=== PATIENT | female | born 1945 | race Caucasian/White ===

== ENCOUNTER 2020-01-29 23:51 | Emergency (ER) | payer MEDICARE, SELFPAY ==
[2020-01-30] VITALS: BP 122/60; PULSE 80; RESP 18; O2SAT 99
[2020-01-30 00:54] VITALS: BP 130/63; PULSE 77; RESP 18; TEMP 36.9; BMI 53.6
[2020-01-30 01:07] VITALS: BP 130/63; PULSE 77; RESP 18; TEMP 36.9; O2SAT 98; BMI 53.6
--- NOTE | 2020-01-30 01:54 | ED.GENADULT ---
HPI - General Adult General Chief complaint: Extremity Injury, Lower Stated complaint: LEG PAIN Time Seen by Provider: 01/30/20 00:48 Source: patient Mode of arrival: ambulatory Limitations: no limitations History of Present Illness HPI narrative: 74-year-old female with a history of hyperlipidemia, hypothyroidism presents today with left leg pain. She reports that in the past she has occasionally gotten shooting, cramping pain that went up the anterior aspect of her left leg. She usually gets these and they stopped her knee. Tonight she was lying down, she had one of these episodes that shot up into her left groin. The pain was severe, but similar to prior episodes. She is concerned because the pain went up into her left groin. She denies any back pain. She denies any swelling in her legs. She denies any history of DVT or pulmonary embolism. She got up and walked around and over the course of several minutes the pain went away. She denies any numbness, weakness, paresthesias to her extremities at this time. She denies any chest pain or shortness of breath. Onset (ago): hour(s) Related Data Allergies Allergy/AdvReac Type Severity Reaction Status Date / Time No Known Allergies Allergy Unverified 01/15/20 17:05 penicillin Allergy Unknown Uncoded 12/15/19 00:00 succinylcholine Allergy Unknown Uncoded 12/15/19 00:00 Review of Systems Review of Systems: Yes all other systems are reviewed and are negative Constitutional: Constitutional: Denies chills, Denies fever(s) and Denies weakness Eyes: Eyes: Reports blurry vision, Reports decreased night vision and Denies itchy eyes ENT: Denies dry mouth Cardiovascular: Cardiovascular: Denies chest pain, Denies epigastric discomfort, Denies rapid heart rate and Denies dyspnea Respiratory: Respiratory: Denies cough and Denies dyspnea Gastrointestinal: Gastrointestinal: Denies constipation, Denies diarrhea, Denies nausea and Denies vomiting Genitourinary: Genitourinary: Denies urinary incontinence and Denies urinary hesitancy Musculoskeletal: Musculoskeletal: Reports myalgias ( Left leg pain), Denies numbness, Denies stiffness, Denies tingling and Reports other ( Anterior left leg pain extending into her left groin) Integumentary/Breasts: Skin/Breast: Denies lesions and Denies rash Neurologic: Denies confusion, Denies numbness, Denies tingling and Denies weakness Psychiatric: Psychiatric: Denies confusion Hematologic/Lymphatic: Hematologic/Lymphatic: Denies easy bleeding and Denies easy bruising Allergic/Immunologic: Allergic/Immunologic: Denies urticaria and Denies itchy eyes PMFSH Past Medical History Medical History Hypercholesteremia Social History Social History Advance Directives: No Advance Directives Information Provided: No Physical Exam Vital Signs and I&O and Narrative: Vital Signs and I&O: Vital Signs Temp 98.4 F 01/30/20 01:07 Pulse 77 01/30/20 01:07 Resp 18 01/30/20 01:07 BP 130/63 01/30/20 01:07 Pulse Ox 98 01/30/20 01:07 Intake & Output 01/29/20 01/29/20 01/30/20 06:59 18:59 06:59 Weight 133 kg Body Mass Index 53.6 Const: General: cooperative, no acute distress, alert and awake; No confusion Orientation/consciousness: patient oriented x3 and No confusion HENMT: Head: Yes normal to inspection, Yes normocephalic and Yes atraumatic Ears: hearing grossly normal bilaterally and external ears normal Mouth: Normal oral and palatal mucosa present Eyes: Eyelids: Yes eyelids normal Conjunctivae: conjunctivae normal Sclerae: sclerae normal Corneas: corneas normal EOM: EOMs intact bilaterally Neck: Neck: Yes normal visual inspection, Yes full ROM and Yes trachea midline Resp: Effort & Inspection: normal respiratory effort and no tracheal deviation Auscultation: clear to auscultation bilaterally Cardio: Jugular venous distension: no JVD Rate: regular rate Rhythm: regular rhythm Heart sounds: S1 normal heart sound present and S2 normal heart sound present GI: Inspection: Yes normal to inspection Palpation (GI): Soft to palpation and nontender Skin: General skin exam: no rashes or lesions noted Neuro: General: patient oriented x3, moves all extremities and No confusion Motor exam (neuro): Normal motor muscle tone present throughout Extrem: General: Yes normal to inspection and Yes full ROM Left lower extremity: normal to inspection, full ROM, normal capillary refill and no joint enlargement; no cyanosis and no edema Psych: Appearance: grossly normal and well kempt Mental Status: mental status grossly normal Medical Decision Making MDM Narrative Medical decision making narrative: 74-year-old female presenting today with sudden onset cramping pain on the anterior aspect of her left leg that extended up into her groin. She is neurovascularly intact. The sensation was only intermittent in nature. She denies any history of DVT and there is no leg swelling and I have low suspicion of DVT in this patient. Differential includes muscle spasm versus electrolyte abnormality. Laboratory not reveal any evidence of hypokalemia or hypomagnesemia, the rest of her lab work is reassuring. The patient was provided with discharge instructions and return precautions which she acknowledged. Lab Data Result diagrams: 01/30/20 02:37 01/30/20 02:37 Labs: Lab Results 01/30/20 01/30/20 Range/Units 02:37 02:37 WBC 6.8 (4.8-10.8) X10*3/uL RBC 4.41 (4.20-5.50) X10*6/uL Hgb 13.3 (12.0-16.0) g/dl Hct 39.0 (37-47) % MCV 88.4 (80-98) fL MCH 30.2 (27.0-33.0) pg MCHC 34.1 (31.0-35.0) g/dl RDW 13.5 (11.0-16.0) % Plt Count 220 (160-400) X10*3/uL MPV 9.4 (9.4-12.3) fL Immature Gran % (Auto) 0.1 (0.0-0.4) % Neut % (Auto) 73.1 H (45-73) % Lymph % (Auto) 16.1 L (20-40) % [place] % (Auto) 8.4 (2-11) % Eos % (Auto) 1.9 (0-4) % Baso % (Auto) 0.4 (0-2) % Neut # (Auto) 5.0 (2.0-8.3) X10*3/uL Lymph # (Auto) 1.1 L (1.2-4.9) X10*3/uL [place] # (Auto) 0.6 (0.1-1.2) X10*3/uL Eos # (Auto) 0.1 (0.0-0.4) X10*3/uL Baso # (Auto) 0.0 (0.0-0.2) X10*3/uL Abs Immat Gran (auto) 0.01 (0.00-0.03) X10*3/uL Absolute Nucleated RBC 0.000 (0.0-0.012) X10*3/uL Nucleated RBC % (auto) 0.0 (0.0-0.2) /100WBC Sodium 140 (135-145) mmol/L Potassium 3.7 (3.3-5.1) mmol/l Chloride 105 (96-108) mmol/L Carbon Dioxide 26 (22-29) mmol/L Anion Gap 13 (12-20) BUN 16 (9-16) mg/dL Creatinine 0.72 (0.5-1.4) mg/dL Estim Creat Clear Calc 92.8 Estimated GFR > 60 Random Glucose 93 (60-115) mg/dL Calcium 9.0 (8.4-10.2) mg/dL Magnesium 2.3 (1.6-2.6) mg/dL Discharge Plan Discharge Clinical Impression: Acute pain of left lower extremity Patient Disposition: Home, Self-Care Instructions: Leg Cramps (ED) Additional Instructions: Your lab work was reassuring. Please followup with your primary care doctor in 1-2 days for reevaluation. If you develop any new or concerning symptoms please return to the emergency department. Interventions: ED Discharge Assessment Last Done: 01/30/20 04:13 Discharge Date/Time: 01/30/20 04:15
[2020-01-30 02:44] LABS: MANUAL DIFF FLAG NO
[2020-01-30 02:45] LABS: Basophils Percent Auto 0.4 % (0-2); Eosinophils Absolute Auto 0.1 X10*3/uL (0.0-0.4); Eosinophils Percent Auto 1.9 % (0-4); Hemoglobin 13.3 g/dl (12.0-16.0); Imm Gran Abs Auto 0.01 X10*3/uL (0.00-0.03); Imm Gran Pct Auto 0.1 % (0.0-0.4); Lymphocytes Absolute Auto 1.1 X10*3/uL (1.2-4.9); Lymphocytes Percent Auto 16.1 % (20-40); Mean Corpuscular HGB Conc 34.1 g/dl (31.0-35.0); Mean Corpuscular Hemoglobin 30.2 pg (27.0-33.0); Mean Corpuscular Volume 88.4 fL (80-98); Mean Platelet Volume 9.4 fL (9.4-12.3); Monocytes Absolute Auto 0.6 X10*3/uL (0.1-1.2); Monocytes Percent Auto 8.4 % (2-11); Neutrophils Percent Auto 73.1 % (45-73); Platelet Count 220 X10*3/uL (160-400); Red Blood Count 4.41 X10*6/uL (4.20-5.50); Red Cell Distribution Width 13.5 % (11.0-16.0); White Blood Count 6.8 X10*3/uL (4.8-10.8)
[2020-01-30 03:14] LABS: Anion Gap 13 (12-20); Blood Urea Nitrogen 16 mg/dL (9-16); Carbon Dioxide 26 mmol/L (22-29); Chloride 105 mmol/L (96-108); Creatinine Clr Calc Pharmacy 92.8; Estimated Glomerular Filt Rate > 60; Glucose Random 93 mg/dL (60-115); Magnesium 2.3 mg/dL (1.6-2.6); Potassium 3.7 mmol/l (3.3-5.1); Sodium 140 mmol/L (135-145)
== END 2020-01-30 04:15 | disposition home or self-care (01) ==
PROVIDERS: Emergency Provider Emergency Medicine; PCP Internal Medicine
DX: M79.662 Pain in left lower leg (principal); E03.9 Hypothyroidism, unspecified; Z79.899 Other long term (current) drug therapy
CPT/HCPCS: 36415; 80048; 83735; 85025; 99283; 99284

== ENCOUNTER 2020-02-25 08:24 | Outpatient (REF) | payer MEDICARE, SELFPAY ==
--- NOTE | 2020-02-25 | US_ITS ---
EXAMINATION: US ABDOMEN COMPLETE CLINICAL INFORMATION: Epigastric pain. COMPARISON: CT abdomen and pelvis 12/26/2017. Ultrasound abdomen 06/21/2010. TECHNIQUE: Real-time imaging of the abdominal viscera. FINDINGS: PANCREAS: Normal. ABDOMINAL AORTA: The proximal, mid, and distal segments are normal in caliber. INFERIOR VENA CAVA: Visualized portions are normal. LIVER: Normal. The liver is normal in size. The liver contour is normal. Parenchymal echogenicity is normal. No focal hepatic lesion. There is no intrahepatic biliary duct dilatation seen. There is normal hepatopedal flow seen in the middle portal vein on Doppler exam GALLBLADDER: Normal. The gallbladder is physiologically distended without evidence of stones, sludge, polyps, wall thickening or pericholecystic fluid. COMMON BILE DUCT: Normal in caliber measuring 0.2 cm in diameter. RIGHT KIDNEY: There is anechoic cyst in the upper pole measuring 0.9 x 1.2 x 1.4 cm in lower pole measuring 0.8 x 1.1 x 0.8 cm . No hydronephrosis or renal calculi. The kidney measures 10.1 cm in maximum dimension. LEFT KIDNEY: Normal. No hydronephrosis. No renal calculi or focal parenchymal lesions. The kidney measures 9.0 cm in maximum dimension. SPLEEN: Normal. The spleen measures 7.7 cm in maximum dimension. FREE FLUID: None. US/US abdomen complete IMPRESSION: 2 anechoic cyst upper lobe pole right kidney. Rest of the abdominal ultrasound is unremarkable
== END 2020-02-25 08:25 | disposition home or self-care (01) ==
LOC: HO.HMGCX 08:24
PROVIDERS: PCP Internal Medicine; Visit Provider Internal Medicine
DX: R10.13 Epigastric pain (principal)
CPT/HCPCS: 76700

== ENCOUNTER → 2020-03-10 10:38 | Outpatient (BNVA) | payer MEDICARE, SELFPAY | PROVIDERS: PCP Internal Medicine; Visit Provider Internal Medicine Cardiovascular Disease | DX: R07.9 Chest pain, unspecified (principal); I95.9 Hypotension, unspecified | CPT/HCPCS: 99212 ==

== ENCOUNTER 2020-03-31 09:29 | Day surgery (SDC) | payer MEDICARE, SELFPAY ==
[2020-03-24 12:49] VITALS: BMI 19.7
--- NOTE | 2020-03-30 10:16 | HO.ANESPROP2 ---
Documented by User: Alejandrina Murguia 03/30/20 10:18 HPI - Anesthesia Eval Consult details Narrative: 74yo F for Upper Endoscopy Pseudocholinesterase Deficiency [facility] Past Medical History Medical History (Updated 03/24/20 @ 12:57 by Alejandrina Murguia) Crohn's colitis Hypercholesteremia Hypertension Hypothyroidism Pseudocholinesterase deficiency Ulcerative colitis Family History Family History (Updated 03/08/20 @ 09:04 by Ahmet Roth) Father Lung disease Mother Bone disease Diverticular disease Family/Other Thyroid condition Stomach cancer Surgical History Surgical History (Updated 03/24/20 @ 12:22 by Melanie Rahman) History of tonsillectomy Hx of oral surgery Hx of partial thyroidectomy History of Problems with Anesthesia: Yes (Pseudocholinesterase Deficiency) Social History Social History (Updated 03/24/20 @ 12:51 by Melanie Rahman) Alcohol intake: never Smoking Status: Never smoker Advance Directives: No Advance Directives Information Provided: No Advance Directives on File: No Meds Allergies Allergy/AdvReac Type Severity Reaction Status Date / Time penicillin Allergy Severe Hives Uncoded 03/24/20 12:46 succinylcholine Allergy Severe pseudocholinesterase Uncoded 03/24/20 12:46 deficiency Home Medications Medication Instructions Recorded Confirmed Type atorvastatin 10 mg tablet 10 mg PO DAILY 03/10/20 03/24/20 History calcium carbonate 600 mg (1,500 2 tab PO DAILY 03/10/20 03/24/20 History mg)-vitamin D3 400 unit tablet ferrous sulfate 325 mg (65 mg 325 mg PO DAILY 03/10/20 03/24/20 History iron) tablet cholecalciferol (vitamin D3) 25 mcg PO DAILY 03/24/20 03/24/20 History [Vitamin D3] mesalamine [Lialda] 1.2 g PO DAILY 03/24/20 03/24/20 History multivitamin 1 tab PO DAILY 03/24/20 03/24/20 History Exam Exam Date and Time: March 30, 2020 1016 Height,Weight and Vital Signs: Height 5 ft 2 in Weight 48.988 kg Pertinent Lab Results Pertinent Lab Results: Laboratory Tests 01/30/20 01/30/20 02:37 02:37 WBC 6.8 Hgb 13.3 Hct 39.0 Plt Count 220 Sodium 140 Potassium 3.7 Chloride 105 Carbon Dioxide 26 BUN 16 Creatinine 0.72 Assessment and Plan Assessment Anesthesia Assessment: Chart Reviewed Documented by User: Herrera Keating 03/31/20 11:00 PMFSH Past Medical History Medical History (Updated 03/24/20 @ 12:57 by Alejandrina Murguia) Crohn's colitis Hypercholesteremia Hypertension Hypothyroidism Pseudocholinesterase deficiency Ulcerative colitis Family History Family History (Updated 03/08/20 @ 09:04 by Ahmet Roth) Father Lung disease Mother Bone disease Diverticular disease Family/Other Thyroid condition Stomach cancer Surgical History Surgical History (Updated 03/24/20 @ 12:22 by Melanie Rahman) History of tonsillectomy Hx of oral surgery Hx of partial thyroidectomy Social History Social History (Updated 03/24/20 @ 12:51 by Melanie Rahman) Alcohol intake: never Smoking Status: Never smoker Advance Directives: No Advance Directives Information Provided: No Advance Directives on File: No Meds Allergies Allergy/AdvReac Type Severity Reaction Status Date / Time penicillin Allergy Severe Hives Uncoded 03/24/20 12:46 succinylcholine Allergy Severe pseudocholinesterase Uncoded 03/24/20 12:46 deficiency Home Medications Medication Instructions Recorded Confirmed Type atorvastatin 10 mg tablet 10 mg PO DAILY 03/10/20 03/24/20 History calcium carbonate 600 mg (1,500 2 tab PO DAILY 03/10/20 03/24/20 History mg)-vitamin D3 400 unit tablet ferrous sulfate 325 mg (65 mg 325 mg PO DAILY 03/10/20 03/24/20 History iron) tablet cholecalciferol (vitamin D3) 25 mcg PO DAILY 03/24/20 03/24/20 History [Vitamin D3] mesalamine [Lialda] 1.2 g PO DAILY 03/24/20 03/24/20 History multivitamin 1 tab PO DAILY 03/24/20 03/24/20 History Exam Airway Mallampati Class: II TM Dist: >3cm Neck ROM: Full Loose/Missing/Broken Teeth: No Heart: [id number] Lungs: cta b/l Assessment and Plan Assessment Anesthesia Assessment: Anesthesia Plan Discussed, PAT Visit and Chart Reviewed Final Anesthetic Review NPO: Yes ASA Class: II Final Preanesthetic Review: No Changes in Pt Med Stat, Meds/Allgs Chart Reviewed, Consent Obtained/Reviewed and Anes Risks/Benef Reviewed Patient Risk: Low Procedure Risk: Low Assessment/Block/Sedation in SS: Assess/Block/Sedation-SS Anesthetic Plan Anesthetic Plan: MAC: Disposition: Standard PACU
[2020-03-31] VITALS (9 sets, daily range): BP systolic 71–120; BP diastolic 39–67; PULSE 66–83; RESP 14–19; TEMP 36.3–36.9; O2SAT 94–99
[2020-03-31] MEDS: Lactated Ringers 1,000 ML 100 ML IVCONT (10:00)
--- NOTE | 2020-03-31 11:14 | PM.OP ---
Brief Operative Note Date of Service: 03/31/20 Pre-op diagnosis: Abdominal pain Post-op diagnosis: other (Proximal gastric ulcer, Hiatal hernia, R/O Bentley's, Antral gastritis) Procedure: EGD with biopsy Surgeon: Hans Tyler Anesthesia: MAC Estimated blood loss (mL): 4.0 Pathology: other (A. Gastric antrum B. Proximal gastric ulcer C. EG Junction at 35cm) Condition: stable Disposition: PACU
--- NOTE | 2020-03-31 11:40 | OP_ITS ---
SURGEON: Hans Tyler MD INDICATIONS: The patient presents for evaluation of abdominal discomfort. Full consent has been obtained from her for this, including risks of bleeding and perforation. PREOPERATIVE DIAGNOSIS: Abdominal discomfort. POSTOPERATIVE DIAGNOSIS: PROCEDURE PERFORMED: Esophagogastroduodenoscopy with biopsies. ESTIMATED BLOOD LOSS: COMPLICATIONS: ANESTHESIA: Monitored anesthesia care. ASSISTANTS: SPECIMENS: POSTOPERATIVE DIAGNOSES: Abdominal discomfort, small proximal gastric ulcer, hiatal hernia, rule out Bentley's esophagus, mild antral gastritis. DESCRIPTION OF PROCEDURE: The patient was placed in the left lateral decubitus position. The Olympus video gastroscope was passed in the posterior oropharynx and upper esophagus under direct vision. The scope was passed slowly into the distal esophagus. The gastroesophageal junction appeared at 35 cm. Extending from this to just 34 cm, was a small patch of possible Bentley's mucosa. There was no esophagitis nor any lesions. The scope was entered into the stomach. There was a small hiatal hernia. The scope was advanced to pylorus and duodenum was cannulated to the descending portion. The duodenum including the bulb appeared normal without mass or ulceration. The scope was withdrawn back in the stomach. The gastric antrum had some areas of erythema and edema, but no erosions or ulceration. There was good peristalsis. The scope was retroflexed visualizing the proximal stomach carefully, which appeared normal, without any mass or ulceration. The scope was straightened. Biopsies were obtained from the gastric antrum. The scope was withdrawn back into the proximal stomach. In the forward viewing position, approximately 5 cm below the EG junction, on the posterior wall, was an approximately 5 mm gastric ulcer with some surrounding edema. There was no sign of bleeding nor any mass. Biopsies were obtained from it. The remainder of the proximal stomach appeared normal. The scope was withdrawn back into the esophagus. Biopsies were obtained between 34 and 35 cm in the area of possible Bentley's mucosa. The remainder of the esophagus appeared completely normal. The scope was withdrawn from the patient. She tolerated the procedure well and was returned to recovery area in stable condition. IMPRESSION: 1. Small proximal gastric ulcer. 2. Mild gastritis. 3. Hiatal hernia. 4. Rule out Bentley's esophagus. PLAN: The results of the biopsies will be checked. If Helicobacter pylori is present in the gastric biopsies, we could consider treating that. I shall send her home with a prescription to use omeprazole 20 mg daily. She was advised to avoid all aspirin and NSAIDs. She was advised to see me in 2 to 3 months for a followup visit. Recent abdominal ultrasound was negative other than some renal cysts. There was no evidence of any gallstones. This has all been discussed with her . MD MIS Hurst/OTTO / [id number]
== END 2020-03-31 12:11 | disposition home or self-care (01) ==
PROVIDERS: PCP Internal Medicine; Visit Provider Internal Medicine
PROC: 0DJ08ZZ Inspection of Upper Intestinal Tract, Via Natural or Artificial Opening Endoscopic (ICD-10-PCS; CPT 43235; principal; 2020-03-31 10:30)
DX: K25.7 Chronic gastric ulcer without hemorrhage or perforation (principal); K29.70 Gastritis, unspecified, without bleeding; K44.9 Diaphragmatic hernia without obstruction or gangrene; E88.09 Other disorders of plasma-protein metabolism, not elsewhere classified; K50.10 Crohn's disease of large intestine without complications; Z79.899 Other long term (current) drug therapy
CPT/HCPCS: 43239; 88305; 88342

== ENCOUNTER 2020-06-09 08:35 | Outpatient (REF) | payer MEDICARE, SELFPAY ==
[2020-06-09 11:11] LABS: MANUAL DIFF FLAG NO
[2020-06-09 11:34] LABS: Basophils Percent Auto 0.7 % (0-2); Eosinophils Absolute Auto 0.1 X10*3/uL (0.0-0.4); Eosinophils Percent Auto 2.6 % (0-4); Hematocrit 43.7 % (37-47); Hemoglobin 14.4 g/dl (12.0-16.0); Imm Gran Abs Auto 0.01 X10*3/uL (0.00-0.03); Imm Gran Pct Auto 0.2 % (0.0-0.4); Lymphocytes Absolute Auto 0.9 X10*3/uL (1.2-4.9); Lymphocytes Percent Auto 16.7 % (20-40); Mean Corpuscular Hemoglobin 29.5 pg (27.0-33.0); Mean Corpuscular Volume 89.5 fL (80-98); Mean Platelet Volume 10.3 fL (9.4-12.3); Monocytes Absolute Auto 0.4 X10*3/uL (0.1-1.2); Monocytes Percent Auto 7.9 % (2-11); Neutrophils Absolute Auto 3.8 X10*3/uL (2.0-8.3); Neutrophils Percent Auto 71.9 % (45-73); Platelet Count 240 X10*3/uL (160-400); Red Blood Count 4.88 X10*6/uL (4.20-5.50); Red Cell Distribution Width 13.5 % (11.0-16.0); White Blood Count 5.3 X10*3/uL (4.8-10.8)
[2020-06-09 12:01] LABS: Alanine Aminotransferase 26 U/L (0-31); Aspartate Amino Transferase 26 U/L (5-31); Ferritin 28 ng/mL (10-250); HDL Cholesterol 60 mg/dL; Iron 88 mcg/dL (30-160); Percent Iron Saturation 27 % (15-50); Thyroid Stimulating Hormone 2.68 uIU/mL (0.32-4.0); Total Iron Binding Capacity 327 mcg/dL (228-428); Unsaturated Iron Binding 239 ug/dL; Vitamin D 25-OH Total 73.9 ng/mL (>30)
[2020-06-09 12:03] LABS: Albumin Level 4.2 g/dL (3.5-5.0); Alkaline Phosphatase 88 U/L (39-117); Anion Gap 11 (12-20); Bilirubin Total 0.5 mg/dL (0.0-1.0); Blood Urea Nitrogen 14 mg/dL (9-16); Carbon Dioxide 32 mmol/L (22-29); Chloride 103 mmol/L (96-108); Cholesterol 162 mg/dL; Estimated Glomerular Filt Rate > 60; Glucose Fasting 92 mg/dL (60-99); LDL Cholesterol Calculated 91 mg/dl; Potassium 4.7 mmol/L (3.3-5.1); Sodium 141 mmol/L (135-145); Total Protein 6.9 g/dL (6.5-8.0); Triglycerides 58 mg/dL
== END 2020-06-09 08:36 | disposition home or self-care (01) ==
LOC: HO.HMGCLDS 08:35
PROVIDERS: PCP Internal Medicine; Visit Provider Internal Medicine
DX: E78.00 Pure hypercholesterolemia, unspecified (principal); K51.90 Ulcerative colitis, unspecified, without complications; D50.0 Iron deficiency anemia secondary to blood loss (chronic); E04.2 Nontoxic multinodular goiter
CPT/HCPCS: 36415; 80053; 80061; 82306; 82728; 83540; 84443; 85025

== ENCOUNTER 2020-12-10 08:25 | Outpatient (REF) | payer MEDICARE, SELFPAY ==
[2020-12-10 11:29] LABS: MANUAL DIFF FLAG NO
[2020-12-10 11:38] LABS: Basophils Percent Auto 0.8 % (0-2); Eosinophils Absolute Auto 0.1 X10*3/uL (0.0-0.4); Eosinophils Percent Auto 2.5 % (0-4); Hematocrit 43.1 % (37-47); Hemoglobin 14.3 g/dl (12.0-16.0); Imm Gran Abs Auto 0.01 X10*3/uL (0.00-0.03); Imm Gran Pct Auto 0.2 % (0.0-0.4); Lymphocytes Absolute Auto 0.9 X10*3/uL (1.2-4.9); Lymphocytes Percent Auto 19.4 % (20-40); Mean Corpuscular HGB Conc 33.2 g/dl (31.0-35.0); Mean Corpuscular Hemoglobin 29.2 pg (27.0-33.0); Monocytes Absolute Auto 0.4 X10*3/uL (0.1-1.2); Monocytes Percent Auto 8.3 % (2-11); Neutrophils Absolute Auto 3.3 X10*3/uL (2.0-8.3); Neutrophils Percent Auto 68.8 % (45-73); Platelet Count 256 X10*3/uL (160-400); Red Cell Distribution Width 13.1 % (11.0-16.0); White Blood Count 4.8 X10*3/uL (4.8-10.8)
[2020-12-10 11:55] LABS: Alanine Aminotransferase 21 U/L (0-31); Albumin Level 4.2 g/dL (3.5-5.0); Alkaline Phosphatase 83 U/L (39-117); Anion Gap 12 (12-20); Aspartate Amino Transferase 22 U/L (5-31); Bilirubin Total 0.5 mg/dL (0.0-1.0); Blood Urea Nitrogen 15 mg/dL (9-16); Calcium 9.5 mg/dL (8.4-10.2); Carbon Dioxide 29 mmol/L (22-29); Chloride 104 mmol/L (96-108); Cholesterol 215 mg/dL; Estimated Glomerular Filt Rate > 60; Glucose Fasting 95 mg/dL (60-99); HDL Cholesterol 56 mg/dL; Iron 131 mcg/dL (30-160); LDL Cholesterol Calculated 143 mg/dl; Percent Iron Saturation 40 % (15-50); Potassium 4.6 mmol/L (3.3-5.1); Sodium 140 mmol/L (135-145); Total Iron Binding Capacity 328 mcg/dL (228-428); Total Protein 7.1 g/dL (6.5-8.0); Triglycerides 84 mg/dL; Unsaturated Iron Binding 197 ug/dL
[2020-12-10 12:18] LABS: Thyroid Stimulating Hormone 2.91 uIU/mL (0.32-4.0); Vitamin D 25-OH Total 60.5 ng/mL (>30)
[2020-12-10 12:22] LABS: Ferritin 31 ng/mL (10-250)
== END 2020-12-10 08:26 | disposition home or self-care (01) ==
LOC: HO.HMGCLDS 08:25
PROVIDERS: PCP Internal Medicine; Visit Provider Internal Medicine
DX: F41.9 Anxiety disorder, unspecified (principal); K51.90 Ulcerative colitis, unspecified, without complications; D50.0 Iron deficiency anemia secondary to blood loss (chronic); E78.00 Pure hypercholesterolemia, unspecified; E04.2 Nontoxic multinodular goiter
CPT/HCPCS: 36415; 80053; 80061; 82306; 82728; 83540; 84443; 85025

== ENCOUNTER → 2021-03-09 09:47 | Outpatient (BNVA) | payer MEDICARE, SELFPAY | PROVIDERS: PCP Internal Medicine; Visit Provider Internal Medicine Cardiovascular Disease | DX: R07.9 Chest pain, unspecified (principal); R03.1 Nonspecific low blood-pressure reading; E78.00 Pure hypercholesterolemia, unspecified; E78.5 Hyperlipidemia, unspecified; E89.0 Postprocedural hypothyroidism; K51.90 Ulcerative colitis, unspecified, without complications; F41.9 Anxiety disorder, unspecified; Z88.0 Allergy status to penicillin; Z88.8 Allergy status to other drugs, medicaments and biological substances; Z79.899 Other long term (current) drug therapy | CPT/HCPCS: 93005; 99212 ==

== ENCOUNTER 2021-07-22 11:15 | Outpatient (REF) | payer MEDICARE, SELFPAY ==
[2021-07-22 13:37] LABS: MANUAL DIFF FLAG NO
[2021-07-22 13:40] LABS: Basophils Percent Auto 0.5 % (0-2); Eosinophils Absolute Auto 0.1 X10*3/uL (0.0-0.4); Eosinophils Percent Auto 1.8 % (0-4); Hematocrit 41.8 % (37.0-47.0); Hemoglobin 13.2 g/dl (12.0-16.0); Imm Gran Abs Auto 0.02 X10*3/uL (0.00-0.03); Imm Gran Pct Auto 0.3 % (0.0-0.4); Lymphocytes Absolute Auto 1.2 X10*3/uL (1.2-4.9); Mean Corpuscular HGB Conc 31.6 g/dl (31.0-35.0); Mean Corpuscular Hemoglobin 28.4 pg (27.0-33.0); Mean Corpuscular Volume 90.1 fL (80.0-98.0); Mean Platelet Volume 9.5 fL (9.4-12.3); Monocytes Absolute Auto 0.5 X10*3/uL (0.1-1.2); Monocytes Percent Auto 7.1 % (2-11); Neutrophils Absolute Auto 5.4 x10*3/uL (2.0-8.3); Neutrophils Percent Auto 74.3 % (45-73); Platelet Count 343 X10*3/uL (160-400); Red Blood Count 4.64 X10*6/uL (4.20-5.50); Red Cell Distribution Width 13.1 % (11.0-16.0); White Blood Count 7.3 X10*3/uL (4.8-10.8)
[2021-07-22 13:51] LABS: Appearance Urine HAZY; Color Urine STRAW; Glucose Urine UA NEG (NEG); Leukocyte Esterase Urine NEG (NEG); Nitrite Urine NEG (NEG); PH 5.5 (5.0-8.0); Specific Gravity - Urine <= 1.005 (1.005-1.025); Urine Blood TRACE (NEG); Urine Ketones NEG (NEG); Urine Protein NEG (NEG-TRACE)
[2021-07-22 14:04] LABS: RBC Urine 0-2 /HPF (0); Squamous Epithelial Cell Urine TRACE /LPF; WBC Urine 0-2 /HPF (0-4)
[2021-07-22 14:09] LABS: Alanine Aminotransferase 22 U/L (0-31); Albumin Level 4.1 g/dL (3.5-5.0); Alkaline Phosphatase 86 U/L (39-117); Anion Gap 12 (12-20); Aspartate Amino Transferase 21 U/L (5-31); Bilirubin Total 0.4 mg/dL (0.0-1.0); Blood Urea Nitrogen 15 mg/dL (9-16); C Reactive Protein 0.52 mg/dL (< or = 0.50); Calcium 9.8 mg/dL (8.4-10.2); Carbon Dioxide 31 mmol/L (22-29); Chloride 101 mmol/L (96-108); Estimated Glomerular Filt Rate > 60; Glucose Random 85 mg/dL (60-115); Potassium 5.6 mmol/L (3.3-5.1); Sodium 138 mmol/L (135-145); Total Protein 7.1 g/dL (6.5-8.0)
[2021-07-22 14:20] LABS: Erythrocyte Sedimentation Rate 15 MM/HR (0-20)
== END 2021-07-22 11:16 | disposition home or self-care (01) ==
LOC: HO.HMGCLDS 11:15
PROVIDERS: Visit Provider Internal Medicine
DX: R42 Dizziness and giddiness (principal); R53.83 Other fatigue
CPT/HCPCS: 36415; 80053; 81001; 85025; 85652; 86140

== ENCOUNTER 2021-10-13 07:44 | Outpatient (REF) | payer MEDICARE, SELFPAY ==
[2021-10-13 08:15] LABS: MANUAL DIFF FLAG NO
[2021-10-13 08:39] LABS: Basophils Percent Auto 0.7 % (0-2); Eosinophils Absolute Auto 0.1 X10*3/uL (0.0-0.4); Eosinophils Percent Auto 2.4 % (0-4); Hematocrit 42.4 % (37.0-47.0); Hemoglobin 14.1 g/dl (12.0-16.0); Imm Gran Abs Auto 0.01 X10*3/uL (0.00-0.03); Imm Gran Pct Auto 0.2 % (0.0-0.4); Mean Corpuscular HGB Conc 33.3 g/dl (31.0-35.0); Mean Corpuscular Volume 87.1 fL (80.0-98.0); Mean Platelet Volume 9.1 fL (9.4-12.3); Monocytes Absolute Auto 0.4 X10*3/uL (0.1-1.2); Monocytes Percent Auto 7.4 % (2-11); Neutrophils Absolute Auto 4.2 x10*3/uL (2.0-8.3); Neutrophils Percent Auto 72.3 % (45-73); Platelet Count 254 X10*3/uL (160-400); Red Blood Count 4.87 X10*6/uL (4.20-5.50); Red Cell Distribution Width 14.3 % (11.0-16.0); White Blood Count 5.8 X10*3/uL (4.8-10.8)
[2021-10-13 09:03] LABS: Alanine Aminotransferase 24 U/L (0-31); Albumin Level 4.2 g/dL (3.5-5.0); Alkaline Phosphatase 87 U/L (39-117); Anion Gap 11 (12-20); Aspartate Amino Transferase 24 U/L (5-31); Bilirubin Total 0.4 mg/dL (0.0-1.0); Blood Urea Nitrogen 16 mg/dL (9-16); C Reactive Protein 0.18 mg/dL (< or = 0.50); Calcium 9.5 mg/dL (8.4-10.2); Carbon Dioxide 29 mmol/L (22-29); Chloride 105 mmol/L (96-108); Cholesterol 218 mg/dL; Estimated Glomerular Filt Rate > 60; Glucose Fasting 97 mg/dL (60-99); HDL Cholesterol 50 mg/dL; LDL Cholesterol Calculated 153 mg/dl; Sodium 140 mmol/L (135-145); Triglycerides 78 mg/dL
[2021-10-13 09:26] LABS: Thyroid Stimulating Hormone 2.98 uIU/mL (0.32-4.0)
== END 2021-10-13 07:45 | disposition home or self-care (01) ==
LOC: HO.LAB 07:44
PROVIDERS: PCP Internal Medicine; Visit Provider Internal Medicine
DX: K51.90 Ulcerative colitis, unspecified, without complications (principal); D50.0 Iron deficiency anemia secondary to blood loss (chronic); I87.2 Venous insufficiency (chronic) (peripheral)
CPT/HCPCS: 36415; 80053; 80061; 84443; 85025; 86140

== ENCOUNTER 2021-10-17 08:34 | Day surgery (SDC) | payer MEDICARE, SELFPAY ==
[2021-10-11 12:02] VITALS: BMI 20.5
--- NOTE | 2021-10-13 13:28 | P.CONAN_ITS ---
Documented by User: Alejandrina Murguia NP 10/13/21 13:31 HPI - Anesthesia Eval Consult details Narrative: 76yo F for Colonoscopy Pseudocholinesterase deficiency PMFSH Active Problems Active Problems: All Active Problems (Updated 03/24/20 @ 12:57 by Alejandrina Murguia NP) Chest pain (Acute) Hypertension (Acute) Past Medical History Medical History Crohn's colitis Hypercholesteremia Hypothyroidism Pseudocholinesterase deficiency Ulcerative colitis Family History Family History Father Lung disease Mother Bone disease Diverticular disease Family/Other Thyroid condition Stomach cancer Surgical History Surgical History History of esophagogastroduodenoscopy (EGD) History of tonsillectomy Hx of colonoscopy Hx of oral surgery Hx of partial thyroidectomy History of Problems with Anesthesia: Yes (Pseudocholinesterase Deficiency) Social History Social History Alcohol intake: never Patient Tobacco Use Status: Never used Tobacco Use of substances other than those prescribed or required for medical reasons: No Are you DNR?: No Advance Directives: No Advance Directives Information Provided: Yes Meds Allergies Allergy/AdvReac Type Severity Reaction Status Date / Time penicillin Allergy Severe Hives Uncoded 10/17/21 09:50 succinylcholine Allergy Severe pseudocholinesterase Uncoded 10/17/21 09:50 deficiency Home Medications Medication Instructions Recorded Confirmed Last Taken Type cholecalciferol (vitamin D3) 25 25 mcg PO DAILY 03/24/20 10/17/21 Unknown Histo ry mcg (1,000 unit) capsule (Vitamin D3) mesalamine 1.2 gram tablet,delayed 1.2 g PO DAILY 03/24/20 10/17/21 Unknown History release (Lialda) multivitamin 1 tab PO DAILY 03/24/20 10/17/21 Unknown History Exam Exam Date and Time: October 13, 2021 1328 Height,Weight and Vital Signs: Height 5 ft 2 in Weight 50.802 kg Pertinent Lab Results Pertinent Lab Results: Laboratory Tests 10/13/21 10/13/21 08:14 08:14 WBC 5.8 Hgb 14.1 Hct 42.4 Plt Count 254 D Sodium 140 Potassium 5.0 Chloride 105 Carbon Dioxide 29 BUN 16 Creatinine 0.79 Narrative Narrative: EKG 02/2021 NSR 67/min, normal EKG, QTc 378 msec Echocardiography November 2019 showing normal left ventricular ejection fraction of 55-60%, mild mitral valve regurgitation, [id number] tricuspid valve regurgitation and mild pulmonary hypertension. Stress test performed 12/25/2019, she was able to exercise for 7 minutes 6 seconds achieving a workload of 8.6 Mets.? No ischemic changes were noticed.? She had isolated atrial premature beats.? Stress echocardiography did not show any wall motion abnormality at rest or with stress. Assessment and Plan Assessment Anesthesia Assessment: Chart Reviewed Final Anesthetic Review History of Problems with Anesthesia: Yes (Pseudocholinesterase Deficiency) Documented by User: Karina Key MD 10/17/21 10:11 [facility] Past Medical History Medical History Crohn's colitis Hypercholesteremia Hypothyroidism Pseudocholinesterase deficiency Ulcerative colitis Family History Family History Father Lung disease Mother Bone disease Diverticular disease Family/Other Thyroid condition Stomach cancer Surgical History Surgical History History of esophagogastroduodenoscopy (EGD) History of tonsillectomy Hx of colonoscopy Hx of oral surgery Hx of partial thyroidectomy Social History Social History Alcohol intake: never Patient Tobacco Use Status: Never used Tobacco Use of substances other than those prescribed or required for medical reasons: No Are you DNR?: No Advance Directives: No Advance Directives Information Provided: Yes Meds Allergies Allergy/AdvReac Type Severity Reaction Status Date / Time penicillin Allergy Severe Hives Uncoded 10/17/21 09:50 succinylcholine Allergy Severe pseudocholinesterase Uncoded 10/17/21 09:50 deficiency Home Medications Medication Instructions Recorded Confirmed Last Taken Type cholecalciferol (vitamin D3) 25 25 mcg PO DAILY 03/24/20 10/17/21 Unknown History mcg (1,000 unit) capsule (Vitamin D3) mesalamine 1.2 gram tablet,delayed 1.2 g PO DAILY 03/24/20 10/17/21 Unknown History release (Lialda) multivitamin 1 tab PO DAILY 03/24/20 10/17/21 Unknown History Exam Airway Mallampati Class: II (Dental implants) TM Dist: >3cm Neck ROM: Full Heart: RRR Lungs: CTA Assessment and Plan Assessment Anesthesia Assessment: Anesthesia Plan Discussed Final Anesthetic Review NPO: Yes ASA Class: II Final Preanesthetic Review: Meds/Allgs Chart Reviewed, Consent Obtained/Reviewed and Anes Risks/Benef Reviewed Patient Risk: Low Procedure Risk: Low Anesthetic Plan Anesthetic Plan: MAC: Disposition: Standard PACU
[2021-10-17 09:10] VITALS: BP 127/75; PULSE 77; RESP 16; TEMP 36; O2SAT 98
[2021-10-17] MEDS: Lactated Ringers 1,000 ML 100 ML IVCONT (09:33)
[2021-10-17 10:46] VITALS: BP 98/55; PULSE 70; RESP 20; TEMP 36.9; O2SAT 99
--- NOTE | 2021-10-17 10:53 | P.BOP_ITS ---
Brief Operative Note Date of Service: 10/17/21 Pre-op diagnosis: Crohn's colitis Post-op diagnosis: other (Same, R/O Dysplasia, Diverticulosis) Procedure: Colonoscopy to the cecum and TI with biopsies Surgeon: Hans Tyler Anesthesia: MAC Was an [employer] used for this Procedure?: No Estimated blood loss (mL): 5.0 Pathology: other (A. Asc. colon B. Transverse colon C. Desc. colon D. Sigmoid colon E. Rectum) Condition: stable Disposition: PACU
[2021-10-17 11:01] VITALS: BP 130/65; PULSE 76; RESP 16; O2SAT 98
--- NOTE | 2021-10-17 13:20 | OP_ITS ---
SURGEON: Hans Tyler MD INDICATIONS: The patient presents for evaluation of long-standing Crohn's colitis and colorectal cancer screening. Full consent was obtained from her for this, including risks of bleeding and perforation. PREOPERATIVE DIAGNOSIS: POSTOPERATIVE DIAGNOSIS: PROCEDURE PERFORMED: Colonoscopy to cecum and terminal ileum with multiple biopsies. ESTIMATED BLOOD LOSS: COMPLICATIONS: ANESTHESIA: Monitored anesthesia care. ASSISTANTS: SPECIMENS: PREOPERATIVE DIAGNOSES: Colorectal cancer screening and long-standing Crohn's colitis. POSTOPERATIVE DIAGNOSES: Colorectal cancer screening and long-standing Crohn's colitis, rule out dysplasia, mild sigmoid diverticulosis, small internal hemorrhoids. DESCRIPTION OF PROCEDURE: The patient was placed in the left lateral decubitus position. The digital rectal exam was negative for any sign of perianal disease, nor any other abnormalities. The Olympus video pediatric colonoscope was entered into the rectum and advanced easily to the cecum. Once in the cecum, I did identify normal-appearing cecal pouch with appendiceal orifice and a normal-appearing ileocecal valve. The terminal ileum was cannulated and appeared normal without any sign of Crohn's disease. The scope was withdrawn back in the colon. The entire cecum and ileocecal valve appeared normal. The scope was slowly withdrawn assessing all mucosal surfaces carefully. Preparation was excellent. I did not visualize any sign of active colitis. In various parts of the colon was some evidence of pallor and perhaps some minimal scarring from previous colitis, but there was no sign of any active colitis, polyps, nor angiodysplasia. There was a mild amount of sigmoid diverticulosis. In the rectum, the scope was retroflexed visualizing some small internal hemorrhoids, but no other pathology. There did appear to be more scarring in the rectum, but again no sign of any active Crohn's disease. The scope was straightened. I did obtain multiple random biopsies in the ascending colon, transverse colon, descending colon, sigmoid colon, and rectum. The scope was withdrawn from the patient. She tolerated the procedure well and was returned to recovery area in stable condition. IMPRESSION: 1. Crohn's colitis, rule out dysplasia. 2. Mild diverticulosis. 3. Internal hemorrhoids. PLAN: The results of the biopsies will be checked. Assuming there is no dysplasia, I would recommend a repeat colonoscopy in 3 years. She will continue her current regimen of the Lialda and I have recommended she use 4.8 g daily to hopefully maintain remission of the Crohn's disease. I advised her to see me in 1 year for a followup visit, but call sooner as needed. She was advised to avoid aspirin and NSAIDs long-term as well. MD MIS Hurst/OTTO / [id number] MTDD
== END 2021-10-17 11:40 | disposition home or self-care (01) ==
PROVIDERS: PCP Internal Medicine; Visit Provider Internal Medicine
PROC: 0DJD8ZZ Inspection of Lower Intestinal Tract, Via Natural or Artificial Opening Endoscopic (ICD-10-PCS; CPT 45378; principal; 2021-10-17 09:40)
DX: Z12.11 Encounter for screening for malignant neoplasm of colon (principal); Z86.010 Personal history of colon polyps; K50.10 Crohn's disease of large intestine without complications; K57.30 Diverticulosis of large intestine without perforation or abscess without bleeding; K64.8 Other hemorrhoids; E03.9 Hypothyroidism, unspecified; E78.5 Hyperlipidemia, unspecified; Z79.899 Other long term (current) drug therapy; Z88.0 Allergy status to penicillin; Z88.8 Allergy status to other drugs, medicaments and biological substances; Z86.16 Personal history of COVID-19
CPT/HCPCS: 45380; 88305

== ENCOUNTER 2022-01-25 14:00 | Outpatient (RCR) | payer MEDICARE, SELFPAY ==
--- NOTE | 2021-12-21 15:37 | MHC.PT.EP ---
[facility] [place] [facility] [place] [facility] [place] [facility] [address] [phone] F: [phone] F: [phone] F: [phone] F: [phone] Physical Therapy Plan of Care Date of Evaluation: Date of Surgery: Diagnosis: R knee pain. Assessment: Pt is a 76 y/o female referred to PT for eval and treat of R knee pain resulting in decreased tolerance for negotiating stairs, and walking and standing for duration as well as performing squatting and recreational activities secondary to R knee genu valgum deformity, decreased R knee strength, decreased R knee flexion and extension compared to her opposite knee, decreased hip strength and pain. Pt is deemed an appropriate candidate to receive skilled PT in order to address her physical limitations to improve her functional ability. Frequency and Duration: The patient will be seen 2 x / wk s x 5 wks . Short Term Goals: initiate HEP. Improve baseline pain to < 4/10; initial: 6/10. Urologic Surgeon Goals: I with HEP. Pt will report no difficulty walking 2 blocks. Pt will be able to negotiate 1 fl of stairs with manages Sx w/o compensation. Improve R knee extension MMT by at least 1/2 MMT grade. Treatment Plan: Modalities to reduce pain, spasms and effusion. Manual therapy to restore motion and function. Therapeutic exercise to improve strength and flexibility. Neuromuscular re-education for posture and balance. Therapeutic activities to return to functional activities of daily living. Electronically signed by: Barrington Ellison PT. Please sign and return to therapist. Thank you for your referral.
== END 2022-01-25 16:30 | disposition home or self-care (01) ==
LOC: HO.PTCHIC 14:00
PROVIDERS: PCP Internal Medicine; Visit Provider Internal Medicine
DX: M25.561 Pain in right knee (principal)
CPT/HCPCS: 97110; 97112; 97161; 97530

== ENCOUNTER 2022-02-09 15:19 | Outpatient (REF) | payer MEDICARE, SELFPAY ==
[2022-02-09 16:52] LABS: MANUAL DIFF FLAG NO
[2022-02-09 16:59] LABS: Basophils Percent Auto 0.7 % (0-2); Eosinophils Absolute Auto 0.2 X10*3/uL (0.0-0.4); Eosinophils Percent Auto 3.4 % (0-4); Hematocrit 40.2 % (37.0-47.0); Hemoglobin 13.7 g/dl (12.0-16.0); Imm Gran Abs Auto 0.02 X10*3/uL (0.00-0.03); Imm Gran Pct Auto 0.4 % (0.0-0.4); Lymphocytes Absolute Auto 1.4 X10*3/uL (1.2-4.9); Lymphocytes Percent Auto 24.5 % (20-40); Mean Corpuscular HGB Conc 34.1 g/dl (31.0-35.0); Mean Corpuscular Hemoglobin 29.9 pg (27.0-33.0); Mean Corpuscular Volume 87.8 fL (80.0-98.0); Mean Platelet Volume 9.7 fL (9.4-12.3); Monocytes Absolute Auto 0.5 X10*3/uL (0.1-1.2); Monocytes Percent Auto 8.2 % (2-11); Neutrophils Absolute Auto 3.5 x10*3/uL (2.0-8.3); Neutrophils Percent Auto 62.8 % (45-73); Platelet Count 269 X10*3/uL (160-400); Red Blood Count 4.58 X10*6/uL (4.20-5.50); Red Cell Distribution Width 13.6 % (11.0-16.0); White Blood Count 5.6 X10*3/uL (4.8-10.8)
[2022-02-09 17:33] LABS: Alanine Aminotransferase 29 U/L (0-31); Albumin Level 4.2 g/dL (3.5-5.0); Alkaline Phosphatase 75 U/L (39-117); Anion Gap 15 (12-20); Aspartate Amino Transferase 28 U/L (5-31); Bilirubin Total 0.3 mg/dL (0.0-1.0); Blood Urea Nitrogen 11 mg/dL (9-16); Carbon Dioxide 28 mmol/L (22-29); Chloride 103 mmol/L (96-108); Estimated Glomerular Filt Rate > 60; Glucose Random 115 mg/dL (60-115); Iron 55 mcg/dL (30-160); Percent Iron Saturation 16 % (15-50); Sodium 141 mmol/L (135-145); Total Iron Binding Capacity 335 mcg/dL (228-428); Unsaturated Iron Binding 280 ug/dL
[2022-02-09 17:53] LABS: Ferritin 30 ng/mL (10-250); Thyroid Stimulating Hormone 1.48 uIU/mL (0.32-4.0)
== END 2022-02-09 15:20 | disposition home or self-care (01) ==
LOC: HO.HMGCLDS 15:19
PROVIDERS: PCP Internal Medicine; Visit Provider Internal Medicine
DX: K51.90 Ulcerative colitis, unspecified, without complications (principal); D50.0 Iron deficiency anemia secondary to blood loss (chronic); F41.9 Anxiety disorder, unspecified; I87.2 Venous insufficiency (chronic) (peripheral)
CPT/HCPCS: 36415; 80053; 82728; 83540; 84443; 85025

== ENCOUNTER → 2022-04-03 14:23 | Outpatient (BNVA) | payer MEDICARE, SELFPAY | PROVIDERS: PCP Internal Medicine; Referring Provider Internal Medicine; Visit Provider Internal Medicine Cardiovascular Disease | DX: I10 Essential (primary) hypertension (principal); R07.9 Chest pain, unspecified; E78.5 Hyperlipidemia, unspecified | CPT/HCPCS: 93005; 99212 ==

== ENCOUNTER 2022-04-06 08:28 | Outpatient (REF) | payer MEDICARE, SELFPAY ==
[2022-04-06 09:56] LABS: Cholesterol 240 mg/dL; HDL Cholesterol 60 mg/dL; LDL Cholesterol Calculated 168 mg/dl; Triglycerides 63 mg/dL
== END 2022-04-06 08:29 | disposition home or self-care (01) ==
LOC: HO.LAB 08:28
PROVIDERS: PCP Internal Medicine; Visit Provider Internal Medicine Cardiovascular Disease
DX: E78.5 Hyperlipidemia, unspecified (principal)
CPT/HCPCS: 36415; 80061

== ENCOUNTER 2022-10-17 15:51 | Outpatient (REF) | payer MEDICARE, SELFPAY ==
[2022-10-17 16:09] LABS: MANUAL DIFF FLAG NO
[2022-10-17 16:15] LABS: Basophils Percent Auto 0.3 % (0-2); Eosinophils Percent Auto 0.8 % (0-4); Hemoglobin 13.3 g/dl (12.0-16.0); Imm Gran Abs Auto 0.01 X10*3/uL (0.00-0.03); Imm Gran Pct Auto 0.3 % (0.0-0.4); Lymphocytes Absolute Auto 1.1 X10*3/uL (1.2-4.9); Lymphocytes Percent Auto 30.4 % (20-40); Mean Corpuscular HGB Conc 32.4 g/dl (31.0-35.0); Mean Corpuscular Hemoglobin 28.2 pg (27.0-33.0); Mean Platelet Volume 9.1 fL (9.4-12.3); Monocytes Absolute Auto 0.3 X10*3/uL (0.1-1.2); Monocytes Percent Auto 9.5 % (2-11); Neutrophils Absolute Auto 2.1 x10*3/uL (2.0-8.3); Neutrophils Percent Auto 58.7 % (45-73); Platelet Count 211 X10*3/uL (160-400); Red Blood Count 4.71 X10*6/uL (4.20-5.50); Red Cell Distribution Width 13.7 % (11.0-16.0); White Blood Count 3.6 X10*3/uL (4.8-10.8)
[2022-10-17 16:55] LABS: Alanine Aminotransferase 25 U/L (0-31); Albumin Level 4.1 g/dL (3.5-5.0); Alkaline Phosphatase 89 U/L (39-117); Aspartate Amino Transferase 27 U/L (5-31); Bilirubin Direct 0.1 mg/dL (0.0-0.5); Bilirubin Total 0.3 mg/dL (0.0-1.0); C Reactive Protein 0.34 mg/dL (< or = 0.50); Iron 24 mcg/dL (30-160); Percent Iron Saturation 8 % (15-50); Total Iron Binding Capacity 295 mcg/dL (228-428); Total Protein 7.2 g/dL (6.5-8.0); Unsaturated Iron Binding 271 ug/dL
[2022-10-17 16:57] LABS: Erythrocyte Sedimentation Rate 13 MM/HR (0-20)
[2022-10-17 17:00] LABS: Ferritin 31 ng/mL (10-250); Thyroid Stimulating Hormone 2.05 uIU/mL (0.32-4.0)
[2022-10-17 17:15] LABS: Vitamin B12 1770 pg/mL (200-900)
== END 2022-10-17 15:52 | disposition home or self-care (01) ==
LOC: HO.LAB 15:51
PROVIDERS: PCP Internal Medicine; Visit Provider Internal Medicine
DX: R10.13 Epigastric pain (principal); R53.83 Other fatigue; R63.4 Abnormal weight loss
CPT/HCPCS: 36415; 80076; 82607; 82728; 83540; 84436; 84443; 85025; 85652; 86140

== ENCOUNTER 2022-10-27 14:42 | Outpatient (REF) | payer MEDICARE, SELFPAY ==
[2022-10-27 17:54] LABS: Appearance Urine Clear; Color Urine Yellow; Glucose Urine UA Negative (Negative); Leukocyte Esterase Urine Trace (Negative); Nitrite Urine Negative (Negative); PH 6.5 (5.0-9.0); Specific Gravity - Urine 1.015 (1.005-1.025); UMIC TRIGGER UA YES; Urine Blood Trace (Negative); Urine Ketones Negative (Negative); Urine Protein Negative (Neg-Trace)
[2022-10-27 18:00] LABS: Bacteria Urine Trace (None Seen); Hyaline Casts Urine 0-2 /LPF (0-2); Squamous Epithelial Cell Urine 0-2 /HPF (0-2)
== END 2022-10-27 14:43 | disposition home or self-care (01) ==
LOC: HO.HMGCLDS 14:42
PROVIDERS: PCP Internal Medicine; Visit Provider Internal Medicine
DX: R82.90 Unspecified abnormal findings in urine (principal)
CPT/HCPCS: 81001; 87086; 87088; 87186

== ENCOUNTER 2023-01-05 08:09 | Day surgery (SDC) | payer MEDICARE, SELFPAY ==
--- NOTE | 2023-01-04 11:52 | HO.ANESPROP2 ---
Documented by User: Alejandrina Murguia NP 01/04/23 11:53 HPI - Anesthesia Eval Consult details Narrative: 77yo F for Upper Endoscopy Pseudocholinesterase deficiency PMFSH Active Problems Active Problems: All Active Problems (Updated 01/04/23 @ 08:08 by Taina Arroyo RN) Hyperlipidemia (Acute) Colitis (Acute) Chest pain (Acute) Hypertension (Acute) Past Medical History Medical History (Updated 01/05/23 @ 08:33 by Taina Arroyo RN) Osteoarthritis IBD (inflammatory bowel disease) Crohn's colitis Pseudocholinesterase deficiency Ulcerative colitis Hypothyroidism Hypercholesteremia Family History Family History Father Lung disease Mother Bone disease Diverticular disease Family/Other Thyroid condition Stomach cancer Surgical History Surgical History Hx of colonoscopy History of esophagogastroduodenoscopy (EGD) Hx of oral surgery Hx of partial thyroidectomy History of tonsillectomy History of Problems with Anesthesia: Yes (Pseudocholinesterase Deficiency) Social History Social History Alcohol intake: never Patient Tobacco Use Status: Never used Tobacco Advance Directives: No Advance Directives Information Provided: Yes Meds Allergies Allergy/AdvReac Type Severity Reaction Status Date / Time penicillin Allergy Severe Hives Uncoded 04/03/22 14:27 succinylcholine Allergy Severe pseudocholinesterase Uncoded 04/03/22 14:27 deficiency Home Medications Medication Instructions Recorded Confirmed Last Taken Type cholecalciferol (vitamin D3) 25 25 mcg PO DAILY 03/24/20 04/03/22 Unknown History mcg (1,000 unit) capsule (Vitamin D3) multivitamin 1 tab PO DAILY 03/24/20 04/03/22 Unknown History ferrous sulfate 325 mg (65 mg 325 mg PO BID 01/04/23 01/04/23 Unknown History iron) tablet Exam Exam Date and Time: January 04, 2023 1152 Pertinent Lab Results Pertinent Lab Results: Laboratory Tests 10/17/22 16:06 WBC 3.6 L Hgb 13.3 Hct 41.0 Plt Count 211 Assessment and Plan Assessment Anesthesia Assessment: Chart Reviewed Final Anesthetic Review History of Problems with Anesthesia: Yes (Pseudocholinesterase Deficiency) Documented by User: Mary Prescott MD 01/05/23 08:34 [facility] Past Medical History Medical History (Updated 01/05/23 @ 08:33 by Taina Arroyo RN) Osteoarthritis IBD (inflammatory bowel disease) Crohn's colitis Pseudocholinesterase deficiency Ulcerative colitis Hypothyroidism Hypercholesteremia Family History Family History Father Lung disease Mother Bone disease Diverticular disease Family/Other Thyroid condition Stomach cancer Family history of problems with anesthesia: No Surgical History Surgical History Hx of colonoscopy History of esophagogastroduodenoscopy (EGD) Hx of oral surgery Hx of partial thyroidectomy History of tonsillectomy Social History Social History Alcohol intake: never Patient Tobacco Use Status: Never used Tobacco Advance Directives: No Advance Directives Information Provided: Yes Meds Allergies Allergy/AdvReac Type Severity Reaction Status Date / Time penicillin Allergy Severe Hives Uncoded 04/03/22 14:27 succinylcholine Allergy Severe pseudocholinesterase Uncoded 04/03/22 14:27 deficiency Home Medications Medication Instructions Recorded Confirmed Last Taken Type cholecalciferol (vitamin D3) 25 25 mcg PO DAILY 03/24/20 04/03/22 Unknown History mcg (1,000 unit) capsule (Vitamin D3) multivitamin 1 tab PO DAILY 03/24/20 04/03/22 Unknown History ferrous sulfate 325 mg (65 mg 325 mg PO BID 01/04/23 01/04/23 Unknown History iron) tablet Exam Airway Mallampati Class: II TM Dist: >3cm Neck ROM: Full Assessment and Plan Assessment Anesthesia Assessment: Anesthesia Plan Discussed Final Anesthetic Review Family History of Problems with Anesthesia: No NPO: Yes ASA Class: III Final Preanesthetic Review: No Changes in Pt Med Stat, Meds/Allgs Chart Reviewed, Consent Obtained/Reviewed and Anes Risks/Benef Reviewed Patient Risk: Intermediate Procedure Risk: Low Anesthetic Plan Anesthetic Plan: MAC: Disposition: Standard PACU
[2023-01-05 08:38] VITALS: BMI 20.3
[2023-01-05 08:48] VITALS: BP 129/66; PULSE 76; RESP 15; TEMP 37.1; O2SAT 97
[2023-01-05] MEDS: Lactated Ringers 1,000 ML 100 ML IVCONT (08:49)
[2023-01-05 09:14] VITALS: BP 104/57; PULSE 66; RESP 18; TEMP 36.6; O2SAT 100
--- NOTE | 2023-01-05 09:19 | P.BOP_ITS ---
Brief Operative Note Date of Service: 01/05/23 Pre-op diagnosis: Abdominal pain Post-op diagnosis: other (Hiatal hernia, Minimal gastritis) Procedure: EGD with biopsies Surgeon: Hans Tyler Anesthesia: MAC Was an Slip Cover Maker used for this Procedure?: No Estimated blood loss (mL): 2.0 Pathology: other (A. Gastric antrum B. EG Junction at 36cm) Condition: stable Disposition: PACU
[2023-01-05 09:28] VITALS: BP 106/60; PULSE 72; RESP 18; TEMP 36.6; O2SAT 95
--- NOTE | 2023-01-05 09:31 | OP_ITS ---
DATE OF SERVICE: 01/05/2023 SURGEON: Hans Tyler MD INDICATIONS: The patient presents for evaluation of abdominal pain and previous history of gastric ulcer. Full consent was obtained from her for this, including risks of bleeding and perforation. PREOPERATIVE DIAGNOSIS: POSTOPERATIVE DIAGNOSIS: PROCEDURE PERFORMED: Esophagogastroduodenoscopy with biopsy. ESTIMATED BLOOD LOSS: COMPLICATIONS: ANESTHESIA: Monitored anesthesia care. ASSISTANTS: SPECIMENS: PREOPERATIVE DIAGNOSES: Abdominal pain and previous history of gastric ulcer. POSTOPERATIVE DIAGNOSES: Abdominal pain and previous history of gastric ulcer, hiatal hernia, rule out gastritis and Bentley's esophagus. DESCRIPTION OF PROCEDURE: The patient was placed in the left lateral decubitus position. The Olympus video gastroscope was passed in the posterior oropharynx and upper esophagus under direct vision. The scope was passed slowly to the distal esophagus. The gastroesophageal junction appeared at 36 cm. There was some slight irregularity, consistent with reflux and possibly small, less than 1 cm areas of Bentley's mucosa. There was no esophagitis nor any lesions. The scope entered the stomach. There was a small hiatal hernia. The scope was advanced to the pylorus and the duodenum was cannulated to the descending portion. The duodenum including the bulb appeared normal without mass or ulceration. The scope was withdrawn back to the stomach. The gastric antrum and body had some mild areas of erythema, but no ulceration, mass, nor any other lesions. There was good peristalsis. Biopsies were obtained from the gastric antrum. The scope was retroflexed visualizing the proximal stomach carefully, which appeared normal, without any sign of mass or ulceration. The scope was straightened and withdrawn back in the esophagus. Biopsies were obtained at the EG junction. Proximal to this the esophageal mucosa appeared normal. The scope was withdrawn from the patient. She tolerated the procedure well and was returned to the recovery area in stable condition. IMPRESSION: 1. Small hiatal hernia, rule out Bentley's esophagus. 2. Minimal gastritis, rule out Helicobacter pylori. PLAN: The results of the biopsies will be checked. At this point, she reports that her abdominal pain has resolved and she is not using any particular medication for that. As such, she will be observed. She was advised to avoid aspirin and NSAIDs for least 1 week, but to try to avoid them long-term, given the underlying history of inflammatory bowel disease. She will see me in the Spring for a followup visit. She was advised to call sooner as needed. MD MIS Hurst/OTTO / [phone] MTDD
== END 2023-01-05 09:45 | disposition home or self-care (01) ==
PROVIDERS: PCP Internal Medicine; Visit Provider Internal Medicine
PROC: 0DJ08ZZ Inspection of Upper Intestinal Tract, Via Natural or Artificial Opening Endoscopic (ICD-10-PCS; CPT 43235; principal; 2023-01-05 08:30)
DX: R10.13 Epigastric pain (principal); R63.4 Abnormal weight loss; Z87.11 Personal history of peptic ulcer disease; K44.9 Diaphragmatic hernia without obstruction or gangrene; K29.60 Other gastritis without bleeding; R53.83 Other fatigue; K58.9 Irritable bowel syndrome, unspecified; Z79.899 Other long term (current) drug therapy
CPT/HCPCS: 43239; 88305; 88342

== ENCOUNTER 2023-04-04 13:28 | Outpatient (AMB) | payer MEDICARE, SELFPAY ==
[2023-04-04 13:31] VITALS: BP 110/50; BMI 19.5
--- NOTE | 2023-04-04 13:31 | MHC.OFFVIS ---
Intake Vital Signs 04/04/23 13:31 Height 5 ft 2 in Weight 106 lb 11.26 oz BMI 19.5 BP 110/50 L Blood Pressure Location Lt brachial Position Sitting Intake Visit Reasons: 1 yr f/up Intake Note: 1 yr f/up patient its fine. 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 She said she has had low blood pressure all her life. No syncope in the past. Off and on she has felt dizzy specially in the traylor. Recently she started noticing exertional chest discomfort specially when she goes up stairs. This has been happening for few weeks now. She thinks this is due to low blood pressure. She has background of colitis, hyperlipidemia and hypothyroidism. She has been using atorvastatin 10 mg once a day. She has no bleeding issues. She denies dyspnea with exertion. ECG showing sinus rhythm, normal ECG, QTC 406 milliseconds. She was referred for echocardiography and stress test. She did not have any ischemic EKG changes or wall motion abnormality on stress echocardiography. Echocardiography showed normal biventricular function with mild MR. 04/04/2023: She returns for follow-up. She has been doing well. She is getting some discomfort in the chest at nighttime. During the day she does not get any symptoms. She is denying any acid reflux symptoms. She was previously started on atorvastatin for an LDL cholesterol of 168. Her HDL was 16 triglycerides were 63 total cholesterol was 240. She is saying that she had some GI issues with atorvastatin a stop date but will be starting it again. She has known history of ulcerative colitis. She is concerned about her varicose veins on the left leg. She is getting pain and fullness in the left leg along with itching. [facility] Medical History (Updated 04/04/23 @ 13:53 by Abilio Duggan MD) Osteoarthritis IBD (inflammatory bowel disease) Crohn's colitis Pseudocholinesterase deficiency Ulcerative colitis Hypothyroidism Hypercholesteremia Surgical History Hx of colonoscopy History of esophagogastroduodenoscopy (EGD) Hx of oral surgery Hx of partial thyroidectomy History of tonsillectomy Family History Father Lung disease Mother Bone disease Diverticular disease Family/Other Thyroid condition Stomach cancer Social History Alcohol intake: never Patient Tobacco Use Status: Never used Tobacco Review of Systems Const Reports chills, Reports fatigue, Reports fever(s), Reports frequent falls, Reports weakness, Reports weight gain and Reports weight loss ENT Reports dizziness Card Reports chest pain, Reports leg edema, Reports lightheadedness, Reports palpitations, Reports dyspnea and Reports dyspnea on exertion Resp Reports cough, Reports dyspnea and Reports dyspnea on exertion GI Reports hematochezia Musc Reports abnormal gait, Reports muscle weakness, Reports numbness, Reports radiating pain into limb and Reports tingling Neuro Reports abnormal gait, Reports dizziness, Reports frequent falls, Reports numbness, Reports tingling and Reports weakness Endo Reports fatigue and Reports palpitations Physical Exam Vital Signs: Last Vital Signs BP 110/50 L 04/04/23 13:31 BMI result Body Mass Index 19.5 GENERAL APPEARANCE: in no acute distress, thin. NECK/THYROID: no carotid bruit, no jugular venous distention. SKIN: no suspicious lesions, warm and dry. HEART: no murmurs, regular rate and rhythm, S1, S2 normal. LUNGS: clear to auscultation bilaterally. ABDOMEN: normal, bowel sounds present, soft, nontender, nondistended. EXTREMITIES: Varicose veins left leg. PERIPHERAL PULSES: equal. NEUROLOGIC: nonfocal, alert and oriented. Office Procedures EKG Details: Sinus rhythm 76 beats per minute, normal axis, normal ECG, QTC 414 milliseconds. [id number], Complete Assessment & Plan Assessment & Plan (1) Hypertension: Code(s): I10 - Essential (primary) hypertension (2) Chest pain: Code(s): R07.9 - Chest pain, unspecified (3) Hyperlipidemia: Code(s): E78.5 - Hyperlipidemia, unspecified (4) Varicose vein of leg: Code(s): I83.90 - Asymptomatic varicose veins of unspecified lower extremity Plan Pleasant 77 year female who is here for follow-up. Blood pressure is normal. Complaining of non anginal chest pains. I have advised her that if she gets discomfort during activity then we will consider stress testing. Starting her on atorvastatin 20 mg again. She will need repeat fasting lipid panel in 2-3 months. Referring her to vascular for varicose veins. Thank you for allowing me to participate in the care of your patient. Please feel free to contact me if you have any questions. Orders: Referrals Vascular Surgery Referral I83.90 - Asymptomatic varicose veins of unspecified lower extremity Medications: New atorvastatin 20 mg PO BEDTIME 60 tabs 3RF E78.5 - Hyperlipidemia, unspecified Coding Level of Care Code Est Pt Level 4 (57384) Diagnoses Hypertension I10 Chest pain R07.9 Hyperlipidemia E78.5 Varicose vein of leg I83.90 CPT Codes EKG - CPT: 85027-[id number], Complete ([id number])
== END 2023-04-04 14:06 | disposition home or self-care (01) ==
PROVIDERS: Visit Provider Internal Medicine Cardiovascular Disease
DX: I10 Essential (primary) hypertension (principal); R07.9 Chest pain, unspecified; E78.5 Hyperlipidemia, unspecified; I83.90 Asymptomatic varicose veins of unspecified lower extremity
CPT/HCPCS: 93010; 99214

== ENCOUNTER → 2023-04-04 13:28 | Outpatient (BNVA) | payer MEDICARE, SELFPAY | PROVIDERS: Visit Provider Internal Medicine Cardiovascular Disease | DX: I10 Essential (primary) hypertension (principal); R07.9 Chest pain, unspecified; E78.5 Hyperlipidemia, unspecified; I83.90 Asymptomatic varicose veins of unspecified lower extremity | CPT/HCPCS: 93005; 99212 ==

== ENCOUNTER 2023-05-17 14:40 | Outpatient (AMB) | payer MEDICARE, SELFPAY ==
[2023-05-17 14:49] VITALS: BMI 19.4
--- NOTE | 2023-05-17 14:49 | A.OFFVIS_ITS ---
Intake Vital Signs 05/17/23 14:49 Height 5 ft 2 in Weight 106 lb BMI 19.4 Intake Visit Reasons: DEVELOPMENT COORDINATOR VV Intake Note: DEVELOPMENT COORDINATOR/ referral for VV. Pt states mostly on her left LE, started about 1 yr ago w/ pain and itching. Pt states she has pain w/ nor without standing/ ambulation. Pt has been wearing compression socks and state that they do help a little bit. Accompanied by: Self / Same As Patient Allergies penicillin Allergy (Severe, Uncoded 05/17/23 14:53) Hives succinylcholine Allergy (Severe, Uncoded 05/17/23 14:53) pseudocholinesterase deficiency HPI DEVELOPMENT COORDINATOR VV HPI Details Pleasant 77-year-old female patient presents for painful varicose veins. Complaints include pain over varicosities, swelling of lower extremities, cramping, fatigue, and in particular itching of the left lower extremity. It has been affecting there daily activities including walking. It is noted more so in left leg. Patient denies any previous venous surgery or injections. Patient denies any history of DVT/ PE. Patient denies any history of phlebitis. Trial of compression includes - [id number] They now present for vascular evaluation regarding their varicose veins. [facility] Medical History Osteoarthritis IBD (inflammatory bowel disease) Crohn's colitis Pseudocholinesterase deficiency Ulcerative colitis Hypothyroidism Hypercholesteremia Surgical History Hx of colonoscopy History of esophagogastroduodenoscopy (EGD) Hx of oral surgery Hx of partial thyroidectomy History of tonsillectomy Family History Father Lung disease Mother Bone disease Diverticular disease Family/Other Thyroid condition Stomach cancer Social History Alcohol intake: never Patient Tobacco Use Status: Never used Tobacco Review of Systems Const Reports as per HPI ENT Reports no additional complaints Card Denies chest pain, Denies chest pain at rest and Denies chest pain with activity Resp Denies chest congestion and Denies cough GI Reports no additional complaints Musc Details: pain over varicosities, aching of lower extremities, swelling, cramping, heaviness and tiredness, itching Denies abnormal gait Skin/Breast Reports pruritus and Denies wounds Neuro Reports no additional complaints and Denies abnormal gait Psych Denies no additional complaints Physical Exam Vital Signs: BMI result Body Mass Index 19.4 Const General: cooperative, healthy appearing and comfortable Orientation/consciousness: oriented to person, oriented to place and oriented to time Neck Carotids: no bruits Chest Chest palpation & inspection: normal inspection of the chest and normal palpation of entire chest wall Resp Effort & Inspection: normal respiratory effort and able to speak in complete sentences Cardio Rate: regular rate Heart sounds: S1 normal heart sound present and S2 normal heart sound present Peripheral pulses: Peripheral pulses 2+ throughout GI Inspection: Yes normal to inspection Skin Other: +2 edema, large rope-like varicosities greater than 4 mm left calf CEAP Classification C4 - skin color changes Ep - Etiology Primary As - superficial veins P - reflux General skin exam: dry skin Neuro General: oriented to person, oriented to place and oriented to time Extrem Right lower extremity: full ROM, normal capillary refill and edema Left lower extremity: full ROM, normal capillary refill and edema Psych Mental Status: mental status grossly normal Assessment & Plan Assessment & Plan (1) Varicose veins of left lower extremity with inflammation: Code(s): I83.12 - Varicose veins of left lower extremity with inflammation Plan: In short, the patient has evidence of venous insufficiency. I have discussed the pathophysiology with the patient. In addition I have provided informational material regarding venous disease to the patient. We have discussed conservative measures including compression, elevation, and exercise. I have also provided a handout regarding appropriate use of compression stockings and where to purchase good compression stockings as well. I have taken the liberty of ordering venous insufficiency testing with the patient. They will follow up with me after testing. The patient had an opportunity to ask questions regarding the treatment plan. All questions were answered. Imaging studies, laboratory studies and physical exam results were discussed and reviewed in detail. No major barriers to understanding were identified. The patient expressed understanding and agreement with the above treatment plan. The patient is aware they should contact our office by phone for worsening of the current condition or the appearance of new symptoms. Thank you for allowing me to participate in the vascular care of this patient. If you have any questions or concerns regarding the treatment for the above condition please do not hesitate to contact me. The office telephone contact is [phone]. This note is constructed using voice recognition software. While every effort has been made to ensure accuracy, cigar patcher errors may have been included. Thank you for allowing me to participate in the care of your patient. Yours sincerely, Pete Ernandez MD, FACS, R.P.V.I. Orders: Orders US venous insuf bilat 1 Week I83.12 - Varicose veins of left lower extremity with inflammation Coding Level of Care Code New Pt Level 4 (62170) Diagnoses Varicose veins of left lower extremity with inflammation I83.12
== END 2023-05-17 16:01 | disposition home or self-care (01) ==
PROVIDERS: PCP Internal Medicine; Visit Provider Surgery Vascular Surgery
DX: I83.12 Varicose veins of left lower extremity with inflammation (principal)
CPT/HCPCS: 99203

== ENCOUNTER → 2023-05-17 14:40 | Outpatient (BNVA) | payer MEDICARE, SELFPAY | PROVIDERS: PCP Internal Medicine; Visit Provider Surgery Vascular Surgery | DX: I83.12 Varicose veins of left lower extremity with inflammation (principal) | CPT/HCPCS: 99202 ==

== ENCOUNTER 2023-06-01 08:39 | Outpatient (REF) | payer MEDICARE, SELFPAY ==
[2023-06-01 08:56] LABS: MANUAL DIFF FLAG NO
[2023-06-01 09:59] LABS: Basophils Percent Auto 0.5 % (0-2); Eosinophils Absolute Auto 0.1 X10*3/uL (0.0-0.4); Eosinophils Percent Auto 2.5 % (0-4); Hematocrit 42.4 % (37.0-47.0); Hemoglobin 14.2 g/dl (12.0-16.0); Imm Gran Abs Auto 0.03 X10*3/uL (0.00-0.03); Imm Gran Pct Auto 0.5 % (0.0-0.4); Lymphocytes Percent Auto 17.7 % (20-40); Mean Corpuscular HGB Conc 33.5 g/dl (31.0-35.0); Mean Corpuscular Hemoglobin 29.4 pg (27.0-33.0); Mean Corpuscular Volume 87.8 fL (80.0-98.0); Mean Platelet Volume 9.5 fL (9.4-12.3); Monocytes Absolute Auto 0.5 X10*3/uL (0.1-1.2); Monocytes Percent Auto 8.9 % (2-11); Neutrophils Percent Auto 69.9 % (45-73); Platelet Count 266 X10*3/uL (160-400); Red Blood Count 4.83 X10*6/uL (4.20-5.50); White Blood Count 5.7 X10*3/uL (4.8-10.8)
[2023-06-01 10:51] LABS: Alanine Aminotransferase 24 U/L (0-31); Alkaline Phosphatase 94 U/L (39-117); Anion Gap 13 (12-20); Aspartate Amino Transferase 26 U/L (5-31); Bilirubin Total 0.6 mg/dL (0.0-1.0); Blood Urea Nitrogen 20 mg/dL (9-16); Calcium 9.3 mg/dL (8.4-10.2); Carbon Dioxide 28 mmol/L (22-29); Chloride 103 mmol/L (96-108); Cholesterol 225 mg/dL (<200); Estimated Glomerular Filt Rate > 60; Glucose Fasting 92 mg/dL (60-99); HDL Cholesterol 69 mg/dL (>40); Iron 144 mcg/dL (30-160); LDL Cholesterol Calculated 145 mg/dL (<100); Percent Iron Saturation 44 % (15-50); Potassium 4.5 mmol/L (3.3-5.1); Sodium 139 mmol/L (135-145); Total Iron Binding Capacity 329 mcg/dL (228-428); Total Protein 7.4 g/dL (6.5-8.0); Triglycerides 59 mg/dL (<150); Unsaturated Iron Binding 185 ug/dL
[2023-06-01 11:11] LABS: Ferritin 21 ng/mL (10-250); Thyroid Stimulating Hormone 3.49 uIU/mL (0.32-4.0); Vitamin D 25-OH Total 52.9 ng/mL (>30)
[2023-06-01 11:14] LABS: Vitamin B12 778 pg/mL (200-900)
[2023-06-01 12:07] LABS: Folate 13.2 ng/mL (> or = 4.0)
== END 2023-06-01 08:40 | disposition home or self-care (01) ==
LOC: HO.LAB 08:39
PROVIDERS: PCP Internal Medicine; Visit Provider Internal Medicine
DX: K51.90 Ulcerative colitis, unspecified, without complications (principal); D50.0 Iron deficiency anemia secondary to blood loss (chronic); E78.00 Pure hypercholesterolemia, unspecified; F41.9 Anxiety disorder, unspecified; M81.0 Age-related osteoporosis without current pathological fracture
CPT/HCPCS: 36415; 80053; 80061; 82306; 82607; 82728; 82746; 83540; 84443; 85025

== ENCOUNTER 2023-07-03 10:23 | Outpatient (REF) | payer MEDICARE, SELFPAY ==
--- NOTE | ~2023-07-03 | US_ITS ---
EXAMINATION: US LOWER EXTREMITY VENOUS (REFLUX EXAM), BILATERAL CLINICAL INFORMATION: Chronic venous insufficiency with lower extremity varicose veins and inflammation COMPARISON: None. TECHNIQUE: Color flow triplex imaging and compression Doppler was performed to evaluate both the deep and the superficial systems bilaterally. To evaluate the superficial system, the examination was performed in the upright position. Color-flow Doppler ultrasound and compression ultrasound were utilized. In addition, maneuvers were utilized to demonstrate reflux. FINDINGS: 1. DEEP VENOUS ULTRASOUND OF THE RIGHT LOWER EXTREMITY: Common Femoral Vein: Compressible, normal respiratory variation and augmented flow. Femoral Vein: Compressible, normal color flow and augmentation. Popliteal Vein: Compressible, normal augmentation. Deep Reflux: There is no evidence of reflux in the deep system in either the common femoral vein, superficial femoral or the popliteal vein. Complex Singh's cyst measuring 3.8 x 1.7 x 2.3 cm 2. SUPERFICIAL ULTRASOUND WITH DOPPLER OF RIGHT LOWER EXTREMITY: GREAT SAPHENOUS VEIN: Saphenofemoral Junction: 0.6 cm; Reflux: 0 ms Proximal Thigh: 0.3 cm; Reflux: 1664 ms Mid Thigh: 0.3 cm; Reflux: 2864 ms Distal Thigh: 0.3 cm; Reflux: 2348 ms At Knee: 0.4 cm; Reflux: 2336 ms Proximal Calf: 0.4 cm; Reflux: 2284 ms Mid Calf: 0.2 cm; Reflux: 2596 ms Distal Calf: 0.2 cm; Reflux: 2500 ms DUPLICATED MEDIAL GREAT SAPHENOUS VEIN: Diameter: 0.1 cm Reflux: None DUPLICATED LATERAL GREAT SAPHENOUS VEIN: Diameter: None imaged Reflux: NA SMALL SAPHENOUS VEIN: Saphenopopliteal Junction: 0.2 cm; Reflux: 0 ms Proximal: 0.1 cm; Reflux: 0 ms Distal: 0.2 cm; Reflux: 0 ms VEIN OF GIACOMINI: Size: NA Reflux: NA PERFORATORS: Location: None significant Size: NA Reflux: NA VARICOSITIES: Location: None significant. Size: NA Reflux: NA 3. DEEP VENOUS ULTRASOUND OF THE LEFT LOWER EXTREMITY: Common Femoral Vein: Compressible, normal respiratory variation and augmented flow. Femoral Vein: Compressible, normal color flow and augmentation. Popliteal Vein: Compressible, normal augmentation. Deep Reflux: There is no evidence of reflux in the deep system in either the common femoral vein, superficial femoral or the popliteal vein. Simple Singh's cyst measuring 2.2 x 2.9 x 1.1 cm 4. SUPERFICIAL ULTRASOUND WITH DOPPLER OF LEFT LOWER EXTREMITY: GREAT SAPHENOUS VEIN: Saphenofemoral Junction: 0.8 cm; Reflux: 0 ms Proximal Thigh: 0.7 cm; Reflux: 2000 ms Mid Thigh: 0.5 cm; Reflux: 2196 ms Distal Thigh: 1.0 cm; Reflux: 2620 ms At Knee: 0.5 cm; Reflux: 2136 ms Proximal Calf: 0.6 cm; Reflux: 2748 ms Mid Calf: 0.5 cm; Reflux: 2776 ms Distal Calf: 0.2 cm; Reflux: 0 ms DUPLICATED MEDIAL GREAT SAPHENOUS VEIN: Diameter: 0.2 cm Reflux: None DUPLICATED LATERAL GREAT SAPHENOUS VEIN: Diameter: None imaged. Reflux: NA SMALL SAPHENOUS VEIN: Saphenopopliteal Junction: 0.1 cm; Reflux: 0 ms Proximal: 0.1 cm; Reflux: 0 ms Distal: 0.2 cm; Reflux: 0 ms VEIN OF GIACOMINI: Size: NA Reflux: NA PERFORATORS: Location: Proximal calf Size: 0.3 cm Reflux: None VARICOSITIES: Location: Mid calf off the great saphenous vein Size: 0.4 cm Reflux: 2224 ms US/US venous insuf bilat IMPRESSION: Right: Severe reflux throughout the right great saphenous vein Left: Severe reflux throughout the left great saphenous vein. Dilated varicose vein at the mid calf great saphenous vein with severe reflux
== END 2023-07-03 10:24 | disposition home or self-care (01) ==
LOC: HO.US 10:23
PROVIDERS: PCP Internal Medicine; Visit Provider Surgery Vascular Surgery
DX: I83.12 Varicose veins of left lower extremity with inflammation (principal)
CPT/HCPCS: 93970

== ENCOUNTER 2023-07-31 10:37 | Outpatient (AMB) | payer MEDICARE, SELFPAY ==
--- NOTE | 2023-07-31 10:39 | MHC.OFFVIS ---
Intake Vital Signs 07/31/23 10:40 Height 5 ft 2 in Weight 106 lb BMI 19.4 Intake Visit Reasons: follow up 07/03/2023 Intake Note: Follow up 07/03/23 for bilateral LE VV. Pt states Left LE is worse than the Right LE. Pt states pain started over 1 yr ago w/ pain, compression socks do help a little. Accompanied by: Self / Same As Patient Allergies penicillin Allergy (Severe, Uncoded 07/31/23 10:47) Hives succinylcholine Allergy (Severe, Uncoded 07/31/23 10:47) pseudocholinesterase deficiency HPI follow up 07/03/2023 HPI Details Very pleasant 78-year-old female presents for follow-up regarding venous insufficiency she continues to have swelling and discomfort left more so than right. She notes that it has been affecting her daily walking and occasionally even causes cramping. She now presents for follow-up with venous insufficiency testing. Of note she has been using compression stockings with minimal relief. [facility] Medical History Osteoarthritis IBD (inflammatory bowel disease) Crohn's colitis Pseudocholinesterase deficiency Ulcerative colitis Hypothyroidism Hypercholesteremia Surgical History Hx of colonoscopy History of esophagogastroduodenoscopy (EGD) Hx of oral surgery Hx of partial thyroidectomy History of tonsillectomy Family History Father Lung disease Mother Bone disease Diverticular disease Family/Other Thyroid condition Stomach cancer Social History Alcohol intake: never Patient Tobacco Use Status: Never used Tobacco Review of Systems Const Reports as per HPI ENT Reports no additional complaints Card Denies chest pain, Denies chest pain at rest and Denies chest pain with activity Resp Denies chest congestion and Denies cough GI Reports no additional complaints Musc Details: pain over varicosities, aching of lower extremities, swelling, cramping, heaviness and tiredness, itching Denies abnormal gait Skin/Breast Reports pruritus and Denies wounds Neuro Reports no additional complaints and Denies abnormal gait Psych Denies no additional complaints Physical Exam Vital Signs: BMI result Body Mass Index 19.4 Const General: cooperative, healthy appearing and comfortable Orientation/consciousness: oriented to person, oriented to place and oriented to time Neck Carotids: no bruits Chest Chest palpation & inspection: normal inspection of the chest and normal palpation of entire chest wall Resp Effort & Inspection: normal respiratory effort and able to speak in complete sentences Cardio Rate: regular rate Heart sounds: S1 normal heart sound present and S2 normal heart sound present Peripheral pulses: Peripheral pulses 2+ throughout GI Inspection: Yes normal to inspection Skin Other: +2 edema, left greater than right CEAP Classification C4 - skin color changes Ep - Etiology Primary As - superficial veins P - reflux General skin exam: dry skin Neuro General: oriented to person, oriented to place and oriented to time Extrem Right lower extremity: full ROM, normal capillary refill and edema Left lower extremity: full ROM, normal capillary refill and edema Psych Mental Status: mental status grossly normal Results Reviewed Results Reviewed: Brief summary of venous insufficiency testing is as follows: right great saphenous vein: Positive right small saphenous vein: negative right accessory vein: none present left great saphenous vein: Positive left small saphenous vein: negative left accessory vein: none present Please note there is no evidence of any venous aneurysms or significant tortuosity Assessment & Plan Assessment & Plan (1) Varicose veins of left lower extremity with inflammation: Code(s): I83.12 - Varicose veins of left lower extremity with inflammation Plan: This patient has varicose veins with inflammation. They continue to be a source of discomfort for the patient. The patient has tried conservative treatment with compression, leg elevation and exercise program for over 3 months time. They have been compliant with all treatment. This has provided minimal relief for the patient. I do not anticipate this course of treatment will alter the underlying etiology. The patient has been scheduled for lower extremity venous treatment inclusive of --- left great saphenous vein radiofrequency ablation. Risks, benefits, and complications of this procedure has been discussed in detail with the patient including but not limited to bleeding, infection, and the development of a DVT. The patient has demonstrated a clear understanding and has consented. We will schedule the patient as soon as possible. Thank you for allowing us to participate in this patient's care. If there are any questions or concerns please do not hesitate to contact us. Coding Level of Care Code Est Pt Level 4 (21882) Diagnoses Varicose veins of left lower extremity with inflammation I83.12
[2023-07-31 10:40] VITALS: BMI 19.4
== END 2023-07-31 11:10 | disposition home or self-care (01) ==
PROVIDERS: PCP Internal Medicine; Visit Provider Surgery Vascular Surgery
DX: I83.12 Varicose veins of left lower extremity with inflammation (principal)
CPT/HCPCS: 99214

== ENCOUNTER → 2023-07-31 10:37 | Outpatient (BNVA) | payer MEDICARE, SELFPAY | PROVIDERS: PCP Internal Medicine; Visit Provider Surgery Vascular Surgery | DX: I83.12 Varicose veins of left lower extremity with inflammation (principal) | CPT/HCPCS: 99212 ==

== ENCOUNTER 2023-09-14 08:27 | Outpatient (AMB) | payer MEDICARE, SELFPAY ==
[2023-09-14 08:44] VITALS: BMI 19.4
--- NOTE | 2023-09-14 08:44 | MHC.OFFVIS ---
Vital Signs 09/14/23 08:44 Height 5 ft 2 in Weight 106 lb BMI 19.4 Intake Visit Reasons: Left GSV RFA Allergies penicillin Allergy (Severe, Uncoded 09/14/23 08:44) Hives succinylcholine Allergy (Severe, Uncoded 09/14/23 08:44) pseudocholinesterase deficiency PFSH Medical History Osteoarthritis IBD (inflammatory bowel disease) Crohn's colitis Pseudocholinesterase deficiency Ulcerative colitis Hypothyroidism Hypercholesteremia Surgical History Hx of colonoscopy History of esophagogastroduodenoscopy (EGD) Hx of oral surgery Hx of partial thyroidectomy History of tonsillectomy Family History Father Lung disease Mother Bone disease Diverticular disease Family/Other Thyroid condition Stomach cancer Social History Alcohol intake: never Patient Tobacco Use Status: Never used Tobacco Physical Exam Vital Signs: BMI result Body Mass Index 19.4 Office Procedures Vascular Office Procedure Details Details: Diagnosis: Varicose veins with inflammation of left leg Procedure: Endovenous radiofrequency ablation of the left great saphenous vein(s) of the lower extremity with Venclose RF ablation Anesthesia: Local infiltration 5 cc, Tumescent 400 cc. Estimated Blood Loss: Minimal The patient was transferred to the procedure suite and the insufficient saphenous vein was mapped by ultrasound and diagrammed on the overlying skin. The depth and diameter of the vein(s) to be treated was documented. The varicose tributary veins and suitable access sites were identified and mapped as well. The patient was then positioned supine on the procedure table. The affected limb was prepped and draped in the usual sterile fashion. The RF catheter was placed on the sterile field, flushed and wiped down, prepared, and connected by a sterile cable. The patient was placed in a supine position and local anesthesia was instilled in the skin overlying the access site. A skin incision was made overlying the identified and mapped great saphenous vein entry site. The vein was accessed using ultrasound guidance and the Seldinger technique, a guide wire was introduced through the needle, which was then exchanged over the guide wire for a 6F sheath, which was secured in place. The guide wire was removed and the sheath was flushed. The RF catheter was placed into the vein through the sheath and preferentially, imaging was used to place the catheter tip just inferior to the superficial epigastric vein to preserve normal physiological flow in that vein. Additionally, it was confirmed by ultrasound guidance that the catheter tip was also placed a minimum of 1.5cm distal to the saphenofemoral junction. After the RF catheter position was verified by ultrasound, tumescent anesthesia was infiltrated, under ultrasound guidance, precisely into the perivenous compartment along the entire length of vein from the entry site to the saphenofemoral junction until a halo of fluid was noted around the vein. The patient was appropriately position. After RF catheter position was again confirmed with ultrasound imaging, and under direct external compression along the length of the heating element, RF energy was applied. The vein was segmentally ablated by heating a 10 cm segment and then indexing the catheter forward by 9.5 cm until the treatment length is completed. Device temperature was maintained at 120 plus or minus 5 degrees C with an initial power level of 4W/cm dropping to below 2W/cm for each treatment. Total vein length treated 40 cm Total cycles of RF 8. Repeat ultrasound of the saphenous vein was performed, confirming successful treatment. The catheter and sheath were withdrawn and hemostasis established with direct pressure. After assuring hemostasis, the skin incision over the saphenous vein was closed with a steristip and a compression wrap was applied from the level of the foot to the most proximal level of the thigh. Discharge instructions were given to the patient inclusive of follow-up ultrasound and recommended follow-up with us. 54449 - Endovenous RF, 1st Vein All charges added?: Procedure code (CPT) selection complete Assessment & Plan Assessment & Plan (1) Varicose veins of left lower extremity with inflammation: Comment: 09/14/2023 - left great saphenous vein radiofrequency ablation Code(s): I83.12 - Varicose veins of left lower extremity with inflammation Category: Medical Plan: See op note Coding Level of Care Code Procedure Only Diagnoses Varicose veins of left lower extremity with inflammation I83.12 CPT Codes Details - Vascular 1: 20753 - Endovenous RF, 1st Vein ([id number])
== END 2023-09-14 11:45 | disposition home or self-care (01) ==
PROVIDERS: PCP Internal Medicine; Visit Provider Surgery Vascular Surgery
DX: I83.12 Varicose veins of left lower extremity with inflammation (principal)
CPT/HCPCS: 36475

== ENCOUNTER → 2023-09-14 08:27 | Outpatient (BNVA) | payer MEDICARE, SELFPAY | PROVIDERS: PCP Internal Medicine; Visit Provider Surgery Vascular Surgery | DX: I83.12 Varicose veins of left lower extremity with inflammation (principal) | CPT/HCPCS: 36475 ==

== ENCOUNTER 2023-09-17 12:52 | Outpatient (REF) | payer MEDICARE, SELFPAY ==
--- NOTE | ~2023-09-17 | US_ITS ---
EXAMINATION: TRIPLEX SCANNING OF LEFT LOWER EXTREMITY; SUPERFICIAL ULTRASOUND WITH DOPPLER OF LEFT LOWER EXTREMITY CLINICAL INFORMATION: Status post RF ablation the left great saphenous vein. COMPARISON: Preprocedure studies. TECHNIQUE: Color flow triplex imaging and compression Doppler were performed as well as superficial ultrasound with Doppler. FINDINGS: TRIPLEX SCANNING OF LEFT LOWER EXTREMITY: Respiratory variation, normal compression and augmented flow are noted throughout the lower extremity. The visualized common femoral vein, femoral vein, profunda femoral vein, popliteal vein and the calf veins show no evidence of deep venous thrombosis. There is no evidence of Singh's cyst. SUPERFICIAL ULTRASOUND WITH DOPPLER OF LEFT LOWER EXTREMITY: The left great saphenous vein is occluded from the access site to the saphenofemoral junction. There is no extension of thrombus into the common femoral deep system. US/US venous duplex LE IMPRESSION: 1. Normal triplex scan of the left without evidence of deep venous thrombosis. 2. Excellent appearance status post ablation of the left great saphenous vein.
== END 2023-09-17 12:53 | disposition home or self-care (01) ==
LOC: HO.US 12:52
PROVIDERS: PCP Internal Medicine; Visit Provider Surgery Vascular Surgery
DX: M79.605 Pain in left leg (principal)
CPT/HCPCS: 93971

== ENCOUNTER 2023-09-27 10:27 | Outpatient (AMB) | payer MEDICARE, SELFPAY ==
--- NOTE | 2023-09-27 10:33 | A.OFFVIS_ITS ---
Intake Visit Reasons: 2 week follow up Left GSV RFA 09/14/2023 Intake Note: Patient presents for 2 week follow up s/p Left GSV RFA performed on 09/14/23. Patient states she has minimal pain. No other complaints. Accompanied by: Self / Same As Patient Allergies penicillin Allergy (Severe, Uncoded 09/14/23 08:44) Hives succinylcholine Allergy (Severe, Uncoded 09/14/23 08:44) pseudocholinesterase deficiency HPI HPI 2 week follow up Left GSV RFA 09/14/2023: Details: Very pleasant 78-year-old female presents for follow-up status post left lower extremity venous ablation. She reports that the left leg seems to be doing better. In addition some superficial varicosities have actually shrunk down. She reports that she is doing fairly well. She is now concerned about her right lower extremity. She does have some swelling and discomfort on that leg. Now presents for follow-up. [facility] Medical History Osteoarthritis IBD (inflammatory bowel disease) Crohn's colitis Pseudocholinesterase deficiency Ulcerative colitis Hypothyroidism Hypercholesteremia Surgical History Hx of colonoscopy History of esophagogastroduodenoscopy (EGD) Hx of oral surgery Hx of partial thyroidectomy History of tonsillectomy Family History Father Lung disease Mother Bone disease Diverticular disease Family/Other Thyroid condition Stomach cancer Social History Alcohol intake: never Patient Tobacco Use Status: Never used Tobacco Review of Systems Const Reports as per HPI ENT Reports no additional complaints Card Denies chest pain, Denies chest pain at rest and Denies chest pain with activity Resp Denies chest congestion and Denies cough GI Reports no additional complaints Musc Details: pain over varicosities, aching of lower extremities, swelling, cramping, heaviness and tiredness, itching Denies abnormal gait Skin/Breast Reports pruritus and Denies wounds Neuro Reports no additional complaints and Denies abnormal gait Psych Denies no additional complaints Physical Exam Const General: cooperative, healthy appearing and comfortable Orientation/consciousness: oriented to person, oriented to place and oriented to time Neck Carotids: no bruits Chest Chest palpation & inspection: normal inspection of the chest and normal palpation of entire chest wall Resp Effort & Inspection: normal respiratory effort and able to speak in complete sentences Cardio Rate: regular rate Heart sounds: S1 normal heart sound present and S2 normal heart sound present Peripheral pulses: Peripheral pulses 2+ throughout GI Inspection: Yes normal to inspection Skin Other: +2 edema, large rope-like varicosities greater than 4 mm CEAP Classification C4 - skin color changes Ep - Etiology Primary As - superficial veins P - reflux General skin exam: dry skin Neuro General: oriented to person, oriented to place and oriented to time Extrem Right lower extremity: full ROM, normal capillary refill and edema Left lower extremity: full ROM, normal capillary refill and edema Psych Mental Status: mental status grossly normal Results Reviewed Results Reviewed: Brief summary of venous insufficiency testing is as follows: right great saphenous vein: Positive right small saphenous vein: negative right accessory vein: none present left great saphenous vein: Ablated left small saphenous vein: negative left accessory vein: none present Please note there is no evidence of any venous aneurysms or significant tortuosity Assessment & Plan Assessment & Plan (1) Varicose veins of left lower extremity with inflammation: Comment: 09/14/2023 - left great saphenous vein radiofrequency ablation Code(s): I83.12 - Varicose veins of left lower extremity with inflammation Category: Medical Plan: See below (2) Varicose veins of right lower extremity with inflammation: Code(s): I83.11 - Varicose veins of right lower extremity with inflammation Category: Medical Plan: This patient has varicose veins with inflammation. They continue to be a source of discomfort for the patient. The patient has tried conservative treatment with compression, leg elevation and exercise program for over 3 months time. They have been compliant with all treatment. This has provided minimal relief for the patient. I do not anticipate this course of treatment will alter the underlying etiology. The patient has been scheduled for lower extremity venous treatment inclusive of --- right great saphenous vein Cyanoacralate ablation. Risks, benefits, and complications of this procedure has been discussed in detail with the patient including but not limited to bleeding, inf ection, and the development of a DVT. The patient has demonstrated a clear understanding and has consented. We will schedule the patient as soon as possible. Thank you for allowing us to participate in this patient's care. If there are any questions or concerns please do not hesitate to contact us. Coding Level of Care Code Est Pt Level 4 (52759) Diagnoses Varicose veins of left lower extremity with inflammation I83.12 Varicose veins of right lower extremity with inflammation I83.11
== END 2023-09-27 10:57 | disposition home or self-care (01) ==
PROVIDERS: PCP Internal Medicine; Visit Provider Surgery Vascular Surgery
DX: I83.12 Varicose veins of left lower extremity with inflammation (principal); I83.11 Varicose veins of right lower extremity with inflammation
CPT/HCPCS: 99214

== ENCOUNTER → 2023-09-27 10:27 | Outpatient (BNVA) | payer MEDICARE, SELFPAY | PROVIDERS: PCP Internal Medicine; Visit Provider Surgery Vascular Surgery | DX: I83.12 Varicose veins of left lower extremity with inflammation (principal); I83.11 Varicose veins of right lower extremity with inflammation | CPT/HCPCS: 99212 ==

== ENCOUNTER 2023-10-22 11:31 | Emergency (ER) | payer MEDICARE, SELFPAY ==
--- NOTE | 2023-10-22 12:02 | ED.EYEPROB ---
HPI - Eye Problem General Chief complaint: Eye Problems Stated complaint: R eye broken blood vessel Related Data Home Medications ?Medication ?Instructions ?Recorded ?Confirmed cholecalciferol (vitamin D3) 25 25 mcg PO DAILY 03/24/20 04/04/23 mcg (1,000 unit) capsule (Vitamin D3) multivitamin 1 tab PO DAILY 03/24/20 04/04/23 ferrous sulfate 325 mg (65 mg 325 mg PO BID 01/04/23 04/04/23 iron) tablet calcium carbonate 500 mg PO DAILY 07/31/23 Previous Rx's ?Medication ?Instructions ?Recorded atorvastatin 20 mg tablet 20 mg PO BEDTIME #60 tabs 10/03/23 Allergies Allergy/AdvReac Type Severity Reaction Status Date / Time penicillin Allergy Severe Hives Uncoded 10/22/23 12:05 succinylcholine Allergy Severe pseudocholinesterase Uncoded 10/22/23 12:05 deficiency PMFSH Past Medical History Medical History Osteoarthritis IBD (inflammatory bowel disease) Crohn's colitis Pseudocholinesterase deficiency Ulcerative colitis Hypothyroidism Hypercholesteremia Surgical History Hx of colonoscopy History of esophagogastroduodenoscopy (EGD) Hx of oral surgery Hx of partial thyroidectomy History of tonsillectomy Family History Family History Father Lung disease Mother Bone disease Diverticular disease Family/Other Thyroid condition Stomach cancer Social History Social History Alcohol intake: never Patient Tobacco Use Status: Never used Tobacco Advance Directives: No Do you have a plan to hurt others: No Plan Physical Exam Vital Signs: Vital Signs: Last Vital Signs Temp 98.2 F 10/22/23 12:04 Pulse 74 10/22/23 12:04 Resp 18 10/22/23 12:04 BP 134/65 10/22/23 12:04 Pulse Ox 97 10/22/23 12:04 O2 Del Method Room Air 10/22/23 12:04 BMI result Body Mass Index 20.2 Course Course Course Narrative: This is a Rapid Medical Exam performed in triage by Mildred Ruth PA-C. Full HPI, ROS and PE to be performed by primary ED provider. 78 year-old F w/ PMHx HTN, cataracts presenting to the ED c/o R eye erythema & irritation x Sunday. +wears glasses no contacts. denies injury, pain or visual loss PE: +subconjunctival hemorrhage noted to R eye, diffuse w/?visible abrasion Plan: VA, fluorescein staining Discharge Plan Discharge Clinical Impression: Subconjunctival hemorrhage Patient Disposition: Left W/O Completing Treatment Prescriptions: No Action atorvastatin 20 mg tablet 20 mg PO BEDTIME Qty: 60 2RF multivitamin Tablet 1 tab PO DAILY cholecalciferol (vitamin D3) [Vitamin D3] 25 mcg (1,000 unit) Capsule 25 mcg PO DAILY ferrous sulfate 325 mg (65 mg iron) tablet 325 mg PO BID calcium carbonate 500 mg calcium (1,250 mg) tablet 500 mg PO DAILY Discharge Date/Time: 10/22/23 16:15
[2023-10-22 12:04] VITALS: BP 134/65; PULSE 74; RESP 18; TEMP 36.8; O2SAT 97; BMI 20.2
== END 2023-10-22 16:15 | disposition left against medical advice (07) ==
PROVIDERS: Emergency Provider Emergency Medicine; PCP Internal Medicine
DX: H11.31 Conjunctival hemorrhage, right eye (principal)
CPT/HCPCS: 99281

== ENCOUNTER 2023-11-30 10:21 | Outpatient (AMB) | payer MEDICARE, SELFPAY ==
[2023-11-30 10:50] VITALS: BMI 20.1
--- NOTE | 2023-11-30 10:50 | A.OFFVIS_ITS ---
Vital Signs 11/30/23 10:50 Height 5 ft 2 in Weight 110 lb BMI 20.1 Intake Visit Reasons: Right GSV Venaseal Accompanied by: Self / Same As Patient Allergies penicillin Allergy (Severe, Uncoded 11/30/23 10:51) Hives succinylcholine Allergy (Severe, Uncoded 11/30/23 10:51) pseudocholinesterase deficiency PFSH Medical History Osteoarthritis IBD (inflammatory bowel disease) Crohn's colitis Pseudocholinesterase deficiency Ulcerative colitis Hypothyroidism Hypercholesteremia Surgical History Hx of colonoscopy History of esophagogastroduodenoscopy (EGD) Hx of oral surgery Hx of partial thyroidectomy History of tonsillectomy Family History Father Lung disease Mother Bone disease Diverticular disease Family/Other Thyroid condition Stomach cancer Social History Alcohol intake: never Patient Tobacco Use Status: Never used Tobacco Physical Exam Vital Signs: BMI result Body Mass Index 20.1 Office Procedures Vascular Office Procedure Details Details: Diagnosis: Right Leg varicose veins with inflammation Procedure: Endovenous Ablation of the right Great Saphenous Vein with VenaSeal Closure System Anesthesia: Local infiltration 5 cc, Estimated Blood Loss: min Specimen: none Duplex ultrasound was used to map out the insufficient saphenous vein, and access was determined and marked on the overlying skin. The depth and diameter of the vein(s) to be treated was documented. The patient was placed supine on the procedure table and the leg was prepped and draped using sterile technique. Ultasound guidance was again used to localize the access site. 1% lidocaine was injected as a local anesthetic in the subcutaneous tissues at the target loc ation in the GSV in the lower leg. Using ultrasound guidance, access was gained at this location with the 19 gauge thin walled access needle and followed by introduction of a short guidewire, location confirmed with ultrasound. A small, 3 mm incision was made at the access site to allow for introduction and placement of the 7 Fr x7cm introducer/dilator. The dilator and guidewire were removed. The 0.035 guidewire from the VenaSeal kit was then introduced and positioned at the saphenofemoral junction using ultrasound guidance. The 80 cm 7 Fr introducer sheath/dilator was positioned 5cm from the saphenofemoral junction. The guidewire and dilator were removed, and the remaining sheath was flushed with sterile saline, with the syringe remaining in place prior to the next steps. The cyanoacrylate adhesive was precisely primed into the 5 F delivery catheter and this catheter/syringe combination was attached within the dispenser gun. This assembly was introduced through the 7F sheath and positioned 5 cm caudal of the saphenofemoral junction under ultrasound guidance. The steps from the IFU were followed for dispensing amounts, locations and compression times, 2 aliquots proximally with 3 minutes of compression, and 1 aliquot every 3 cm distally with 30 sec of compression along the course of the vessel. Following the last injection and compression sequence, the catheter and introducer sheath were pulled out from the access site. Hemostasis was achieved with manual compression and an adhesive bandage was applied to the incision. Ultrasound confirmed complete coaptation and closure of the treated segments of the GSV, and the absence of any DVT at the saphenofemoral junction. Treatment time was approximately 5 minutes and the vein length treated was 24 cm. The drapes were removed and the patient cleaned and prepared for discharge. Post op ultrasound check is scheduled for 48-72 hours and the patient was given written post-op instructions. 63609 - Endoven Ther Chem Adhes 1st All charges added?: Procedure code (CPT) selection complete Assessment & Plan Assessment & Plan (1) Varicose veins of right lower extremity with inflammation: Comment: 11/30/2023 - right great saphenous vein Cyanoacralate ablation Code(s): I83.11 - Varicose veins of right lower extremity with inflammation Category: Medical Plan: See op note Coding Level of Care Code Procedure Only Diagnoses Varicose veins of right lower extremity with inflammation I83.11 CPT Codes Details - Vascular 3: 39933 - Endoven Ther Chem Adhes 1st ([id number])
== END 2023-11-30 11:49 | disposition home or self-care (01) ==
PROVIDERS: PCP Internal Medicine; Visit Provider Surgery Vascular Surgery
DX: I83.11 Varicose veins of right lower extremity with inflammation (principal)
CPT/HCPCS: 36482

== ENCOUNTER → 2023-11-30 10:21 | Outpatient (BNVA) | payer MEDICARE, SELFPAY | PROVIDERS: PCP Internal Medicine; Visit Provider Surgery Vascular Surgery | DX: I83.11 Varicose veins of right lower extremity with inflammation (principal) | CPT/HCPCS: 36482 ==

== ENCOUNTER 2023-12-03 12:24 | Outpatient (REF) | payer MEDICARE, SELFPAY ==
--- NOTE | ~2023-12-03 | US_ITS ---
EXAMINATION: TRIPLEX SCANNING OF RIGHT LOWER EXTREMITY; SUPERFICIAL ULTRASOUND WITH DOPPLER OF RIGHT LOWER EXTREMITY CLINICAL INFORMATION: Status post VenaSeal ablation of the right great saphenous vein originally performed on 11/30/2023. COMPARISON: Preprocedure studies. TECHNIQUE: Color flow triplex imaging and compression Doppler were performed as well as superficial ultrasound with Doppler. FINDINGS: TRIPLEX SCANNING OF RIGHT LOWER EXTREMITY: Respiratory variation, normal compression and augmented flow are noted throughout the lower extremity. The visualized right common femoral vein, femoral vein, profunda femoral vein, popliteal vein and the calf veins show no evidence of deep venous thrombosis. There is no evidence of Singh's cyst. SUPERFICIAL ULTRASOUND WITH DOPPLER OF RIGHT LOWER EXTREMITY: The right great saphenous vein is occluded from the access site to its distal end at the junction with the common femoral vein. The thrombus does not extend into the common femoral vein. US/US venous duplex LE RT IMPRESSION: 1. Normal triplex scan of the right without evidence of deep venous thrombosis. 2. Good appearance status post ablation of the right great saphenous vein with thrombus extending up to the saphenofemoral junction but not into the deep system.
== END 2023-12-03 12:25 | disposition home or self-care (01) ==
LOC: HO.US 12:24
PROVIDERS: PCP Internal Medicine; Visit Provider Surgery Vascular Surgery
DX: M79.604 Pain in right leg (principal)
CPT/HCPCS: 93971

== ENCOUNTER 2023-12-18 10:43 | Outpatient (AMB) | payer MEDICARE, SELFPAY ==
[2023-12-18 10:45] VITALS: BMI 20.1
--- NOTE | 2023-12-18 10:45 | MHC.OFFVIS ---
Vital Signs 12/18/23 10:45 Height 5 ft 2 in Weight 110 lb BMI 20.1 Intake Visit Reasons: 2 week follow up Right GSV Venaseal 11/30/23 Intake Note: 2 week follow up Right GSV Venaseal 11/30/23 & Hx of Left GSV RFA 09/14/23. Pt states that she feels fine s/p procedures but still gets pain in her calf. Accompanied by: Self / Same As Patient Allergies penicillin Allergy (Severe, Uncoded 12/18/23 10:50) Hives succinylcholine Allergy (Severe, Uncoded 12/18/23 10:50) pseudocholinesterase deficiency HPI HPI 2 week follow up Right GSV Venaseal 11/30/23: Details: Very pleasant 78-year-old female presents for follow-up status post right great saphenous vein ablation. She has had no significant postprocedure issues. She now presents for routine postprocedure follow-up. Of note postprocedure ultrasound was negative for DVT PFSH Medical History Osteoarthritis IBD (inflammatory bowel disease) Crohn's colitis Pseudocholinesterase deficiency Ulcerative colitis Hypothyroidism Hypercholesteremia Surgical History Hx of colonoscopy History of esophagogastroduodenoscopy (EGD) Hx of oral surgery Hx of partial thyroidectomy History of tonsillectomy Family History Father Lung disease Mother Bone disease Diverticular disease Family/Other Thyroid condition Stomach cancer Social History Alcohol intake: never Patient Tobacco Use Status: Never used Tobacco Review of Systems Const All systems reviewed & are unremarkable except as noted in HPI and below Reports no additional complaints ENT Reports Normal hearing present Card Denies chest pain, Denies chest pain at rest, Denies chest pain with activity and Denies pedal edema Resp Denies cough GI Denies abdominal pain Musc Denies abnormal gait, Denies muscle cramps and Denies radiating pain into limb Skin/Breast Denies skin ulcer and Denies wounds Neuro Reports Normal hearing present and Denies abnormal gait Psych Reports no additional complaints Physical Exam Vital Signs: BMI result Body Mass Index 20.1 Const General: cooperative, healthy appearing and comfortable Orientation/consciousness: oriented to person, oriented to place and oriented to time HEENT Head: Yes normal to inspection Neck Neck: Yes normal visual inspection Carotids: no bruits Chest Chest palpation & inspection: normal inspection of the chest Resp Effort & Inspection: normal respiratory effort and able to speak in complete sentences Auscultation: clear to auscultation bilaterally, no crackles, no rales, no rhonchi and no wheezes Cardio Rate: regular rate Rhythm: regular rhythm Heart sounds: S1 normal heart sound present and S2 normal heart sound present Bruits: no carotid bruits Peripheral pulses: Peripheral pulses 2+ throughout GI Inspection: Yes normal to inspection Skin Wounds: no wounds Hair: normal Neuro General: oriented to person, oriented to place and oriented to time Cranial nerves: Yes CN's II-XII intact bilaterally and Yes Normal hearing present Cognition (Neuro): normal cognition Motor exam (neuro): 5/5 motor strength present throughout Extrem Other: venous exam: No significant superficial varicosities or spider telangiectasias, minimal edema General: No clubbing, No cyanosis and No edema Psych Appearance: grossly normal Mental Status: mental status grossly normal Speech and movement: Normal speech and movement present Assessment & Plan Assessment & Plan (1) Varicose veins of right lower extremity with inflammation: Comment: 11/30/2023 - right great saphenous vein Cyanoacralate ablation Code(s): I83.11 - Varicose veins of right lower extremity with inflammation Category: Medical Plan: The patient has done extremely well with all venous treatments. Patient's may often experience postprocedure phlebitic episodes and I have discussed with the patient use of warm compresses and NSAIDS if tolerated for pain discomfort. In addition, I have discussed continued conservative measures including use of compression, leg elevation, and exercise. The patient was also given an information sheet regarding appropriate use of compression stockings and future purchases. Thank you for allowing us to care for your patient with venous disease. (2) Varicose veins of left lower extremity with inflammation: Comment: 09/14/2023 - left great saphenous vein radiofrequency ablation Code(s): I83.12 - Varicose veins of left lower extremity with inflammation Category: Medical Plan: See above Coding Level of Care Code Est Pt Level 3 (67803) Diagnoses Varicose veins of right lower extremity with inflammation I83.11 Varicose veins of left lower extremity with inflammation I83.12
== END 2023-12-18 11:12 | disposition home or self-care (01) ==
PROVIDERS: PCP Internal Medicine; Visit Provider Surgery Vascular Surgery
DX: I83.11 Varicose veins of right lower extremity with inflammation (principal); I83.12 Varicose veins of left lower extremity with inflammation
CPT/HCPCS: 99213

== ENCOUNTER → 2023-12-18 10:43 | Outpatient (BNVA) | payer MEDICARE, SELFPAY | PROVIDERS: PCP Internal Medicine; Visit Provider Surgery Vascular Surgery | DX: I83.11 Varicose veins of right lower extremity with inflammation (principal); I83.12 Varicose veins of left lower extremity with inflammation | CPT/HCPCS: 99212 ==

== ENCOUNTER 2024-04-07 13:57 | Outpatient (AMB) | payer MEDICARE, SELFPAY ==
[2024-04-07 14:04] VITALS: BP 110/60; PULSE 79; BMI 20.1
--- NOTE | 2024-04-07 14:04 | A.OFFVIS_ITS ---
Vital Signs 04/07/24 14:04 Height 5 ft 2 in Weight 109 lb 12.643 oz BMI 20.1 BP 110/60 Blood Pressure Location Lt brachial Position Sitting Pulse 79 Pulse Source Monitor Intake Visit Reasons: 1 yr f/up Intake Note: 1 yr f/up Cleaner And Preparer Required: No Accompanied by: Self / Same As Patient Allergies penicillin Allergy (Severe, Uncoded 12/18/23 10:50) Hives succinylcholine Allergy (Severe, Uncoded 12/18/23 10:50) pseudocholinesterase deficiency Medication List - Last Reconciled 04/07/24 by Abilio Duggan MD atorvastatin 20 mg PO BEDTIME calcium carbonate 500 mg PO DAILY cholecalciferol (vitamin D3) (Vitamin D3) 25 mcg PO DAILY ferrous sulfate 325 mg PO BID multivitamin 1 tab PO DAILY HPI Comments Details: Pleasant 78-year-old female here for f/u. She said she has had low blood pressure all her life. No syncope in the past. Off and on she has felt dizzy specially in the [place]. Recently she started noticing exertional chest discomfort specially when she goes up stairs. This has been happening for few weeks now. She thinks this is due to low blood pressure. She has background of colitis, hyperlipidemia and hypothyroidism. She has been using atorvastatin 10 mg once a day. She has no bleeding issues. She denies dyspnea with exertion. ECG showing sinus rhythm, normal ECG, QTC 406 milliseconds. She was referred for echocardiography and stress test. She did not have any ischemic EKG changes or wall motion abnormality on stress echocardiography. Echocardiography showed normal biventricular function with mild MR. 04/04/2023: She returns for follow-up. She has been doing well. She is getting some discomfort in the chest at nighttime. During the day she does not get any symptoms. She is denying any acid reflux symptoms. She was previously started on atorvastatin for an LDL cholesterol of 168. Her HDL was 16 triglycerides were 63 total cholesterol was 240. She is saying that she had some GI issues with atorvastatin a stop date but will be starting it again. She has known history of ulcerative colitis. She is concerned about her varicose veins on the left leg. She is getting pain and fullness in the left leg along with itching. 04/07/2024: She is here for 1 year visit. No exertional complaints were continues to have nighttime chest discomfort off and on. She has anxiety dis order. Blood pressure is well controlled. EKGs normal. Her LDL cholesterol was elevated previously at 168 and she was started on atorvastatin 20 mg daily. Her LDL has decreased from 168-145. Her target is below 100. [facility] Medical History Osteoarthritis IBD (inflammatory bowel disease) Crohn's colitis Pseudocholinesterase deficiency Ulcerative colitis Hypothyroidism Hypercholesteremia Surgical History Hx of colonoscopy History of esophagogastroduodenoscopy (EGD) Hx of oral surgery Hx of partial thyroidectomy History of tonsillectomy Family History Father Lung disease Mother Bone disease Diverticular disease Family/Other Thyroid condition Stomach cancer Social History Alcohol intake: never Patient Tobacco Use Status: Never used Tobacco Review of Systems Const Denies chills, Denies fatigue, Denies fever(s), Denies frequent falls, Denies weakness, Denies weight gain and Denies weight loss ENT Denies dizziness Card Denies chest pain, Denies leg edema, Denies lightheadedness, Denies palpitations, Denies dyspnea and Denies dyspnea on exertion Resp Denies cough, Denies dyspnea and Denies dyspnea on exertion GI Denies hematochezia Musc Denies abnormal gait, Denies muscle weakness, Denies numbness, Denies radiating pain into limb and Denies tingling Neuro Denies abnormal gait, Denies dizziness, Denies frequent falls, Denies numbness, Denies tingling and Denies weakness Endo Denies fatigue and Denies palpitations Physical Exam Vital Signs: Last Vital Signs Pulse 79 04/07/24 14:04 BP 110/60 04/07/24 14:04 BMI result Body Mass Index 20.1 GENERAL APPEARANCE: in no acute distress, thin. NECK/THYROID: no carotid bruit, no jugular venous distention. SKIN: no suspicious lesions, warm and dry. HEART: no murmurs, regular rate and rhythm, S1, S2 normal. LUNGS: clear to auscultation bilaterally. ABDOMEN: normal, bowel sounds present, soft, nontender, nondistended. EXTREMITIES: Varicose veins left leg. PERIPHERAL PULSES: equal. NEUROLOGIC: nonfocal, alert and oriented. Office Procedures EKG Details: Sinus rhythm 79 beats per minute, normal ECG, QTC 405 milliseconds. [id number], Complete Assessment & Plan Assessment & Plan (1) Chest pain: Code(s): R07.9 - Chest pain, unspecified Category: Medical (2) Hypertension: Code(s): I10 - Essential (primary) hypertension Category: Medical (3) Hyperlipidemia: Code(s): E78.5 - Hyperlipidemia, unspecified Category: Medical Plan Pleasant 78 year female who is here for follow-up. She has known history of hypertension, hyperlipidemia and chest pains. Chest pains appear to be noncardiac in origin. Blood pressure is well controlled without any medications at this stage. She does have hyperlipidemia with LDL of 168 in the past which has decreased to 145 after 20 mg of atorvastatin. Increasing atorvastatin to 40 mg daily. Please repeat lipid panel in 8 weeks. If LDL still more than 100 then add ezetimibe 10 mg daily. She will follow up with us in 1 year. Thank you for allowing me to participate in the care of your patient. Please feel free to contact me if you have any questions. Orders: Orders Lipid Panel 2 Months E78.5 - Hyperlipidemia, unspecified Coding Level of Care Code Est Pt Level 4 (37219) Diagnoses Chest pain R07.9 Hypertension I10 Hyperlipidemia E78.5 CPT Codes EKG - CPT: 25997-[id number], Complete ([id number])
--- OUTSIDE RECORDS SUMMARY | 2024-04-09 15:59 | XMS_ITS ---
Author Organization Hans Webb DO, FACP Address [address] [place] [phone] Care Team Providers Care Environmental Issues Instructor Name Role Phone Hans Webb Primary Care Provider ALLERGIES No Known Allergies REASON FOR REFERRAL Reason Thyroid nodules Diagnosis 1 Multiple thyroid nod ules (E04.2) Referral Organization Hans Moore FACP Referring Provider First Name Hans Referring Provider Perfecto Name Tracey Referring Provider Speciality Internal M edicine Referred Provider Marcel Marti Referred Provider Specialty Endocrinolog y General Notes Patt Barrow 4 03:30:49 PM EDT > Referral faxed prior to Scheduling appt.Pushpa Donna 08/21/2023 04:06:58 PM EDT > LMOM For that office to call our office back.Venancio Joan 08/22/2023 09:28:34 AM EDT > patient is established with that practice and was to be seen in a couple months, but they will call patient for earlier appointment (with Dr. Marti's PA). Referral Priority Routine Referral Appointment Date 09/10/2023 Reason Memory loss Diagnosis 1 Memory loss (R41.3) Referral Organization Hans Moore FACP Referring Provider First Name Hans Referring Provider Perfecto Name Tracey Referring Provider Speciality Internal M edicine Referred Provider Joaquin Muñoz Referred Provider Specialty Neurology General Notes Patt Barrow 4 03:31:26 PM EDT > Referral faxed prior to Scheduling appt., Patt Barrow 04/08/2024 10:30:01 AM EST > Referral refaxed prior to scheduling. Referral Priority Routine Referral Appointment Date 05/29/2024 REASON FOR VISIT 2 month f/u, Follow up ulcerative colitis, hypercholesterolemia MEDICATIONS Medication SIG (Take, Route, Frequency, Duration) Notes Start Date End Date Status Vitamin B12 3000 MCG 1 tablet Sublingual Once a day Active Betamethasone Valerate 0.1 % 1 application as needed Externally Once a day 10/03/2021 Active PreserVision AREDS - 1 capsule Orally Tw ice a day Active Atorvastatin Calcium 20 MG 1 tablet Oral ly Once a day Active ALPRAZolam 0.5 MG 1 tablet as needed O rally Once a day 02/08/2022 Active Vitamin D 1000 UNIT 1 tablet Orally Once a day Active Lialda 1.2 GM 2 tablets with a brianna l as needed Orally Twice a day Active Probiotic 250 MG 1 capsule Orally Onc e a day Active SOCIAL HISTORY Tobacco Use: Social History Observation Description Date Details (start date - stop date) Never Smoker NA - NA Sex Assigned At : Social History Observation Description Sex Assigned At Unknown Tobacco Use/Smoking Question Answer Notes Patient is a nonsmoker Additional Findings: Tobacco Non-User Cu rrent non-smoker, currently using no form of tobacco Alcohol Screen Question Answer Notes Did you have a drink containing alcohol in the p ast year? No Points 0 Interpretation Negative PROBLEMS Problem Type ICD Code Onset Dates Problem Status W/U Status Risk SNOMED Code Notes Problem Memory loss (R41.3) Active confirmed [id number] VITAL SIGNS BMI 19.62 kg/m2 07/10/2023 Blood pressure systolic 100 mm Hg 07/10/19 24 Blood pressure diastolic 52 mm Hg 024 Height 62.5 in 07/10/2023 Weight 109 lbs 07/10/2023 Encounters Encounter Location Date Provider Diagnosis Hans Webb DO, FACP [address], [place] [phone] 07/10/2023 Hans Webb Ulcerative colitis w ithout complications, unspecified location K51.90 ; Iron deficiency anemia due to chronic blood loss D50.0 ; Multiple thyroid nodules E04.2 ; Venous stasis dermatitis of left lower extremity I87.2 ; Anxiety F41.9 ; Memory loss R41.3 ; Osteoporosis without current pathological fracture, unspecified osteoporosis type M81.0 and Hypercholesterolemia E78.00 ASSESSMENTS Encounter Date Diagnosis Assessment Notes Treatment Notes Treatment Clinical Notes 07/10/2023 Ulcerative colitis w ithout complications, unspecified location (ICD-10 - K51.90) 07/10/2023 Iron deficiency anem ia due to chronic blood loss (ICD-10 - D50.0) 07/10/2023 Multiple thyroid nod ules (ICD-10 - E04.2) 07/10/2023 Venous stasis dermat itis of left lower extremity (ICD-10 - I87.2) 07/10/2023 Anxiety (ICD-10 - F41.9) 07/10/2023 Memory loss (ICD-10 - R41.3) 07/10/2023 Osteoporosis without current pathological fracture, unspecified osteoporosis type (ICD-10 - M81.0) 07/10/2023 Hypercholesterolemia (ICD-10 - E78.00) PLAN OF TREATMENT Medication Medication Name Sig Start Date Stop Date Notes Vitamin B12 3000 MCG 1 tablet Sublingual Once a day Betamethasone Valerate 0.1 % 1 applicati on as needed Externally Once a day 10/03/2021 PreserVision AREDS - 1 capsule Orally Twice a day Atorvastatin Calcium 20 MG 1 tablet Orally Once a day ALPRAZolam 0.5 MG 1 tablet as needed O rally Once a day 02/08/2022 Vitamin D 1000 UNIT 1 tablet Orally Once a day Lialda 1.2 GM 2 tablets with a brianna l as needed Orally Twice a day Probiotic 250 MG 1 capsule Orally Once a day Referrals Referral Date Details 09/10/2023 09/10/2023, Thyroid nodules, Marcel Dannyenstein 05/29/2024 05/29/2024, Memory l oss, M Sarahy Muñoz Next Appt Details Follow Up: 6 Months, Reason: follow up visit Provider Name:Hans luis, 06/17/2024 10:15:00 AM, [address] [place] [address], [phone], Progress Notes * Examination Category Sub-Category Detail Notes General Examination GENERAL APPEARANCE: in no ac [place] distress, well developed, well nourished HEAD: normocephalic, atrau matic HEART: no murmurs, regular rate and rhythm, S1, S2 normal LUNGS: clear to auscultatio n bilaterally ABDOMEN: normal, bowel sounds present, soft, nontender, nondistended SKIN: warm and dry EXTREMITIES: no edema PSYCH: alert, oriented, cog nitive function intact Consultation Request Notes Referral Date Referring Provider Referred Provider Not es 07/10/2023 Hans Webb Barry Thyroid nodules 07/10/2023 Hans Webb M Zubair [facility] oss
--- OUTSIDE RECORDS SUMMARY | 2024-04-09 15:59 | XMS_ITS ---
Author Organization Hans Webb DO, [facility] Address [address] [place] [phone] Care Team Providers Care Senior Health Physics Technician Name Role Phone Hans Webb Primary Care Provider REASON FOR VISIT 6 month f/u Encounters Encounter Location Date Provider Diagnosis Hans Webb DO, [address] [phone] 01/09/2024 Hans Webb PLAN OF TREATMENT Next Appt Details Provider Name:Hans luis, 06/17/2024 10:15:00 AM, [address] [place] [address], [phone],
--- OUTSIDE RECORDS SUMMARY | 2024-04-09 15:59 | XMS_ITS ---
Author Organization Hasn Webb DO, FACP Address [address] [place], [place] [id number] Care Team Providers Care Extractor Loader And Unloader Name Role Phone Tracey Hans Primary Care Provider ALLERGIES No Known Allergies REASON FOR VISIT Follow up hypercholesterolemia MEDICATIONS Medication SIG (Take, Route, Frequency, Duration) Notes Start Date End Date Status Betamethasone Valerate 0.1 % 1 application as needed Externally Once a day 10/03/2021 Active Atorvastatin Calcium 40 MG 1 tablet Oral ly Once a day for 90 days Active ALPRAZolam 0.5 MG 1 tablet as needed O rally Once a day 02/08/2022 Active Probiotic 250 MG 1 capsule Orally Onc e a day Active Lialda 1.2 GM 2 tablets with a brianna l as needed Orally Twice a day Active Vitamin D 1000 UNIT 1 tablet Orally Once a day Active Vitamin B12 3000 MCG 1 tablet Sublingual Once a day Active PreserVision AREDS - 1 capsule Orally Tw ice a day Active SOCIAL HISTORY Tobacco Use: [...] ast year? No Points 0 Interpretation Negative VITAL SIGNS BMI 19.44 kg/m2 04/08/2024 Blood pressure systolic 104 mm Hg 04/08/20 24 Blood pressure diastolic 48 mm Hg 024 Height 62.5 in 04/08/2024 Weight 108 lbs 04/08/2024 Encounters Encounter Location Date Provider Diagnosis Hans Webb DO, [address] [phone] 04/08/2024 Hans Webb Hypercholesterolemia E78.00 ; Ulcerative colitis without complications, unspecified location K51.90 ; Malodorous urine R82.90 ; Osteoporosis without current pathological fracture, unspecified osteoporosis type M81.0 ; Anxiety F41.9 and Venous stasis dermatitis of left lower extremity I87.2 ASSESSMENTS Encounter Date Diagnosis Assessment Notes Treatment Notes Treatment Clinical Notes 04/08/2024 Hypercholesterolemia (ICD-10 - E78.00) 04/08/2024 Ulcerative colitis w ithout complications, unspecified location (ICD-10 - K51.90) 04/08/2024 Malodorous urine (IC D-10 - R82.90) 04/08/2024 Osteoporosis without current pathological fracture, unspecified osteoporosis type (ICD-10 - M81.0) 04/08/2024 Anxiety (ICD-10 - F41.9) 04/08/2024 Venous stasis dermat itis of left lower extremity (ICD-10 - I87.2) PLAN OF TREATMENT Medication Medication Name Sig Start Date Stop Date Notes Betamethasone Valerate 0.1 % 1 applicati on as needed Externally Once a day 10/03/2021 Atorvastatin Calcium 40 MG 1 tablet Oral ly Once a day for 90 days ALPRAZolam 0.5 MG 1 tablet as needed O rally Once a day 02/08/2022 Probiotic 250 MG 1 capsule Orally Once a day Lialda 1.2 GM 2 tablets with a brianna l as needed Orally Twice a day Vitamin D 1000 UNIT 1 tablet Orally Once a day Vitamin B12 3000 MCG 1 tablet Sublingual Once a day PreserVision AREDS - 1 capsule Orally Twice a day Pending Test Test Name Order Date CBC w DIFF 04/08/2024 LIPOPROTEIN FRACTIONATION (LIPID PANEL) 04/08/2024 PROFILE, FASTING 04/08/2024 TSH (THYROID STIMULATING HORMONE) 2023 VITAMIN D 25-OH TOTAL 04/08/2024 Urinalysis and Microscopic 04/08/2024 Urine Culture 04/08/2024 Next Appt Details Follow Up: 2 Months, Reason: follow up visit,review lab work Provider Name:Hans luis, 06/17/2024 10:15:00 AM, [address] [place] [address], [phone], Progress Notes * Examination Category Sub-Category Detail Notes General Examination GENERAL APPEARANCE: in no ac [place] distress, well developed, well nourished HEAD: normocephalic, atrau matic HEART: no murmurs, regular rate and rhythm, S1, S2 normal LUNGS: clear to auscultatio n bilaterally ABDOMEN: normal, bowel sounds present, soft, nontender, nondistended SKIN: warm and dry EXTREMITIES: no edema PSYCH: alert, oriented, cog nitive function intact
--- OUTSIDE RECORDS SUMMARY | 2024-04-09 15:59 | XMS_ITS | Patient Health Record ---
Author Organization Hans Webb DO, FACP Address [address] [place] [id number] Care Team Providers Care Bullion Weigher Name Role Phone Tracey Hans Primary Care Provider ALLERGIES No Known Allergies RESULTS Component Value Reference Range Notes Complete Blood Count Auto Di ff Reviewed date:06/01/2023 05:40:41 PM Interpretation:Normal Performing Lab:[facility], [address] [place] [phone] Notes/Report: White Blood Count 5.7 4.8-10.8 X10*3/uL Red Blood Count 4.83 4.20-5.50 X10*6/uL Hemoglobin 14.2 12.0-16.0 g/dl Hematocrit 42.4 37.0-47.0 % Mean Corpuscular Volume 87.8 80.0-98.0 fL Mean Corpuscular Hemoglobin 29.4 27.0-33.0 pg Mean Corpuscular HGB Conc 33.5 31.0-35.0 g/dl Red Cell Distribution Width 14.0 11.0-16.0 % Platelet Count 266 160-400 X10*3/uL Mean Platelet Volume 9.5 9.4-12.3 fL Neutrophils Percent Auto 69.9 45-73 % Imm Gran Pct Auto 0.5 0.0-0.4 % Lymphocytes Percent Auto 17.7 20-40 % Monocytes Percent Auto 8.9 2-11 % Eosinophils Percent Auto 2.5 0-4 % Basophils Percent Auto 0.5 0-2 % NRBC Pct Auto 0.0 0.0-0.2 /100WBC Neutrophils Absolute Auto 4.0 2.0-8.3 x10*3/u L Imm Gran Abs Auto 0.03 0.00-0.03 X10*3/uL Lymphocytes Absolute Auto 1.0 1.2-4.9 X10*3/u L Monocytes Absolute Auto 0.5 0.1-1.2 X10*3/uL Eosinophils Absolute Auto 0.1 0.0-0.4 X10*3/u L Basophils Absolute Auto 0.0 0.0-0.2 X10*3/uL NRBC Abs Auto 0.000 0.0-0.012 X10*3/uL Comprehensive [place]. Panel Fa st Reviewed date:06/01/2023 05:40:41 PM Interpretation:Normal Performing Lab:[facility], [address] [place] [phone] Notes/Report: Sodium 139 135-145 mmol/L Potassium 4.5 3.3-5.1 mmol/L Chloride 103 96-108 mmol/L Carbon Dioxide 28 22-29 mmol/L Anion Gap 13 12-20 Blood Urea Nitrogen 20 9-16 mg/dL Creatinine 0.79 0.5-1.4 mg/dL Estimated Glomerular Filt Rate > 60 NOTE: For -Macanese individuals, multiply the result by 1.210. Chronic Kidney Disease: Estimated GFR < 60 mL/min/1.73m2 Severe Kidney Disease: Estimated GFR < 15 mL/min/1.73m2 Glucose Fasting 92 60-99 mg/dL Calcium 9.3 8.4-10.2 mg/dL Bilirubin Total 0.6 0.0-1.0 mg/dL Aspartate Amino Transferase 26 5-31 U/L Alanine Aminotransferase 24 0-31 U/L Total Protein 7.4 6.5-8.0 g/dL Albumin Level 4.0 3.5-5.0 g/dL Alkaline Phosphatase 94 39-117 U/L IRON PROFILE Reviewed date:06/01/2023 05:40:41 PM Interpretation:Normal Performing Lab:[facility], [address] [place] [phone] Notes/Report: Iron 144 30-160 mcg/dL Total Iron Binding Capacity 329 228-428 mcg/d L Percent Iron Saturation 44 15-50 % Unsaturated Iron Binding 185 Ferritin Reviewed date:06/01/2023 05:40:41 PM Interpretation:Normal Performing Lab:[facility], [address] [place] [phone] Notes/Report: Ferritin 21 10-250 ng/mL Lipid Panel Reviewed date:06/01/2023 05:42:08 PM Interpretation:Abnormal Performing Lab:[facility], [address] [place] [phone] Notes/Report: Triglycerides 59 <150 mg/dL Desirable Triglyceride: less than 150 mg/dL Borderline High Triglyceride 150-199 mg/dL High Triglyceride: 200-499 mg/dL Very High Triglyceride: greater than or equal to 5OO mg/dL Cholesterol 225 <200 mg/dL Desirable Cholesterol: less than 200 mg/dL Borderline High Cholesterol: 200-239 mg/dL High Cholesterol: greater than 239 mg/dL LDL Cholesterol Calculated 145 <100 mg/dL Desirable LDL: less than 100 mg/dL Near Optimal/Above Optimal LDL: 110-129 mg/dL Borderline High LDL: 130-159 mg/dL High LDL: 160-189 mg/dL Very High LDL: greater than or equal to 190 mg/dL HDL Cholesterol 69 >40 mg/dL Desirable HDL: greater than 40 mg/dL Note: This HDL assay may give artificially low results in patients with liver disease. Vitamin B12 and Folate Reviewed date:06/01/2023 05:40:41 PM Interpretation:Normal Performing Lab:[facility], [address] [place] [phone] Notes/Report: Vitamin B12 778 200-900 pg/mL NORMAL 200-900 PG/ML INDETERMINATE 160-199 PG/ML DEFICIENT < 160 PG/ML Folate 13.2 > or = 4.0 ng/mL Reference Values: > or = 4.0 ng/mL < 4.0 ng/mL suggests folate deficiency Methotrexate, aminopterin and folinic acid (leucovorin) are chemotherapeutic agents whose molecular structures are similar to folate; therefore, the [employer] folate assay cannot be used for patients using these drugs. Vitamin D 25-OH Total Reviewed date:06/01/2023 05:40:41 PM Interpretation:Normal Performing Lab:[facility], [address] [place] [phone] Notes/Report: Vitamin D 25-OH Total 52.9 >30 ng/mL Health Based Reference Values* < 20 ng/mL Deficient 20-30 ng/mL Insufficient > 30 ng/mL Sufficient *Newton RAMSEY. N Engl J Med. 2007;357:266-280 Care must be taken in interpreting Vitamin D results from different laboratories and methodologies. Published data demonstrated that results from patients undergoing hemodialysis may show a negative bias when tested with various automated 25-OH vitamin D assays when compared to LC-MS/MS. When testing samples from patients whose predominant form of Vitamin D is Vitamin D2, such as patients receiving Vitamin D2 supplementation, results that are subtherapeutic should be confirmed with another method such as LC-MS/MS. Thyroid Stimulating Hormone Reviewed date:06/01/2023 05:40:41 PM Interpretation:Normal Performing Lab:[facility], [address] [place] [phone] Notes/Report: Thyroid Stimulating Hormone 3.49 0.32-4.0 uIU/ mL Note: A sustained TSH level above 2.5 uIU/mL may warrant further investigation. TSH 3rd Generation ([facility]) US venous insuf bilat Reviewed date:07/04/2023 01:12:30 PM Interpretation:Abnormal Performing Lab: Notes/Report: [address] [address] Ultrasound Report Signed Patient: Jory Barragan MR#: [id number] : 1945 Acct:[id number] Age/Sex: 78 / F ADM Date: 07/03/23 Loc: HO.US Attending Dr: Pete Ernandez MD Ordering Physician: Pete Ernandez MD Date of Service: 07/03/23 Procedure(s): US venous insuf bilat Accession Number(s): [id number] cc: Hans Webb DO; Pete Ernandez MD EXAMINATION: US LOWER EXTREMITY VENOUS (REFLUX EXAM), BILATERAL CLINICAL INFORMATION: Chronic venous insufficiency with lower extremity varicose veins and inflammation COMPARISON: None. TECHNIQUE: Color flow triplex imaging and compression Doppler was performed to evaluate both the deep and the superficial systems bilaterally. To evaluate the superficial system, the examination was performed in the upright position. Color-flow Doppler ultrasound and compression ultrasound were utilized. In addition, maneuvers were utilized to demonstrate reflux. FINDINGS: 1. DEEP VENOUS ULTRASOUND OF THE RIGHT LOWER EXTREMITY: Common Femoral Vein: Compressible, normal respiratory variation and augmented flow. Femoral Vein: Compressible, normal color flow and augmentation. Popliteal Vein: Compressible, normal augmentation. Deep Reflux: There is no evidence of reflux in the deep system in either the common femoral vein, superficial femoral or the popliteal vein. Complex Singh's cyst measuring 3.8 x 1.7 x 2.3 cm 2. SUPERFICIAL ULTRASOUND WITH DOPPLER OF RIGHT LOWER EXTREMITY: GREAT SAPHENOUS VEIN: Saphenofemoral Junction: 0.6 cm; Reflux: 0 ms Proximal Thigh: 0.3 cm; Reflux: 1664 ms Mid Thigh: 0.3 cm; Reflux: 2864 ms Distal Thigh: 0.3 cm; Reflux: 2348 ms At Knee: 0.4 cm; Reflux: 2336 ms Proximal Calf: 0.4 cm; Reflux: 2284 ms Mid Calf: 0.2 cm; Reflux: 2596 ms Distal Calf: 0.2 cm; Reflux: 2500 ms DUPLICATED MEDIAL GREAT SAPHENOUS VEIN: Diameter: 0.1 cm Reflux: None DUPLICATED LATERAL GREAT SAPHENOUS VEIN: Diameter: None imaged Reflux: NA SMALL SAPHENOUS VEIN: Saphenopopliteal Junction: 0.2 cm; Reflux: 0 ms Proximal: 0.1 cm; Reflux: 0 ms Distal: 0.2 cm; Reflux: 0 ms VEIN OF GIACOMINI: Size: NA Reflux: NA PERFORATORS: Location: None significant Size: NA Reflux: NA VARICOSITIES: Location: None significant. Size: NA Reflux: NA 3. DEEP VENOUS ULTRASOUND OF THE LEFT LOWER EXTREMITY: Common Femoral Vein: Compressible, normal respiratory variation and augmented flow. Femoral Vein: Compressible, normal color flow and augmentation. Popliteal Vein: Compressible, normal augmentation. Deep Reflux: There is no evidence of reflux in the deep system in either the common femoral vein, superficial femoral or the popliteal vein. Simple Singh's cyst measuring 2.2 x 2.9 x 1.1 cm 4. SUPERFICIAL ULTRASOUND WITH DOPPLER OF LEFT LOWER EXTREMITY: GREAT SAPHENOUS VEIN: Saphenofemoral Junction: 0.8 cm; Reflux: 0 ms Proximal Thigh: 0.7 cm; Reflux: 2000 ms Mid Thigh: 0.5 cm; Reflux: 2196 ms Distal Thigh: 1.0 cm; Reflux: 2620 ms At Knee: 0.5 cm; Reflux: 2136 ms Proximal Calf: 0.6 cm; Reflux: 2748 ms Mid Calf: 0.5 cm; Reflux: 2776 ms Distal Calf: 0.2 cm; Reflux: 0 ms DUPLICATED MEDIAL GREAT SAPHENOUS VEIN: Diameter: 0.2 cm Reflux: None DUPLICATED LATERAL GREAT SAPHENOUS VEIN: Diameter: None imaged. Reflux: NA SMALL SAPHENOUS VEIN: Saphenopopliteal Junction: 0.1 cm; Reflux: 0 ms Proximal: 0.1 cm; Reflux: 0 ms Distal: 0.2 cm; Reflux: 0 ms VEIN OF GIACOMINI: Size: NA Reflux: NA PERFORATORS: Location: Proximal calf Size: 0.3 cm Reflux: None VARICOSITIES: Location: Mid calf off the great saphenous vein Size: 0.4 cm Reflux: 2224 ms US/US venous insuf bilat IMPRESSION: Right: Severe reflux throughout the right great saphenous vein Left: Severe reflux throughout the left great saphenous vein. Dilated varicose vein at the mid calf great saphenous vein with severe reflux Dictated By: Hiren Villa MD Signed By: <Electronically signed by Hiren Villa MD in [place]> 07/04/23 0945 DD/ 1124 TD/TT: Hydraulic Barker Operator: US venous duplex LE Reviewed date:09/17/2023 02:36:07 PM Interpretation:Negative Performing Lab: Notes/Report: [address] [address] Ultrasound Report Signed Patient: Jory Barragan MR#: [id number] : 1945 Acct:[id number] Age/Sex: 78 / F ADM Date: 09/17/23 Loc: HO.US Attending Dr: Ptee Ernandez MD Ordering Physician: Pete Ernandez MD Date of Service: 09/17/23 Procedure(s): US venous duplex LE Accession Number(s): [id number] cc: Hans Webb DO; Pete Ernandez MD EXAMINATION: TRIPLEX SCANNING OF LEFT LOWER EXTREMITY; SUPERFICIAL ULTRASOUND WITH DOPPLER OF LEFT LOWER EXTREMITY CLINICAL INFORMATION: Status post RF ablation the left great saphenous vein. COMPARISON: Preprocedure studies. TECHNIQUE: Color flow triplex imaging and compression Doppler were performed as well as superficial ultrasound with Doppler. FINDINGS: TRIPLEX SCANNING OF LEFT LOWER EXTREMITY: Respiratory variation, normal compression and augmented flow are noted throughout the lower extremity. The visualized common femoral vein, femoral vein, profunda femoral vein, popliteal vein and the calf veins show no evidence of deep venous thrombosis. There is no evidence of Singh's cyst. SUPERFICIAL ULTRASOUND WITH DOPPLER OF LEFT LOWER EXTREMITY: The left great saphenous vein is occluded from the access site to the saphenofemoral junction. There is no extension of thrombus into the common femoral deep system. US/US venous duplex LE LT IMPRESSION: 1. Normal triplex scan of the left without evidence of deep venous thrombosis. 2. Excellent appearance status post ablation of the left great saphenous vein. Dictated By: Eric Joya MD Signed By: <Electronically signed by Eric Joya MD in [place]> 09/17/23 1421 DD/ 1312 TD/TT: Hydraulic Barker Operator: US venous duplex LE RT Reviewed date:12/03/2023 03:02:37 PM Interpretation:Abnormal Performing Lab: Notes/Report: [address] [address] Ultrasound Report Signed Patient: Jory Barragan MR#: [id number] : 1945 Acct:[id number] Age/Sex: 78 / F ADM Date: 12/03/23 Loc: . Attending Dr: Pete Ernandez MD Ordering Physician: Pete Ernandez MD Date of Service: 12/03/23 Procedure(s): US venous duplex LE RT Accession Number(s): [id number] cc: Hans Webb DO; Pete Ernandez MD EXAMINATION: TRIPLEX SCANNING OF RIGHT LOWER EXTREMITY; SUPERFICIAL ULTRASOUND WITH DOPPLER OF RIGHT LOWER EXTREMITY CLINICAL INFORMATION: Status post VenaSeal ablation of the right great saphenous vein originally performed on 11/30/2023. COMPARISON: Preprocedure studies. TECHNIQUE: Color flow triplex imaging and compression Doppler were performed as well as superficial ultrasound with Doppler. FINDINGS: TRIPLEX SCANNING OF RIGHT LOWER EXTREMITY: Respiratory variation, normal compression and augmented flow are noted throughout the lower extremity. The visualized right common femoral vein, femoral vein, profunda femoral vein, popliteal vein and the calf veins show no evidence of deep venous thrombosis. There is no evidence of Singh's cyst. SUPERFICIAL ULTRASOUND WITH DOPPLER OF RIGHT LOWER EXTREMITY: The right great saphenous vein is occluded from the access site to its distal end at the junction with the common femoral vein. The thrombus does not extend into the common femoral vein. US/US venous duplex LE RT IMPRESSION: 1. Normal triplex scan of the right without evidence of deep venous thrombosis. 2. Good appearance status post ablation of the right great saphenous vein with thrombus extending up to the saphenofemoral junction but not into the deep system. Dictated By: Eric Joya MD Signed By: <Electronically signed by Eric Joya MD in [place]> 12/03/23 1404 DD/ 1259 TD/TT: Hydraulic Barker Operator: GIOVANNY REASON FOR REFERRAL Reason Osteoporosis Diagnosis 1 Osteoporosis without current pathological fracture, unspecified osteoporosis type (M81.0) Referral Organization Hans Moore FACP Referring Provider First Name Hans Referring Provider Last Name Tracey Referring Provider Speciality Internal edicine Referred Provider Marcel Marti Referred Provider Specialty Endocrinolog y General Notes Patt Barrow 3 01:12:07 PM EST > Referral faxed prior to scheduling Referral Priority Routine Referral Appointment Date 08/08/2023 Reason Thyroid nodules Diagnosis 1 Multiple thyroid nod ules (E04.2) Referral Organization Hans Moore FACP Referring Provider First Name Hans Referring Provider Last Name Tracey Referring Provider Speciality Internal edicine Referred Provider Marcel Marti Referred Provider Specialty Endocrinolog y General Notes Patt Barrow 4 03:30:49 PM EDT > Referral faxed prior to Scheduling appt., Patt Barrow 08/21/2023 04:06:58 PM EDT > LMOM For [...] 1 Memory loss (R41.3) Referral Organization Hans Moore, FACP Referring Provider First Name Hans Referring Provider Last Name Tracey Referring Provider Speciality Internal M edicine Referred Provider Joaquin Muñoz Referred Provider Specialty Neurology General Notes Patt Barrow 03:31:26 PM EDT > Referral faxed prior to Scheduling appt.Pushpa Donna 04/08/2024 10:30:01 AM EST > Referral refaxed prior to scheduling. Referral Priority Routine Referral Appointment Date 05/29/2024 MEDICATIONS Medication SIG (Take, Route, Frequency, Duration) Notes Start Date End Date Status Betamethasone Valerate 0.1 % 1 application as needed Externally Once a day 10/03/2021 Active Atorvastatin Calcium 40 MG 1 tablet Oral ly Once a day for 90 days Active Vitamin D 1000 UNIT 1 tablet Orally Once a day Active Vitamin B12 3000 MCG 1 tablet Sublingual Once a day Active PreserVision AREDS - 1 capsule Orally Tw ice a day Active ALPRAZolam 0.5 MG 1 tablet as needed O rally Once a day 02/08/2022 Active Probiotic 250 MG 1 capsule Orally Onc e a day Active Lialda 1.2 GM 2 tablets with a brianna l as needed Orally Twice a day Active IMMUNIZATIONS Vaccine Route Administration Date Status Comme nts Td (adult) Unknown 11/11/2005 Administered PPD Unknown 08/14/2005 Administered DECLINE: Influenza Unknown 03/06/2012 Administered COVID-19 Bridger (J/J) Unknown 08/02/2020 Administered Influenza Unknown 03/24/2014 Refused Pneumococcal - PPSV23 Unknown 03/24/2014 Refused Influenza Unknown 06/07/2015 Refused Pneumococcal - PPSV23 Unknown 06/07/2015 Refused Influenza Unknown 03/26/2018 Refused Pneumococcal - PPSV23 Unknown 03/26/2018 Refused Influenza Unknown 03/21/2019 Refused SOCIAL HISTORY Tobacco Use: Social History Observation [...] W/U Status Risk SNOMED Code Notes Problem Dementia (F03.90) Active confirmed Bal ntia (70153405) Problem Anxiety (F41.9) Active confirmed 961254 02 Problem Iron deficiency anem ia due to chronic blood loss (D50.0) Active confirmed 39346135 Problem Ulcerative colitis without complications, unspecified location (K51.90) Active confirmed 56926028 Problem Multiple thyroid nodules (E04.2) Active confirmed 385356916 Problem Memory loss (R41.3) Active confirmed 48 026131 Problem Hypercholesterolemia (E78.00) Active confirmed 89408384 Problem Cataract of both eye s, unspecified cataract type (H26.9) Active confirmed 96428869 Problem Multiple allergies (Z88.9) Active confirmed 588633426 Problem Osteoporosis without current pathological fracture, unspecified osteoporosis type (M81.0) Active confirmed 28163463 Problem Cataract of right ey e, unspecified cataract type (H26.9) Active confirmed 001938286 Problem Venous stasis dermatitis of left lower extremity (I87.2) Active confirmed 17094448 VITAL SIGNS Blood pressure diastolic 48 mm Hg 04/08/2024 Height 62.5 in 04/08/2024 Blood pressure systolic 104 mm Hg 04/08/2024 Weight 108 lbs 04/08/2024 BMI 19.44 kg/m2 04/08/2024 Encounters Encounter Location Date Provider Diagnosis Hans Webb DO [address] [id number] 04/17/2023 Hans Webb Ulcerative colitis w ithout complications, unspecified location K51.90 ; Iron deficiency anemia due to chronic blood loss D50.0 ; Hypercholesterolemia E78.00 ; Anxiety F41.9 and Osteoporosis without current pathological fracture, unspecified osteoporosis type M81.0 Hans Webb DO [address] [id number] 07/10/2023 Hans Webb Ulcerative colitis w ithout complications, unspecified location K51.90 ; Iron deficiency anemia due to chronic blood loss D50.0 ; Multiple thyroid nodules E04.2 ; Venous stasis dermatitis of left lower extremity I87.2 ; Anxiety F41.9 ; Memory loss R41.3 ; Osteoporosis without current pathological fracture, unspecified osteoporosis type M81.0 and Hypercholesterolemia E78.00 Hans Webb DO [address] [id number] 01/09/2024 Hans Webb , [address] [id number] 04/08/2024 Hans Webb Hypercholesterolemia E78.00 ; Ulcerative colitis without complications, unspecified location K51.90 ; Malodorous urine R82.90 ; Osteoporosis without current pathological fracture, unspecified osteoporosis type M81.0 ; Anxiety F41.9 and Venous stasis dermatitis of left lower extremity I87.2 ASSESSMENTS Encounter Date Diagnosis Assessment Notes Treatment Notes Treatment Clinical Notes 04/17/2023 Iron deficiency anem ia due to chronic blood loss (ICD-10 - D50.0) 04/17/2023 Ulcerative colitis w ithout complications, unspecified location (ICD-10 - K51.90) 07/10/2023 Iron deficiency anem ia due to chronic blood loss (ICD-10 - D50.0) 07/10/2023 Ulcerative colitis w ithout complications, unspecified location (ICD-10 - K51.90) 04/08/2024 Ulcerative colitis w ithout complications, unspecified location (ICD-10 - K51.90) 04/08/2024 Hypercholesterolemia (ICD-10 - E78.00) 04/17/2023 Hypercholesterolemia (ICD-10 - E78.00) 07/10/2023 Multiple thyroid nod ules (ICD-10 - E04.2) 04/08/2024 Malodorous urine (IC D-10 - R82.90) 04/17/2023 Anxiety (ICD-10 - F41.9) 07/10/2023 Venous stasis dermat itis of left lower extremity (ICD-10 - I87.2) 04/08/2024 Osteoporosis without current pathological fracture, unspecified osteoporosis type (ICD-10 - M81.0) 04/17/2023 Osteoporosis without current pathological fracture, unspecified osteoporosis type (ICD-10 - M81.0) 07/10/2023 Anxiety (ICD-10 - F41.9) 04/08/2024 Anxiety (ICD-10 - F41.9) 07/10/2023 Memory loss (ICD-10 - R41.3) 04/08/2024 Venous stasis dermat itis of left lower extremity (ICD-10 - I87.2) 07/10/2023 Osteoporosis without current pathological fracture, unspecified osteoporosis type (ICD-10 - M81.0) 07/10/2023 Hypercholesterolemia (ICD-10 - E78.00) PLAN OF TREATMENT Pending Test Test Name Order Date CBC w DIFF 04/08/2024 LIPOPROTEIN FRACTIONATION (LIPID PANEL) 04/08/2024 PROFILE, FASTING 04/08/2024 TSH (THYROID STIMULATING HORMONE) 2023 VITAMIN D 25-OH TOTAL 04/08/2024 Urinalysis and Microscopic 04/08/2024 Urine Culture 04/08/2024 Next Appt Details Provider Name:Hans Nuñez Santa luis, 06/17/2024 10:15:00 AM, [address] [place] [address], [phone], Insurance Providers Payer Name Payer Address Payer Phone Subscriber Number Group Number Insured Name Patient Relationship to Insured Coverage Start Date Coverage End Date [employer] [address] [place], [place] [phone] [id number] Jory Barragan Self - patient is the insured MEDICARE [address] [place] [id number] [phone] [id number] Yung Yumikoamena Self - patient is the insured MEDICAL (GENERAL) HISTORY Medical History History ICD Code inflammatory bowel disease ulcerative colitis iron deficiency anemia hypercholesterolemia Shortness of breath Numbness anxiety thyroid nodule tubular adenoma pseudocholinesterase deficiency Surgical History Surgery Date(Month/Year) tonsillectomy cataract-lens implants OS
--- OUTSIDE RECORDS SUMMARY | 2024-04-09 16:00 | XMS_ITS | Continuity of Care Document ---
Author Organization [facility] [address] [place] [address] Phone [phone] Care Team Providers Care Kiln Setter Name Role Phone Hans Webb M.D. Care Team Information Recei brooke [phone] Problems Active Problems Provider Date Hypercholesterolemia SHARON Munoz Onset: 1 06/25/2022 Osteoporosis SHARON Munoz Onset: 2022 Thyroid nodule SHARON Munoz Onset: 2022 Tubular adenoma SHARON Munoz Onset: 2022 Iron deficiency anemia SHARON Munoz Onset: 04/24/2023 Anxiety SHARON Munoz Onset: 2022 Social History Type Date Description Comments Sex Unknown Marital Status Has been 1 time Lives With Spouse Tobacco Use Start: Unknown Never Smoked Cigarettes Smoking Status Reviewed: 04/24/23 Never Smoked Cigaret michael ETOH Use Rarely consumes alcohol Allergies and adverse reactions Active Allergies Criticality Reaction Severity Comments Date Succinylcholine Unable to assess criticality penicillin 04/24/2023 Penicillin Unable to assess criticality 04/24/2023 Medications Active Medications SIG Qnty Indications Ordering Provider Date Sdqcww86hd/ml Soln Prefill Syringe Inject 60mg every 6 months 1ml M81.0 Rica Hickman M.D. 04/26/2023 Ferrous Cuuoxsa116(65Fe) mg Tablets Take 1 Tablet By Mouth Twice A Day Hans Webb M.D. Atorvastatin Qydagcl14gr Tablets Take 1 Tablet By Mouth AT Bedtime Abilio Duggan MD Vital Signs Date Vital Result Comment 12/13/2023 8:48am BP Systolic 116 mmHg BP Diastolic 60 mmHg Heart Rate 90 /min Height 62 inches 5'2 Weight 111.00 lb BMI (Body Mass Index) 20.3 kg/m2 Results Test Acquired Date Facility Test Result H/L Range N ote TSH+Free T4 09/10/2023 [facility] TSH 2.800 uIU/mL 0.450-4.5 00 T4,Free(Direct) 1.00 ng/dL 0.82- 1.77 Laboratory test finding 09/10/2023 [facility] Vitamin D, 25-Hydroxy 45.1 ng/mL 30.0-100. 0 1 Calcium 9.7 mg/dL 8.7-10.3 Albumin 4.4 g/dL 3.8-4.8 Thyroid Peroxidase (Tpo) Ab 14 IU/mL 0-34 PTH, Intact 20 pg/mL 15-65 Laboratory test finding 04/24/2023 [facility] Reference Lab TSH With Reflex To FT4 <pending> Calcium <pending> 25Oh Vitamin D <pending> PTH, Intact <pending> 1 Vitamin D deficiency has been defined by the [place] of Medicine and an Endocrine Society practice guideline as a level of serum 25-OH vitamin D less than 20 ng/mL (1,2). The Endocrine Society went on to further define vitamin D insufficiency as a level between 21 and 29 ng/mL (2). 1. IOM ([place] of Medicine). 2010. Dietary reference intakes for calcium and D. [place]: The National Academies Press. 2. Newton [place], Sen [place], Ceci BRYANT, et al. Evaluation, treatment, and prevention of vitamin D deficiency: an Endocrine Society clinical practice guideline. JCEM. 2010; 96(7):1911-30. 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 E03.9 Hypothyroidism, unsp ecified M81.0 Age-related osteopor osis w/o current pathological fracture Assessments Date Code Description Provider 12/13/2023 E04.2 Multinodular (cystic) goiter NOS SHARON Munoz 12/13/2023 E03.9 Hypothyroidism, unspecified SHARON Munoz 12/13/2023 M81.0 Age-related oste oporosis without current pathological fracture SHARON Munoz Plan of Treatment Future Appointment(s):* 06/17/2024 10:30 am - SHARON Munoz at Main Office 09/10/2023 - SHARON Munoz* E03.9 Hypothyroidism, unspecified * E04.2 Multinodular (cystic) goiter NOS * M81.0 Age-related osteoporosis without current pathological fracture Functional Status Description No Information Available Mental Status Description No Information Available Referrals Description No Information Available
--- OUTSIDE RECORDS SUMMARY | 2024-04-09 16:00 | XMS_ITS ---
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 esophagus (898270244) Encounters Encounter Location Date Provider Diagnosis [facility] [place] [address] [place] [phone] 01/05/2023 Hans Tyler Esophageal reflux K21.9 ; Bentley esophagus K22.70 ; Hiatal hernia K44.9 ; History of gastric ulcer Z87.11 and Abdominal pain R10.9 ASSESSMENTS Encounter Date Diagnosis Assessment Notes Treatment Notes Treatment Clinical Notes 01/05/2023 Esophageal reflux (ICD-10 - K21.9) 01/05/2023 Bentley esophagus (ICD-10 - K22.70) 01/05/2023 Hiatal hernia (ICD-10 - K44.9) 01/05/2023 History of gastric ulcer (ICD-10 - Z87.11) 01/05/2023 Abdominal pain (ICD-10 - R10.9) PLAN OF TREATMENT No Information
--- OUTSIDE RECORDS SUMMARY | 2024-04-09 16:00 | XMS_ITS | Patient Health Record ---
Author Organization [facility] Address [address] [place] [address] Care Team Providers Care Head Of Visual Merchandising Name Role Phone Hans Webb DO Primary Care Provider Unavail able Hans Tyler Unavailable [phone] ALLERGIES Allergen (clinical drug ingredient) Drug/Non Drug Allergy documented on EMR Reaction Allergy Type Onset Date Status penicillin G Penicillin G Sodium Unknown Drug Allergy Active azathioprine Azathioprine (uncoded) hepatitis Allergy Active REASON FOR REFERRAL No Information MEDICATIONS Medication SIG (Take, Route, Frequency, Duration) Notes Start Date End Date Status Multi Vitamin/Minerals - 1 Orally QD Active Hwprwxof-Wfbug-Axgukrnug c Acid 10-5-3.3 MG as directed Orally Act magali Canasa 1000 MG _insert 1 SUPPOSITOR Y RECTALLY AT BEDTIME NEEDED Rectal prn Not-Taking IMMUNIZATIONS Vaccine Route Administration Date Status Comme nts Influenza Unknown 04/03/2018 Refused SOCIAL HISTORY Sex Assigned At : Social History Observation Description Sex Assigned At Unknown PROBLEMS Problem Type ICD Code Onset Dates Problem Status W/U Status Risk SNOMED Code Notes Problem Esophageal reflux (K21.9) Active confirmed Esophageal refl ux (703827945) Problem Epigastric abdominal pain (R10.13) Active confirmed Epigastric pain (84312313) Problem Encounter for screening for malignant neoplasm of colon (Z12.11) Active confirmed 487669653 Problem History of adenomatous polyp of colon (Z86.010) Active confirmed 297311097 Problem Weight loss (R63.4) Active confirmed 91022062 Problem Crohn's disease of colon (K50.10) Active confirmed Crohn's di sease of colon (27964826) Problem Colon adenomas (D12.6) Active confirmed 804298147 Problem Hiatal hernia (K44.9) Active confirmed Hiatal hernia (40812788) Problem Crohns colitis, without complications (K50.10) Active confirmed 17312504 Problem Exposure to hepatitis C (Z20.5) Active confirmed 387156768 Problem Constipation, unspecified constipation type (K59.00) Active confirmed 27018689 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 Bentley esophag us (776805803) Problem Crohn's disease of large intestine without complication (K50.10) Active confirmed 5421629 Problem Fatigue, unspecified type (R53.83) Active confirmed 12698121 Problem Gastric ulcer (K25.9) Active confirmed Gastric ulcer (204587285) Problem Diverticulosis of colon (K57.30) Active confirmed Diverticulosi s of colon (310824702) PLAN OF TREATMENT Pending Test Test Name Order Date LIVER PROFILE 10/17/2022 TSH (THYROID STIMULATING HORMONE) 2022 IRON + IBC (FE) 10/17/2022 CRP 10/17/2022 CBC w DIFF 10/17/2022 SED RATE (ESR) 10/17/2022 HEPATITIS C ANTIBODY 02/16/2015 ENDOMYSIAL IGA 09/26/2011 TRANSGLUTAMINASE AB IGA 09/26/2011 TRANSGLUTAMINASE AB IGG 09/26/2011 US ABD 02/19/2020 Future Test Test Name Order Date COLONOSCOPY 06/16/2014 COLONOSCOPY 03/06/2017 COLONOSCOPY 04/03/2018 UPPER GI ENDOSCOPY 02/19/2020 COLONOSCOPY 09/13/2021 UPPER GI ENDOSCOPY 10/17/2022 Insurance Providers Payer Name Payer Address Payer Phone Subscriber Number Group Number Insured Name Patient Relationship to Insured Coverage Start Date Coverage End Date [facility] [address] [place] [address] [id number] LI GREENE Self - patient is the insured MEDICAL (GENERAL) HISTORY Medical History History ICD Code Inflammatory bowel disease, probably Crohn's, diagnised in 1998--her colonoscopy in 01/2011-showed the small area of adenomatous tissue in the distal ascending colon, as well as some evidence of inflammatory changes in the sigmoid colon and distal rectum--some small inflammatory polyps were removed from the colon at that time as well. She has been on Humira since the spring with good results, particularly in not requiring any prednisone. 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 She did have a colonoscopy in 2008 at [facility] with Dr. Carlos, which raised a suspicion of some atypical cells in the rectum, although there was a lot of surrounding inflammation and this may very well have affected the pathological reading of the tissue. Followup biopsies of the rectal mucosa during her 2 colonoscopies in 2010 were negative for any type of dysplasia nor adenomatous tissue. She had been on Humira, but stopped it in 11/2012 due to oral surgery(I did not tell her to stop it) Colon polyps--tubular adenom a removed in 07/2010 and 01/2011 in the distal ascending colon Denies [place],DM,CVA,Lung disease,renal dise ase Hypothroidism--thyroid nodules--Dr. Petra obando Hyperlipidemia Colonoscopy in 08/2012--no ac tive colitis-1 small tubular adenoma--no dysplasia Had a neg. U/S of the abdomen and normal CBC and LFT's in 03/2014 in [facility] Colonoscopy in 07/2014--no active colitis , no adenomas, no dysplasia Negative laboratories for celiac disease in 2011 and in 2014 Osteoarthritis-right knee UTI's Negative Hepatitis C antibody Colonoscopy 05/2017--minimal colitis, 1 s mall tubular adenoma, no dysplasia Pseudocholinesterase deficie ncy--found during her 08/2018 thyroid surgery at [facility] Colonoscopy 06/2018--no activ e colitis, no dysplasia on the biopsies, no adenoma EGD 03/2020 with a 5 mm prox imal gastric ulcer, small HH, gastritis--All biopsies were neg for neoplasm and Hpylori---no Bentley's/esophagitis Neg. abdominal ultrasound in 01/2020 + COVID Colonoscopy in September of 2021 was negative for any sign of active colitis nor polyps. There was some evidence of scarring. Biopsies throughout the colon were negative for dysplasia. She had been on Lialda at the time of the colonoscopy, but she decided to stop it at some point thereafter and had remained off of it as of the September 2022 office visit. Surgical History Surgery Date(Month/Year) Tonsillectomy Oral surgery for implants Partial thyroidectomy--benign 08/2018
--- OUTSIDE RECORDS SUMMARY | 2024-04-09 16:00 | XMS_ITS ---
Author Organization [facility] Address [address] [place] [address] Care Team Providers Care Waiter/Waitress Informal Name Role Phone Hans Webb DO Primary Care Provider Unavail able Hans Tyler Unavailable [phone] ALLERGIES Allergen (clinical drug ingredient) Drug/Non Drug Allergy documented on EMR Reaction Allergy Type Onset Date Status penicillin G Penicillin G Sodium Unknown Drug Allergy Active azathioprine Azathioprine (uncoded) hepatitis Allergy Active RESULTS Component Value Reference Range Notes Ferritin Reviewed date:10/17/2022 06:16:33 PM Interpretation: Performing Lab:[address] [address] Notes/Report: Ferritin 31 10-250 ng/mL Vitamin B12 Reviewed date:10/17/2022 06:16:23 PM Interpretation: Performing Lab:[address] [address] Notes/Report: Vitamin B12 1770 200-900 pg/mL NORMAL 200-900 PG/ML INDETERMINATE 160-199 PG/ML DEFICIENT < 160 PG/ML T4 Thyroxine Reviewed date:10/17/2022 06:15:55 PM Interpretation: Performing Lab:[address] [address] Notes/Report: T4 Thyroxine 7.0 4.5-12.0 ug/dL REASON FOR VISIT screening colon MEDICATIONS Medication SIG (Take, Route, Frequency, Duration) Notes Start Date End Date Status Multi Vitamin/Minerals - 1 Orally QD Active Ungvrzsc-Xudjg-Ixwvgwtda c Acid 10-5-3.3 MG as directed Orally Act magali Canasa 1000 MG _insert 1 SUPPOSITOR Y RECTALLY AT BEDTIME NEEDED Rectal prn Not-Taking PROBLEMS Problem Type ICD Code Onset Dates Problem Status W/U Status Risk SNOMED Code Notes Problem Fatigue, unspecified type (R53.83) Active confirmed 97022526 Problem Weight loss (R63.4) Active confirmed 99786888 VITAL SIGNS BMI 19.02 kg/m2 10/17/2022 Blood pressure systolic 000 mm Hg 10/18/19 23 Blood pressure diastolic 00 mm Hg 023 Height 62 in 10/17/2022 Temperature 97.3 degrees Fahrenheit 10/18/19 23 Weight 104 lbs 10/17/2022 Encounters Encounter Location Date Provider Diagnosis [facility] [address] [place] [address] 10/17/2022 Hans Tyler Epigastric abdominal pain R10.13 ; Fatigue, unspecified type R53.83 and Weight loss R63.4 ASSESSMENTS Encounter Date Diagnosis Assessment Notes Treatment Notes Treatment Clinical Notes 10/17/2022 Epigastric abdominal pain (ICD-10 - R10.13) 10/17/2022 Fatigue, unspecified type (ICD-10 - R53.83) 10/17/2022 Weight loss (ICD-10 - R63.4) PLAN OF TREATMENT Pending Test Test Name Order Date LIVER PROFILE 10/17/2022 TSH (THYROID STIMULATING HORMONE) 2022 IRON + IBC (FE) 10/17/2022 CRP 10/17/2022 CBC w DIFF 10/17/2022 SED RATE (ESR) 10/17/2022 Future Test Test Name Order Date UPPER GI ENDOSCOPY 10/17/2022 Next Appt Details Follow Up: prn, Reason: Progress Notes * Examination Category Sub-Category Detail Notes General Examination GENERAL APPEARANCE: pleasant , well nourished, well developed, in no acute distress EYES: sclera non-icteric NECK/THYROID: no cervical lymphade nopathy, neck supple HEART: S1, S2 normal LUNGS: clear to auscultatio n bilaterally ABDOMEN: normal bowel sounds, no guarding or rigidity, no hepatosplenomegaly, no masses palpable, soft, nontender, nondistended. NEUROLOGIC: alert and oriented SKIN: nonjaundiced, no spi stefani angiomata. EXTREMITIES: no edema ORAL CAVITY: mucosa moist
== END 2024-04-07 14:26 | disposition home or self-care (01) ==
PROVIDERS: PCP Internal Medicine; Visit Provider Internal Medicine Cardiovascular Disease
DX: R07.9 Chest pain, unspecified (principal); I10 Essential (primary) hypertension; E78.5 Hyperlipidemia, unspecified
CPT/HCPCS: 93010; 99214

== ENCOUNTER → 2024-04-07 13:57 | Outpatient (BNVA) | payer MEDICARE, SELFPAY | PROVIDERS: PCP Internal Medicine; Visit Provider Internal Medicine Cardiovascular Disease | DX: R07.9 Chest pain, unspecified (principal); E78.5 Hyperlipidemia, unspecified; I10 Essential (primary) hypertension | CPT/HCPCS: 93005; 99212 ==

== ENCOUNTER 2024-04-14 11:14 | Outpatient (REF) | payer MEDICARE, SELFPAY ==
--- OUTSIDE RECORDS SUMMARY | 2024-04-14 11:19 | XMS_ITS | Continuity of Care Document ---
Author Organization [facility] [address] [place] [address] Phone [phone] Care Team Providers Care Medical Art Therapist Name Role Phone Hans Webb M.D. Care Team Information Recei brooke [phone] Problems Active Problems Provider Date Hypercholesterolemia SHARON [...] Medications SIG Qnty Indications Ordering Provider Date Bmiabl32ec/ml Soln Prefill Syringe Inject 60mg every 6 months 1ml M81.0 Rica Hickman M.D. 04/26/2023 Ferrous Mhvvpam207(65Fe) mg Tablets Take 1 Tablet By Mouth Twice A Day Hans Webb M.D. Atorvastatin Gkpwaob26ub Tablets Take 1 Tablet By Mouth AT [...] 20 pg/mL 15-65 Laboratory test finding 04/24/2023 [facility] Reference Lab TSH With Reflex To FT4 <pending> Calcium <pending> 25Oh Vitamin D <pending> PTH, Intact <pending> 1 Vitamin D deficiency has been defined by the [place] of Medicine and an Endocrine Society practice guideline as a level of serum 25-OH vitamin D less than 20 ng/mL (1,2). The Endocrine Society went on to further define vitamin D insufficiency as a level between 21 and 29 ng/mL (2). 1. IOM ([place] of Medicine). 2010. Dietary reference intakes for [...]
[2024-04-14 13:02] LABS: Appearance Urine Cloudy; Color Urine Yellow; Glucose Urine UA Negative (Negative); Leukocyte Esterase Urine Negative (Negative); Nitrite Urine Negative (Negative); PH 5.5 (5.0-9.0); UMIC TRIGGER UA YES; Urine Blood Trace (Negative); Urine Ketones Negative (Negative); Urine Protein Negative (Neg-Trace)
[2024-04-14 13:08] LABS: Bacteria Urine 1+ (None Seen); Hyaline Casts Urine 0-2 /LPF (0-2); Squamous Epithelial Cell Urine 0-2 /HPF (0-2); WBC Urine 0-5 /HPF (0-5)
== END 2024-04-14 11:15 | disposition home or self-care (01) ==
LOC: HO.LAB 11:14
PROVIDERS: PCP Internal Medicine; Visit Provider Internal Medicine
DX: R82.90 Unspecified abnormal findings in urine (principal)
CPT/HCPCS: 81001; 81003; 87086; 87088; 87186

== ENCOUNTER 2024-05-29 11:29 | Outpatient (REF) | payer MEDICARE, SELFPAY ==
[2024-05-29 12:54] LABS: Vitamin B12 827 pg/mL (200-900)
--- OUTSIDE RECORDS SUMMARY | 2024-05-29 15:27 | XMS_ITS ---
Author Organization [facility] [address] [place], [place] [phone] Care Team Providers Care Dispatch Officer Name Role Phone Hans Webb Primary Care Provider REASON FOR VISIT 6 month f/u Encounters Encounter Location Date Provider Diagnosis Hans Webb DO [address] [phone] 01/09/2024 Hans Webb PLAN OF TREATMENT No Information
--- OUTSIDE RECORDS SUMMARY | 2024-05-29 15:27 | XMS_ITS ---
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
--- OUTSIDE RECORDS SUMMARY | 2024-05-29 15:27 | XMS_ITS ---
Author Organization Hans eWbb DO, FACP Address [address] [place] [id number] Care Team Providers Care Town Clerk Name Role Phone Tracey Hans Primary Care Provider [phone] ALLERGIES No Known Allergies RESULTS Component Value Reference Range Notes Urinalysis and Microscopic Reviewed date:04/14/2024 01:43:48 PM Interpretation:Abnormal Performing Lab:[facility], [address] [place] [address] Notes/Report: Color Urine Yellow Appearance Urine Cloudy PH 5.5 5.0-9.0 Glucose Urine UA Negative Negative mg/dL Urine Blood Trace Negative Specific [place] - Urine 1.020 1.005-1.025 Urine Protein Negative Neg-Trace mg/dL Urine Ketones Negative Negative mg/dL Nitrite Urine Negative Negative Leukocyte Esterase Urine Negative Negative RBC Urine 3-5 0-2 /HPF WBC Urine 0-5 0-5 /HPF Squamous Epithelial Cell Urine 0-2 0-2 /HPF Bacteria Urine 1+ None Seen Hyaline Casts Urine 0-2 0-2 /LPF Urine Culture Reviewed date:04/17/2024 12:26:05 PM Interpretation:Positive Performing Lab:[address] [address] Notes/Report: O:ESCCOL Escherichia coli Urine Culture Quant Urine Culture > 100,000 cfu/mL Ampicillin >=32 Cefazolin 2 Cefepime <=0.12 Ceftriaxone <=0.25 Ciprofloxacin <=0.06 Gentamicin <=1 Nitrofurantoin 32 Trimethoprim/Sulfamethoxazole <=20 REASON FOR VISIT Follow up hypercholesterolemia MEDICATIONS [...] Location Date Provider Diagnosis Hans Webb DO, [facility] [address] [place], [place] [phone] 04/08/2024 Hans Webb Hypercholesterolemia E78.00 ; Ulcerative [...] HORMONE) 2023 VITAMIN D 25-OH TOTAL 04/08/2024 Next Appt Details Follow Up: 2 Months, Reason: follow up visit,review lab work Progress Notes * Examination Category Sub-Category Detail Notes General Examination GENERAL APPEARANCE: in no ac kar[place] distress, well developed, well nourished HEAD: normocephalic, atrau matic HEART: no murmurs, regular rate and rhythm, S1, S2 normal LUNGS: clear to auscultatio n bilaterally ABDOMEN: normal, bowel sounds present, soft, nontender, nondistended SKIN: warm and dry EXTREMITIES: no edema PSYCH: alert, oriented, cog nitive function intact
--- OUTSIDE RECORDS SUMMARY | 2024-05-29 15:27 | XMS_ITS ---
Author Organization Hans Webb DO, [facility] Address [address] [place], [place] [phone] Care Team Providers Care Natural Gas Plant Technician Name Role Phone Hans Webb Primary Care Provider REASON FOR VISIT Message MEDICATIONS Medication SIG (Take, Route, Frequency, Duration) Notes Start Date End Date Status Sulfamethoxazole-Trimethop rim 800-160 MG 1 tablet Orally Twice a day for 7 days 04/17/2024 Active Encounters Encounter Location Date Provider Diagnosis Hans Webb DO, [facility] [address] [place], [place] [phone] 04/17/2024 Hans Webb PLAN OF TREATMENT Medication Medication Name Sig Start Date Stop Date Notes Sulfamethoxazole-Trimethopri m 800-160 MG 1 tablet Orally Twice a day for 7 days 04/17/2024
--- OUTSIDE RECORDS SUMMARY | 2024-05-29 15:27 | XMS_ITS | Patient Health Record ---
Author Organization [facility] Address [address] [place] [address] Care Team Providers Care Communication And Outreach Manager Name Role Phone Tracey (RETIRED) Hans PRICE Primary Care Provid er Unavailable Hans Tyler Unavailable [phone] ALLERGIES Allergen (clinical drug ingredient) Drug/Non Drug Allergy documented on EMR Reaction Allergy Type Onset Date Status penicillin G Penicillin G Sodium Unknown Drug Allergy Active azathioprine Azathioprine (uncoded) hepatitis Allergy Active REASON FOR REFERRAL No Information MEDICATIONS Medication SIG (Take, Route, Frequency, Duration) Notes Start Date End Date Status Multi Vitamin/Minerals - 1 Orally QD Active Xhmhppgf-Uruwg-Ydzirdawe c Acid 10-5-3.3 MG as directed Orally [...] reflux (K21.9) Active confirmed Esophageal refl ux (706144582) Problem Epigastric abdominal pain (R10.13) Active confirmed Epigastric pain (56737878) Problem Encounter for screening for malignant neoplasm of colon (Z12.11) Active confirmed 319643851 Problem History of adenomatous polyp of colon (Z86.010) Active confirmed 304987719 Problem Weight loss (R63.4) Active confirmed 84546758 Problem Crohn's disease of colon (K50.10) Active confirmed Crohn's di sease of colon (95090095) Problem Colon adenomas (D12.6) Active confirmed 877526444 Problem Hiatal hernia (K44.9) Active confirmed Hiatal hernia (90259908) Problem Crohns colitis, without complications (K50.10) Active confirmed 72621777 Problem Exposure to hepatitis C (Z20.5) Active confirmed 364662569 Problem Constipation, unspecified constipation type (K59.00) Active confirmed 57063469 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 [address] [place] [address] [phone] [id number] LI GREENE Self - patient is the [...] did have a colonoscopy in 2008 at [facility] with Dr. Carlos, which raised a suspicion [...] 01/2011 in the distal ascending colon Denies [place],DM,CVA,Lung disease,renal dise ase Hypothroidism--thyroid nodules--Dr. Petra obando Hyperlipidemia Colonoscopy in 08/2012--no ac tive colitis-1 small tubular adenoma--no dysplasia Had a neg. U/S of the abdomen and normal CBC and LFT's in 03/2014 in [place] Colonoscopy in 07/2014--no active colitis , no adenomas, no dysplasia Negative laboratories for celiac disease in 2011 and in 2014 Osteoarthritis-right knee UTI's Negative Hepatitis C antibody Colonoscopy 05/2017--minimal colitis, 1 s mall tubular adenoma, no dysplasia Pseudocholinesterase deficie ncy--found during her 08/2018 thyroid surgery at [facility] Colonoscopy 06/2018--no activ e colitis, no [...]
== END 2024-05-29 11:30 | disposition home or self-care (01) ==
LOC: HO.LAB 11:29
PROVIDERS: PCP Internal Medicine; Visit Provider Psychiatry & Neurology Neurology
DX: G31.84 Mild cognitive impairment of uncertain or unknown etiology (principal)
CPT/HCPCS: 36415; 82607

== ENCOUNTER 2024-06-13 18:19 | Outpatient (REF) | payer MEDICARE, SELFPAY ==
--- NOTE | ~2024-06-13 | MR_ITS ---
CLINICAL HISTORY: MEMORY CHANGES MR Brain without gadolinium Comparison: None Findings: No restricted diffusion. No intracranial mass or hemorrhage. Mild global volume loss with scattered subcortical and periventricular T2 hyperintensity suggesting chronic microangiopathy. No midline shift. No hydrocephalus. Vascular flow voids are intact. Orbital contents are unremarkable. The sinuses and mastoid air cells are clear. No focal bone lesion. IMPRESSION: No acute findings. Mild global volume loss with lmtp-hx-nsapwlmv changes suggestive of chronic microangiopathy. This document has been electronically signed by: Marianela Thompson MD on 06/17/2024 08:57:09
--- OUTSIDE RECORDS SUMMARY | 2024-06-13 18:22 | XMS_ITS | Continuity of Care Document ---
Author Organization [facility] [address] [place] [address] Phone [phone] Care Team Providers Care Pest Management Supervisor Name Role Phone Hans Webb M.D. Care Team Information Recei brooke [phone] Problems Active Problems Provider Date Hypercholesterolemia SHARON [...] Medications SIG Qnty Indications Ordering Provider Date Jirhww20jc/ml Soln Prefill Syringe Inject 60mg every 6 months 1ml M81.0 Rica Hickman M.D. 04/26/2023 Ferrous Wjgxnom133(65Fe) mg Tablets Take 1 Tablet By Mouth Twice A Day Hans Webb M.D. Atorvastatin Dzostjw99tg Tablets Take 1 Tablet By Mouth AT [...] 20 pg/mL 15-65 Laboratory test finding 04/24/2023 [facility] TSH With Reflex To FT4 <pending> Calcium <pending> 25Oh Vitamin D <pending> PTH, Intact <pending> 1 Vitamin D deficiency has been defined by the Irons of Medicine and an Endocrine Society practice guideline as a level of serum 25-OH vitamin D less than 20 ng/mL (1,2). The Endocrine Society went on to further define vitamin D insufficiency as a level between 21 and 29 ng/mL (2). 1. IOM ([place] of Medicine). 2010. Dietary reference intakes for [...]
--- OUTSIDE RECORDS SUMMARY | 2024-06-13 18:23 | XMS_ITS | Patient Health Record ---
Author Organization [facility] Address [address] [place] [address] Care Team Providers Care Rig Builder Name Role Phone Tracey (RETIRED) Hans PRICE Primary Care Provid er Unavailable Hans Tyler Unavailable [phone] ALLERGIES Allergen (clinical drug ingredient) Drug/Non Drug Allergy documented on EMR Reaction Allergy Type Onset Date Status penicillin G Penicillin G Sodium Unknown Drug Allergy Active azathioprine Azathioprine (uncoded) hepatitis Allergy Active REASON FOR REFERRAL No Information MEDICATIONS Medication SIG (Take, Route, Frequency, Duration) Notes Start Date End Date Status Multi Vitamin/Minerals - 1 Orally QD Active Zmsbyewf-Dvsdd-Ygjdlmhdb c Acid 10-5-3.3 MG as directed Orally [...] reflux (K21.9) Active confirmed Esophageal refl ux (993721753) Problem Epigastric abdominal pain (R10.13) Active confirmed Epigastric pain (67752521) Problem Encounter for screening for malignant neoplasm of colon (Z12.11) Active confirmed 957993037 Problem History of adenomatous polyp of colon (Z86.010) Active confirmed 294773211 Problem Weight loss (R63.4) Active confirmed 80162246 Problem Crohn's disease of colon (K50.10) Active confirmed Crohn's di sease of colon (66086130) Problem Colon adenomas (D12.6) Active confirmed 961681189 Problem Hiatal hernia (K44.9) Active confirmed Hiatal hernia (60180821) Problem Crohns colitis, without complications (K50.10) Active confirmed 18079938 Problem Exposure to hepatitis C (Z20.5) Active confirmed 027204586 Problem Constipation, unspecified constipation type (K59.00) Active confirmed 62791507 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 Bentley esophag us (357347748) Problem Crohn's disease of large intestine without complication (K50.10) Active confirmed 0516299 Problem Fatigue, unspecified type (R53.83) Active confirmed 92293964 Problem Gastric ulcer (K25.9) Active confirmed Gastric ulcer (677179987) Problem Diverticulosis of colon (K57.30) Active confirmed Diverticulosi s of colon (785540160) PLAN OF TREATMENT Pending Test Test Name [...] Insured Coverage Start Date Coverage End Date [facility] [address] [place] [address] [id number] LI GREENE Self - patient is the [...] did have a colonoscopy in 2008 at [facility] with Dr. Carlos, which raised a [...] 01/2011 in the distal ascending colon Denies ID,DM,CVA,Lung disease,renal dise ase Hypothroidism--thyroid nodules--Dr. Petra obando Hyperlipidemia Colonoscopy in 08/2012--no ac tive colitis-1 small tubular adenoma--no dysplasia Had a neg. U/S of the abdomen and normal CBC and LFT's in 03/2014 in [place] Colonoscopy in 07/2014--no active colitis , no adenomas, no dysplasia Negative laboratories for celiac disease in 2011 and in 2014 Osteoarthritis-right knee UTI's Negative Hepatitis C antibody Colonoscopy 05/2017--minimal colitis, 1 [address] tubular adenoma, no dysplasia Pseudocholinesterase deficie ncy--found during her 08/2018 thyroid surgery at [facility] Colonoscopy 06/2018--no activ e colitis, no [...]
--- OUTSIDE RECORDS SUMMARY | 2024-06-13 18:23 | XMS_ITS ---
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
--- OUTSIDE RECORDS SUMMARY | 2024-06-13 18:24 | XMS_ITS ---
Author Organization Hans Webb DO, [facility] Address [address] [place], [place] [phone] Care Team Providers Care Wireless Sales Consultant Name Role Phone Hans Webb Primary Care Provider [phone] REASON FOR VISIT Message MEDICATIONS Medication SIG (Take, Route, Frequency, Duration) Notes Start Date End Date Status Sulfamethoxazole-Trimethop rim 800-160 MG 1 tablet Orally Twice a day for 7 days 04/17/2024 Active Encounters Encounter Location Date Provider Diagnosis Hans Webb DO, [facility] [address] [place], [place] [id number] 04/17/2024 Hans Webb PLAN OF TREATMENT Medication Medication Name Sig Start Date Stop Date Notes Sulfamethoxazole-Trimethopri m 800-160 MG 1 tablet Orally Twice a day for 7 days 04/17/2024
== END 2024-06-13 18:20 | disposition home or self-care (01) ==
LOC: HO.MRI 18:19
PROVIDERS: Visit Provider Psychiatry & Neurology Neurology
DX: G31.84 Mild cognitive impairment of uncertain or unknown etiology (principal)
CPT/HCPCS: 70551

== ENCOUNTER → 2024-06-13 18:34 | Outpatient (BNV) | payer MEDICARE, SELFPAY | PROVIDERS: Visit Provider Radiology Diagnostic Radiology | DX: G31.84 Mild cognitive impairment of uncertain or unknown etiology (principal) | CPT/HCPCS: 70551 ==

== ENCOUNTER 2024-06-17 10:12 | Outpatient (AMB) | payer MEDICARE, SELFPAY ==
--- NOTE | 2024-06-17 10:13 | A.OFFPC_ITS ---
Vital Signs 06/17/24 10:21 Height 4 ft 11.5 in Weight 108 lb BMI 21.4 BP 115/54 L Blood Pressure Location Rt brachial Pulse 81 Pulse Source Pulse Oximeter Temp 96.6 F L Pulse Oximetry (%) 99 Intake Visit Reasons: 2 month follow up Intake Note: no other issues Allergies penicillin Allergy (Severe, Uncoded 06/17/24 10:41) Hives succinylcholine Allergy (Severe, Uncoded 06/17/24 10:41) pseudocholinesterase deficiency Medication List - Last Reconciled 06/17/24 by Stacie De La Rosa PA-C alprazolam 0.5 mg PO DAILY PRN atorvastatin 40 mg PO BEDTIME calcium carbonate 500 mg PO DAILY cholecalciferol (vitamin D3) (Vitamin D3) 25 mcg PO DAILY cyanocobalamin (vitamin B-12) 3,000 mcg PO DAILY ferrous sulfate 325 mg PO BID hydrocortisone 2.5% 1 appl topical BID-TID PRN mesalamine (Lialda) 2.4 grams PO BID multivitamin 1 tab PO DAILY Saccharomyces boulardii (Probiotic (S.boulardii)) 250 mg PO DAILY vitamins A,C,R-jfez-uywvew 4,296 mcg-226 mg-90 mg (PreserVision AREDS) 1 cap PO DAILY PFSH Medical History Ulcerative colitis Hypothyroidism Tubular adenoma Thyroid nodule Iron deficiency anemia Osteoarthritis IBD (inflammatory bowel disease) Crohn's colitis Pseudocholinesterase deficiency Hypercholesteremia Surgical History Hx of colonoscopy (~09/13/21) History of esophagogastroduodenoscopy (EGD) Hx of oral surgery Hx of partial thyroidectomy History of tonsillectomy Family History Father Lung disease Mother Bone disease Diverticular disease Family/Other Thyroid condition Stomach cancer Social History Alcohol intake: never Patient Tobacco Use Status: Never used Tobacco Physical exam (Primary Care) Vital Signs: Last Vital Signs Temp 96.6 F L 06/17/24 10:21 Pulse 81 06/17/24 10:21 BP 115/54 L 06/17/24 10:21 Pulse Ox 99 06/17/24 10:21 BMI result Body Mass Index 21.4 Tobacco/Smoking Status: Tobacco use Status Patient Tobacco Use Status Never used Tobacco 06/17/24 10:14 Coding Level of Care Code New Pt Level 4 (05849) Complex EM visit Add On G2211 Diagnoses Tubular adenoma D36.9 Thyroid nodule E04.1 Iron deficiency anemia D50.9 Osteoarthritis M19.90 Hypercholesteremia E78.00 Hypothyroidism E03.9 Ulcerative colitis K51.90 Crohn's colitis K50.10 IBD (inflammatory bowel disease) K52.9 Pseudocholinesterase deficiency E88.09 Hypertension I10 Assessment & Plan Assessment & Plan (1) Tubular adenoma: Code(s): D36.9 - Benign neoplasm, unspecified site Category: Medical Plan: Patient being followed by Dr. Cleaning at [facility]. Last colonoscopy was in 2021. Condition is chronic and stable continue to monitor. (2) Thyroid nodule: Code(s): E04.1 - Nontoxic single thyroid nodule Category: Medical Plan: Patient being followed by provider at [facility] last ultrasound 4 years ago. Condition is chronic and stable with any to monitor. (3) Iron deficiency anemia: Code(s): D50.9 - Iron deficiency anemia, unspecified Category: Medical Plan: Condition is chronic and stable with any to monitor. (4) Osteoarthritis: Comment: RIGHT KNEE Code(s): M19.90 - Unspecified osteoarthritis, unspecified site Category: Medical Plan: Condition is chronic and stable with any to monitor. (5) Hypercholesteremia: Code(s): E78.00 - Pure hypercholesterolemia, unspecified Category: Medical Plan: Patient currently on atorvastatin 40 mg daily. Condition is chronic and stable continue to monitor. (6) Hypothyroidism: Code(s): E03.9 - Hypothyroidism, unspecified Category: Medical Plan: Last thyroid levels were within normal limits. Patient not on any thyroid medication at this time. Condition is chronic and stable continue to monitor. (7) Ulcerative colitis: Code(s): K51.90 - Ulcerative colitis, unspecified, without complications Category: Medical Plan: Patient currently on vitamin-D, vitamin B12, ferrous sulfate, Lialda, multivitamin, probiotic, vitamin a, C, E, zinc, copper. Patient being followed by GI at [facility] with last colonoscopy in 2021. Condition is chronic and stable continue to monitor. (8) Crohn's colitis: Code(s): K50.10 - Crohn's disease of large intestine without complications Category: Medical Plan: Patient currently on vitamin-D, vitamin B12, ferrous sulfate, Lialda, multivitamin, probiotic, vitamin a, C, E, zinc, copper. Patient being followed by GI at [facility] with last colonoscopy in 2021. Condition is chronic and stable continue to monitor. (9) IBD (inflammatory bowel disease): Code(s): K52.9 - Noninfective gastroenteritis and colitis, unspecified Category: Medical Plan: Patient currently on vitamin-D, vitamin B12, ferrous sulfate, Lialda, multivitamin, probiotic, vitamin a, C, E, zinc, copper. Patient being followed by GI at [facility] with last colonoscopy in 2021. Condition is c hronic and stable continue to monitor. (10) Pseudocholinesterase deficiency: Code(s): E88.09 - Other disorders of plasma-protein metabolism, not elsewhere classified Category: Medical Plan: Patient currently on vitamin-D, vitamin B12, ferrous sulfate, Lialda, multivitamin, probiotic, vitamin a, C, E, zinc, copper. Patient being followed by GI at [facility] with last colonoscopy in 2021. Condition is chronic and stable continue to monitor. (11) Hypertension: Code(s): I10 - Essential (primary) hypertension Category: Medical Plan: Blood pressure and normal range. No medications required. Condition is chronic and stable continue to monitor. Plan Plan - Send a greasy ointment for eczema to [facility] on [address] to replace ineffective cream treatment. - Schedule next colonoscopy, anticipated due to biennial routine. - Conduct comprehensive blood work at her next visit to reassess cholesterol levels, CBC, CMP, magnesium, TSH, vitamin , and folate levels. - Fasting lab work recommended before next appointment. - Discontinue current amoxicillin due to dizziness. Orders: Orders C Reactive Protein Today Z00.00 - Encounter for general adult medical examination without abnormal findings Lipid Panel Today Z00.00 - Encounter for general adult medical examination without abnormal findings Liver Panel Today Z00.00 - Encounter for general adult medical examination without abnormal findings TSH reflex Free T4 Today Z00.00 - Encounter for general adult medical examination without abnormal findings Vitamin B1 Today Z00.00 - Encounter for general adult medical examination without abnormal findings Vitamin B12 and Folate Today Z00.00 - Encounter for general adult medical examination without abnormal findings Vitamin D 25-OH Total Today Z00.00 - Encounter for general adult medical examination without abnormal findings Complete Blood Count Auto Diff Today Z00.00 - Encounter for general adult medical examination without abnormal findings Comprehensive [place]. Panel Fast Today Z00.00 - Encounter for general adult medical examination without abnormal findings Magnesium Today Z00.00 - Encounter for general adult medical examination without abnormal findings Hemoglobin A1c Today Z00.00 - Encounter for general adult medical examination without abnormal findings Medications: New hydrocortisone 2.5% 1 appl topical BID-TID PRN 454 grams 0RF itching Patient Instructions: Patient Instructions - shipping support the prescribed ointment for eczema from [facility] on [address]. - Discontinue amoxicillin due to dizziness and report any further episodes. - Prepare for upcoming blood tests by fasting as directed. - Schedule and ensure completion of the next colonoscopy as per routine screening. - Continue taking atorvastatin to manage cholesterol and follow up on blood work for cholesterol monitoring. - Use xalalopram as needed for anxiety, ensuring no overuse. - Follow up in six months unless advised otherwise or experiencing acute issues. - Contact the office for concerns or any worsening symptoms. Scribe Plan - Not visible on output: History of Present Illness The patient is a 78-year-old female presenting with a 2 month follow-up visit. She reports occasional dizziness, particularly after taking amoxicillin for a previous urinary tract infection. The dizziness was noted every morning, leading her to cease the medication. Her history of ulcerative colitis necessitates occasional use of Lealda for symptomatic relief. She manages her hypercholesterolemia with atorvastatin 40 mg, prescribed after elevated cholesterol levels were observed at 225 mg/dL with an LDL of 145 mg/dL last year. She also has a background of inflammatory bowel disease and iron deficiency anemia. Anxiety management involves intermittent use of alprazolam as required. A past thyroid nodule has been monitored, with an ultrasound conducted approximately four years ago, and has been followed by a provider at [facility]. She has had tubular adenoma in the intestine, which led to biennial colonoscopies, with the last occurrence approximately two years ago. The patient experiences eczema, predominantly on her legs, and previously used betamethasone cream with limited effect. Social History - Lives with - Has a son who visits on weekends - No need for nursing or PACKAGE DESIGNER support at home - Drives independently without difficulty Review of Systems - General: Denies recent falls. - Neurological: Reports dizziness after amoxicillin intake; Denies numbness in hands or feet. - Psychiatric: Reports anxiety managed with xalalopram as needed. - Dermatological: Reports leg itching due to dryness and eczema. Physical Exam Appearance: Alert. Oriented X3. No acute distress. Head: Normal external exam. Normocephalic. Atraumatic. Eyes: Pupils are equal, round, and reactive to light. Extraocular movements intact. Conjunctiva and sclera normal. Eyelids normal. Ears: External auditory canal normal. Tympanic membranes normal. Throat: Pharynx normal. Uvula midline. Moist mucous membranes. Neck: Normal inspection. Neck supple. Full range of motion. No adenopathy. Thyroid Normal. No meningeal signs. No neck mass noted. Cardiovascular: Normal heart rate and rhythm. Heart sound normal. No murmurs noted. Pulses normal throughout. Respiratory: No respiratory distress. Painless inspiration. Breath sounds normal. No wheezes/rales/rhonchi noted. Chest nontender. No accessory muscle usage noted or decreased air movement noted. Abdomen: Soft and nontender. Bowel sounds normal in all 4 quadrants. No distention noted. No organomegaly noted. No visible injury noted. Back: No costovertebral angle tenderness. Full range of motion noted. Skin: Skin warm and dry. Normal skin color. Normal skin turgor. No rashes/lesions/lacerations noted. Extremities: No lower extremity edema. Extremities exhibit normal range of motion. Extremities nontender. Neuro: Oriented X 3. No motor deficit. No sensory deficit. Reflexes normal. Results - Labs: White blood cell count, kidney function, calcium, iron levels, liver enzymes previously within normal limits. Elevated cholesterol with past readings of 225 mg/dL and LDL at 145 mg/dL. - Other screenings not specified. Plan - Send a greasy ointment for eczema to [facility] on [address] to replace ineffective cream treatment. - Schedule next colonoscopy, anticipated due to biennial routine. - Conduct comprehensive blood work at her next visit to reassess cholesterol levels, CBC, CMP, magnesium, TSH, vitamin , and folate levels. - Fasting lab work recommended before next appointment. - Discontinue current amoxicillin due to dizziness. Patient was informed and verbally consented to the use of an ambient scribe for clinic note documentation during this visit. Discussion Notes During our discussion, I addressed each of the patient's ongoing medical issues and formulated an appropriate management plan. For her dizziness related to antibiotic use, discontinuation of amoxicillin was advised. Her hypercholesterolemia requires monitoring, supported by atorvastatin therapy, with repeat lipid panels planned. We discussed options for eczema management, leading to the recommendation of an ointment formulation for superior skin protection. Regarding her gastrointestinal surveillance, I reminded her of timely follow-up for her colonoscopy and, without immediate thyroid concerns, opted against another ultrasound until necessary. I emphasized the importance of a comprehensive blood panel to keep other health markers in check and prepared her for the fasting requirement. Lastly, we reviewed her anxiety management strategy, affirming occasional xalalopram use as needed. Patient Instructions - shipping support the prescribed ointment for eczema from [facility] on [address]. - Discontinue amoxicillin due to dizziness and report any further episodes. - Prepare for upcoming blood tests by fasting as directed. - Schedule and ensure completion of the next colonoscopy as per routine screening. - Continue taking atorvastatin to manage cholesterol and follow up on blood work for cholesterol monitoring. - Use xalalopram as needed for anxiety, ensuring no overuse. - Follow up in six months unless advised otherwise or experiencing acute issues. - Contact the office for concerns or any worsening symptoms.
[2024-06-17 10:21] VITALS: BP 115/54; PULSE 81; TEMP 35.9; O2SAT 99; BMI 21.4
--- OUTSIDE RECORDS SUMMARY | 2024-06-17 11:09 | XMS_ITS ---
Author Organization Hans Webb DO, FACP Address [address] [place] [phone] Care Team Providers Care Transit Survey Worker Name Role Phone Tracey Hans Primary Care Provider [phone] ALLERGIES No Known Allergies RESULTS Component Value Reference Range Notes Urinalysis and Microscopic Reviewed date:04/14/2024 01:43:48 PM Interpretation:Abnormal Performing Lab:[facility], [address] [place] [id number] Notes/Report: Color Urine Yellow Appearance Urine Cloudy PH 5.5 5.0-9.0 Glucose Urine UA Negative Negative mg/dL Urine Blood Trace Negative Specific [place] - Urine 1.020 1.005-1.025 Urine Protein Negative Neg-Trace mg/dL Urine Ketones Negative Negative mg/dL Nitrite Urine Negative Negative Leukocyte Esterase Urine Negative Negative RBC Urine 3-5 0-2 /HPF WBC Urine 0-5 0-5 /HPF Squamous Epithelial Cell Urine 0-2 0-2 /HPF Bacteria Urine 1+ None Seen Hyaline Casts Urine 0-2 0-2 /LPF Urine Culture Reviewed date:04/17/2024 12:26:05 PM Interpretation:Positive Performing Lab:[address] [phone] Notes/Report: O:ESCCOL Escherichia coli Urine Culture Quant [...] Diagnosis Hans Webb DO, [facility] [address] [place], [place] [phone] 04/08/2024 Hans Webb Hypercholesterolemia E78.00 ; Ulcerative [...] General Examination GENERAL APPEARANCE: in no ac platinum distress, well developed, well nourished HEAD: normocephalic, atrau matic HEART: no murmurs, regular rate and rhythm, S1, S2 normal LUNGS: clear to auscultatio n bilaterally ABDOMEN: normal, bowel sounds present, soft, nontender, nondistended SKIN: warm and dry EXTREMITIES: no edema PSYCH: alert, oriented, cog nitive function intact
--- OUTSIDE RECORDS SUMMARY | 2024-06-17 11:09 | XMS_ITS ---
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
--- OUTSIDE RECORDS SUMMARY | 2024-06-17 11:09 | XMS_ITS ---
Author Organization [facility] Address [address] [place], [place] [id number] Care Team Providers Care Water Purifier Operator Name Role Phone Hans Webb Primary Care Provider [phone] REASON FOR VISIT 2 month f/u Encounters Encounter Location Date Provider Diagnosis Hans Webb DO [address] [id number] 06/17/2024 Hans Webb PLAN OF TREATMENT No Information
--- OUTSIDE RECORDS SUMMARY | 2024-06-17 11:09 | XMS_ITS | Patient Health Record ---
Author Organization [facility] Address [address] [place] [address] Care Team Providers Care Linen Room Attendant Name Role Phone Tracey (RETIRED) Hans PRICE Primary Care Provid er Unavailable Hans Tyler Unavailable [phone] ALLERGIES Allergen (clinical drug ingredient) Drug/Non Drug Allergy documented on EMR Reaction Allergy Type Onset Date Status penicillin G Penicillin G Sodium Unknown Drug Allergy Active azathioprine Azathioprine (uncoded) hepatitis Allergy Active REASON FOR REFERRAL No Information MEDICATIONS Medication SIG (Take, Route, Frequency, Duration) Notes Start Date End Date Status Multi Vitamin/Minerals - 1 Orally QD Active Kyyhvars-Oisib-Yzfohmsjb c Acid 10-5-3.3 MG as directed Orally [...] reflux (K21.9) Active confirmed Esophageal refl ux (925730710) Problem Epigastric abdominal pain (R10.13) Active confirmed Epigastric pain (74243628) Problem Encounter for screening for malignant neoplasm of colon (Z12.11) Active confirmed 245990067 Problem History of adenomatous polyp of colon (Z86.010) Active confirmed 760844433 Problem Weight loss (R63.4) Active confirmed 02517339 Problem Crohn's disease of colon (K50.10) Active confirmed Crohn's di sease of colon (35241682) Problem Colon adenomas (D12.6) Active confirmed 605577278 Problem Hiatal hernia (K44.9) Active confirmed Hiatal hernia (26435108) Problem Crohns colitis, without complications (K50.10) Active confirmed 46042006 Problem Exposure to hepatitis C (Z20.5) Active confirmed 876657476 Problem Constipation, unspecified constipation type (K59.00) Active confirmed 88575888 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 Bentley esophag us (262856542) Problem Crohn's disease of large intestine without complication (K50.10) Active confirmed 3522129 Problem Fatigue, unspecified type (R53.83) Active confirmed 40886451 Problem Gastric ulcer (K25.9) Active confirmed Gastric ulcer (415770386) Problem Diverticulosis of colon (K57.30) Active confirmed Diverticulosi s of colon (847244286) PLAN OF TREATMENT Pending Test Test Name [...] Insured Coverage Start Date Coverage End Date [facility] [address] [place] [address] [id number] LI GREENE Self - patient is the [...] did have a colonoscopy in 2008 at [facility] with Dr. Carlos, which raised a suspicion [...] 01/2011 in the distal ascending colon Denies NM,DM,CVA,Lung disease,renal dise ase Hypothroidism--thyroid nodules--Dr. Petra obando Hyperlipidemia Colonoscopy in 08/2012--no ac tive colitis-1 small tubular adenoma--no dysplasia Had a neg. U/S of the abdomen and normal CBC and LFT's in 03/2014 in [place] Colonoscopy in 07/2014--no active colitis , no adenomas, no dysplasia Negative laboratories for celiac disease in 2011 and in 2014 Osteoarthritis-right knee UTI's Negative Hepatitis C antibody Colonoscopy 05/2017--minimal colitis, 1 s mall tubular adenoma, no dysplasia Pseudocholinesterase deficie ncy--found during her 08/2018 thyroid surgery at [facility] Colonoscopy 06/2018--no activ e colitis, no dysplasia [...]
--- OUTSIDE RECORDS SUMMARY | 2024-06-17 11:09 | XMS_ITS ---
Author Organization Hans Webb DO, [facility] Address [address] [place], [place] [id number] Care Team Providers Care Assistant Laboratory Director Name Role Phone Hans Webb Primary Care Provider REASON FOR VISIT Message MEDICATIONS Medication SIG (Take, Route, Frequency, Duration) Notes Start Date End Date Status Sulfamethoxazole-Trimethop rim 800-160 MG 1 tablet Orally Twice a day for 7 days 04/17/2024 Active Encounters Encounter Location Date Provider Diagnosis Hans Webb DO, [facility] [address] [place], [place] [id number] 04/17/2024 Hans Webb PLAN OF TREATMENT Medication Medication Name Sig Start Date Stop Date Notes Sulfamethoxazole-Trimethopri m 800-160 MG 1 tablet Orally Twice a day for 7 days 04/17/2024
== END 2024-06-17 10:42 | disposition home or self-care (01) ==
LOC: HO.HMCSH 10:12
PROVIDERS: PCP Internal Medicine; Visit Provider Physician Assistant Medical
DX: D36.9 Benign neoplasm, unspecified site (principal); E04.1 Nontoxic single thyroid nodule; D50.9 Iron deficiency anemia, unspecified; M19.90 Unspecified osteoarthritis, unspecified site; E78.00 Pure hypercholesterolemia, unspecified; E03.9 Hypothyroidism, unspecified; K51.90 Ulcerative colitis, unspecified, without complications; K50.10 Crohn's disease of large intestine without complications; K52.9 Noninfective gastroenteritis and colitis, unspecified; E88.09 Other disorders of plasma-protein metabolism, not elsewhere classified; I10 Essential (primary) hypertension

== ENCOUNTER → 2024-06-17 10:12 | Outpatient (BNVA) | payer MEDICARE, SELFPAY | PROVIDERS: PCP Internal Medicine; Visit Provider Physician Assistant Medical | DX: D36.9 Benign neoplasm, unspecified site (principal); E04.1 Nontoxic single thyroid nodule; D50.9 Iron deficiency anemia, unspecified; M19.90 Unspecified osteoarthritis, unspecified site; E78.00 Pure hypercholesterolemia, unspecified; E03.9 Hypothyroidism, unspecified; K50.10 Crohn's disease of large intestine without complications; K52.9 Noninfective gastroenteritis and colitis, unspecified; E88.09 Other disorders of plasma-protein metabolism, not elsewhere classified; I10 Essential (primary) hypertension | CPT/HCPCS: 99202 ==

== ENCOUNTER 2024-07-01 23:10 | Emergency (ER) | payer MEDICARE, SELFPAY ==
--- NOTE | ~2024-07-01 | XR_ITS ---
CLINICAL HISTORY: knee pain after a fall RIGHT KNEE X-RAYS COMPARISON: None. FINDINGS: A total of 4 views of the right knee were obtained. An intra-articular acute fracture is noted involving the patella, best seen on the lateral view. There is associated minimal fracture fragment diastasis. Associated large suprapatellar joint effusion is present. No definite evidence of a dislocation. There are mild degenerative changes within the patellofemoral joint. There are moderate degenerative changes within the lateral compartment of the right knee. No definite tibial plateau fracture. Remainder of the right knee is unremarkable. IMPRESSION: 1. Acute and intra-articular fracture of the patella, with an associated large suprapatellar joint effusion. 2. Degenerative changes are noted in the right knee. This document has been electronically signed by: Avery Molina M.D. on 07/02/2024 01:47:33
[2024-07-02] VITALS: BP 149/74; PULSE 77; RESP 16; TEMP 36.8; O2SAT 97; BMI 21.0
[2024-07-02] MEDS: Acetaminophen 325 MG TABLET 650 MG PO (03:34)
[2024-07-02 03:42] VITALS: BP 118/69; PULSE 79; RESP 16; TEMP 36.7; O2SAT 98
--- NOTE | 2024-07-02 04:26 | ED_ITS ---
HPI - Extremity Injury (Lower) General Chief Complaint: Extremity Injury, Lower Stated Complaint: right knee inj after fall Time Seen by Provider: 07/02/24 04:24 Source: patient Mode of arrival: ambulatory Limitations: no limitations History of Present Illness ED Provider: Dr. America Cortes HPI Narrative: Patient comes to the emergency room complaining of knee pain. Yesterday patient states that she fell outside [facility]. Patient states that she landed on her knee, denies hitting her head or losing consciousness, patient does not use any blood thinners. Patient states this was a mechanical fall. Denies chest pain shortness of breath or near syncopal episodes. Related Data Home Medications ?Medication ?Instructions ?Recorded ?Confirmed cholecalciferol (vitamin D3) 25 25 mcg PO DAILY 03/24/20 06/17/24 mcg (1,000 unit) capsule (Vitamin D3) multivitamin 1 tab PO DAILY 03/24/20 06/17/24 ferrous sulfate 325 mg (65 mg 325 mg PO BID 01/04/23 06/17/24 iron) tablet calcium carbonate 500 mg PO DAILY 07/31/23 06/17/24 Saccharomyces boulardii 250 mg 250 mg PO DAILY 06/17/24 06/17/24 capsule (Probiotic (S.boulardii)) alprazolam 0.5 mg tablet 0.5 mg PO DAILY PRN 06/17/24 06/17/24 atorvastatin 40 mg tablet 40 mg PO BEDTIME 06/17/24 06/17/24 cyanocobalamin (vitamin B-12) 3,000 mcg PO DAILY 06/17/24 06/17/24 3,000 mcg capsule mesalamine 1.2 gram tablet,delayed 2.4 g PO BID 06/17/24 06/17/24 release (Lialda) vitamins A,C,E-bqzl-tpofmb 4,296 1 cap PO DAILY 06/17/24 06/17/24 mcg-226 mg-90 mg capsule (PreserVision AREDS) Previous Rx's ?Medication ?Instructions ?Recorded hydrocortisone 2.5 % topical 1 appl topical BID-TID PRN itching 06/17/24 ointment #454 grams tramadol 50 mg tablet 50 mg PO BID PRN pain #7 tabs 07/02/24 Allergies Allergy/AdvReac Type Severity Reaction Status Date / Time penicillin Allergy Severe Hives Uncoded 07/02/24 00:00 succinylcholine Allergy Severe pseudocholinesterase Uncoded 07/02/24 00:00 deficiency Review of Systems Review of Systems: Constitutional : No Weight loss, No Fever, No Chills, No Night Sweats, No Fatigue, No Malaise ENT/Mouth : No Hearing loss, No Ear Pain, No Nasal Congestion, No Sinus Pain, No Hoarseness, No sore throat, No Rhinorrhea, No Swallowing Difficulty Eyes: No Eye Pain, No Swelling, No Redness, No Foreign Body, No Discharge, No Vision Changes Cardiovascular : No Chest Pain, No SOB, No Dyspnea on Exertion, No Orthopnea, No Edema, No Palpitations Respiratory : No Cough, No Sputum, No Wheezing, No Smoke Exposure, No Dyspnea Gastrointestinal : No Nausea, No Vomiting, No Diarrhea, No Constipation, No abdominal Pain, No Hematochezia, No Melena Genitourinary : no irregular bleeding, No Dysuria, No Urinary Frequency, No Hematuria, No Urinary Incontinence, No Urgency, No Flank Pain, No Urinary Flow Changes, No Hesitancy Musculoskeletal : Complaining of right knee pain, No Myalgias, No Joint Swelling Skin : No Skin Lesions, No rash Neuro : No Weakness, No Numbness, No Paresthesias, No Loss of Consciousness, No Dizziness, No Headache Psych : No Anxiety/Panic, No Depression, No SI/HI/AH/VH, No Social Issues, Heme/Lymph: No Bruising, No Bleeding,No Lymphadenopathy Endocrine : No Polyuria, No Polydipsia, No Temperature Intolerance PMFSH Past Medical History Medical History Ulcerative colitis Hypothyroidism Tubular adenoma Thyroid nodule Iron deficiency anemia Osteoarthritis IBD (inflammatory bowel disease) Crohn's colitis Pseudocholinesterase deficiency Hypercholesteremia Surgical History Hx of colonoscopy (~09/13/21) History of esophagogastroduodenoscopy (EGD) Hx of oral surgery Hx of partial thyroidectomy History of tonsillectomy Family History Family History Father Lung disease Mother Bone disease Diverticular disease Family/Other Thyroid condition Stomach cancer Social History Social History Alcohol intake: never Patient Tobacco Use Status: Never used Tobacco Do you have a plan to hurt others: No Plan Physical Exam Vital Signs: Vital Signs: Last Vital Signs Temp 98.0 F 07/02/24 03:42 Pulse 79 07/02/24 03:42 Resp 16 07/02/24 03:42 BP 118/69 07/02/24 03:42 Pulse Ox 98 07/02/24 03:42 O2 Del Method Room Air 07/02/24 03:42 BMI result Body Mass Index 21.0 Const: Other: Appearance: Alert. Oriented X3. No acute distress. Eyes: Pupils equal, round and reactive to light. ENT: Pharynx normal. Neck: Normal inspection. Neck supple. No lymph nodes noted. No crepitus CVS: Normal heart rate and rhythm. Pulses normal. Normal S1 and S2 Respiratory: No respiratory distress. Breath sounds normal. No Wheezing. No rales Abdomen: Soft and nontender. No rigidity. No distention. Skin: Skin warm and dry. Normal skin color. Normal skin turgor. Extremities: Patient's right knee has a moderate to large effusion and swelling, mild ecchymosis.. No Lacerations. No Rash Neuro: Oriented X 3. No motor deficit. No sensory deficit. Moving all extremities. No slurred speech. CN 2 through 12 grossly intact Psych: calm, cooperative, normal affect Medications Administered Discontinued Medications Generic Name Dose Route Start Last Admin Trade Name Freq PRN Reason Stop Dose Admin Acetaminophen 650 mg 07/02/24 03:31 07/02/24 03:34 Acetaminophen 325 Mg Tablet PO 07/02/24 03:32 650 mg ONCE ONE Administration Medical Decision Making Medical Decision Making [facility] Narrative: X-rays of the knee patella showed a fracture of the patella. Patient was provided with a knee immobilizer. Provided with crutches for support, patient will follow-up with orthopedics. Differential Diagnosis Differential Diagnoses: The differential diagnosis associated with the presentation includes (Patellar fracture, patellar dislocation, knee contusion, knee dislocation) Independent Interpretation I performed an independent interpretation of an: Plain X-Ray Radiology Impression Discussion of test interpretation with radiology: I have reviewed the radiologist's reading. Radiologist Impression: FINDINGS: A total of 4 views of the right knee were obtained. An intra-articular acute fracture is noted involving the patella, best seen on the lateral view. There is associated minimal fracture fragment diastasis. Associated large suprapatellar joint effusion is present. No definite evidence of a dislocation. There are mild degenerative changes within the patellofemoral joint. There are moderate degenerative changes within the lateral compartment of the right knee. No definite tibial plateau fracture. Remainder of the right knee is unremarkable. IMPRESSION: 1. Acute and intra-articular fracture of the patella, with an associated large suprapatellar joint effusion. 2. Degenerative changes are noted in the right knee. Discharge Plan Discharge Clinical Impression: Patellar fracture Patient Disposition: Home, Self-Care Instructions: Patellar Fracture (ED) Additional Instructions: Please follow-up with your primary care physician tomorrow. If you have any worsening or new symptoms, please return to the emergency room or call 911 Prescriptions: New tramadol 50 mg tablet 50 mg PO BID PRN (Reason: pain) Qty: 7 0RF No Action multivitamin Tablet 1 tab PO DAILY cholecalciferol (vitamin D3) [Vitamin D3] 25 mcg (1,000 unit) Capsule 25 mcg PO DAILY ferrous sulfate 325 mg (65 mg iron) tablet 325 mg PO BID hydrocortisone 2.5 % ointment 1 appl topical BID-TID PRN (Reason: itching) Qty: 454 0RF atorvastatin 40 mg tablet 40 mg PO BEDTIME mesalamine [Lialda] 1.2 gram tablet,delayed release (DR/EC) 2.4 g PO BID Saccharomyces boulardii [Probiotic (S.boulardii)] 250 mg capsule 250 mg PO DAILY cyanocobalamin (vitamin B-12) 3,000 mcg capsule 3,000 mcg PO DAILY PreserVision AREDS 4,296 mcg-226 mg-90 mg capsule 1 cap PO DAILY alprazolam 0.5 mg tablet 0.5 mg PO DAILY PRN calcium carbonate 500 mg calcium (1,250 mg) tablet 500 mg PO DAILY Referrals: Alfonso Grijalva PA [Physician Band Sewer] - 07/03/24 Print Language: Bangladeshi
--- OUTSIDE RECORDS SUMMARY | 2024-07-02 04:32 | XMS_ITS | Continuity of Care Document ---
Author Organization [facility] [address] [place] [address] Phone [phone] Care Team Providers Care Doughnut Icer Machine Name Role Phone Hans Webb M.D. Care Team Information Recei brooke [phone] Problems Active Problems Provider Date Hypercholesterolemia SHARON [...] Medications SIG Qnty Indications Ordering Provider Date Wykiix73sx/ml Soln Prefill Syringe Inject 60mg every 6 months 1ml M81.0 Rica Hickman M.D. 04/26/2023 Ferrous Hjdomup537(65Fe) mg Tablets Take 1 Tablet By Mouth Twice A Day Hans Webb M.D. Atorvastatin [id number] Tablets Take 1 Tablet By Mouth AT [...] 20 pg/mL 15-65 Laboratory test finding 04/24/2023 [facility] TSH With Reflex To FT4 <pending> Calcium <pending> 25Oh Vitamin D <pending> PTH, Intact <pending> 1 Vitamin D deficiency has been defined by the [employer] and an Endocrine Society practice guideline as a level of serum 25-OH vitamin D less than 20 ng/mL (1,2). The Endocrine Society went on to further define vitamin D insufficiency as a level between 21 and 29 ng/mL (2). 1. IOM ([employer]). 2010. Dietary reference intakes for [...] pathological fracture SHARON Munoz Plan of Treatment 09/10/2023 - SHARON Munoz* E03.9 Hypothyroidism, unspecified * E04.2 Multinodular (cystic) goiter NOS * M81.0 Age-related osteoporosis without current pathological fracture Functional Status Description No Information Available Mental Status Description No Information Available Referrals Description No Information Available
--- OUTSIDE RECORDS SUMMARY | 2024-07-02 04:32 | XMS_ITS | Patient Health Record ---
Author Organization [facility] Address [address] [place] [address] Care Team Providers Care Show Horse Driver Name Role Phone Tracey (RETIRED) Hans PRICE Primary Care Provid er Unavailable Hans Tyler Unavailable [phone] Allergies Allergen (clinical drug ingredient) Drug/Non Drug Allergy documented on EMR Reaction Allergy Type Onset Date Status penicillin G Penicillin G Sodium Unknown Drug Allergy Active azathioprine Azathioprine (uncoded) hepatitis Allergy Active Reason For Referral No Information Medications Medication SIG (Take, Route, Frequency, Duration) Notes Start Date End Date Status Multi Vitamin/Minerals - 1 Orally QD Active Fpgmcnht-Mmwrn-Gvunvcncn c Acid 10-5-3.3 MG as directed Orally Act magali Canasa 1000 MG _insert 1 SUPPOSITOR Y RECTALLY AT BEDTIME NEEDED Rectal prn Not-Taking Immunizations Vaccine Route Administration Date Status Comme nts Influenza Unknown 04/03/2018 Refused Problems Problem Type SNOMED Code ICD Code Onset Dates Problem Status W/U Status Risk Notes Problem Esophageal reflux (840621741) Esophageal reflux (K21.9) Active confirmed Problem Epigastric pain (37760539) Epigastric abdominal pain (R10.13) Active confirmed Problem 903564427 Encounter for screening for malignant neoplasm of colon (Z12.11) Active confirmed Problem 934187374 History of adenomatous polyp of colon (Z86.010) Active confirmed Problem 55246709 Weight loss (R63.4) Active confirmed Problem Crohn's disease of colon (66684494) Crohn's disease of colon (K50.10) Active confirmed Problem 028564198 Colon adenomas (D12.6) Active confirmed Problem Hiatal hernia (40603286) Hiatal hernia (K44.9) Active confirmed Problem 70787333 Crohns colitis, without complications (K50.10) Active confirmed Problem 778760581 Exposure to hepatitis C (Z20.5) Active confirmed Problem 54561328 Constipation, unspecified constipation type (K59.00) Active confirmed Problem Bentley esophagus (463467825) 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 Problem 2433528 Crohn's disease of large intestine without complication (K50.10) Active confirmed Problem 14197859 Fatigue, unspecified type (R53.83) Active confirmed Problem Gastric ulcer (206292410) Gastric ulcer (K25.9) Active confirmed Problem Diverticulosis of colon (011885793) Diverticulosis of colon (K57.30) Active confirmed Plan Of Treatment Pending Test Test Name Order Date LIVER [...] Insured Coverage Start Date Coverage End Date [facility] [address] [place] [address] [id number] LI GREENE Self - patient is the insured Medical (General) History Medical History History ICD Code Inflammatory bowel [...] did have a colonoscopy in 2008 at [facility] with Dr. Carlos, which raised a [...] 01/2011 in the distal ascending colon Denies CA,DM,CVA,Lung disease,renal dise ase Hypothroidism--thyroid nodules--Dr. Petra obando Hyperlipidemia Colonoscopy in 08/2012--no ac tive colitis-1 small tubular adenoma--no dysplasia Had a neg. U/S of the abdomen and normal CBC and LFT's in 03/2014 in [place] Colonoscopy in 07/2014--no active colitis , no adenomas, no dysplasia Negative laboratories for celiac disease in 2011 and in 2014 Osteoarthritis-right knee UTI's Negative Hepatitis C antibody Colonoscopy 05/2017--minimal colitis, 1 s mall tubular adenoma, no dysplasia Pseudocholinesterase deficie ncy--found during her 08/2018 thyroid surgery at [facility] Colonoscopy 06/2018--no activ e colitis, no [...]
[2024-07-02] MEDS: traMADoL HCL 50 MG TABLET PO (04:52)
[2024-07-02 04:59] VITALS: BP 120/63; PULSE 76; RESP 16; TEMP 36.7; O2SAT 98
== END 2024-07-02 05:13 | disposition home or self-care (01) ==
PROVIDERS: Emergency Provider Emergency Medicine; PCP Internal Medicine
DX: S82.001A Unspecified fracture of right patella, initial encounter for closed fracture (principal); W18.30XA Fall on same level, unspecified, initial encounter; Y93.9 Activity, unspecified; Y92.512 Supermarket, store or market as the place of occurrence of the external cause; Y99.9 Unspecified external cause status
CPT/HCPCS: 73560; 99283; 99284

== ENCOUNTER → 2024-07-02 00:08 | Outpatient (BNV) | payer MEDICARE, SELFPAY | PROVIDERS: Visit Provider Radiology Diagnostic Radiology | DX: M25.561 Pain in right knee (principal) | CPT/HCPCS: 73560 ==

== ENCOUNTER 2024-07-07 10:27 | Outpatient (AMB) | payer MEDICARE, SELFPAY ==
--- NOTE | 2024-07-07 10:28 | A.OFFPC_ITS ---
Vital Signs 07/07/24 10:36 Height 5 ft 0.75 in Weight 106 lb BMI 20.2 BP 100/58 L Blood Pressure Location Rt brachial Pulse 86 Pulse Source Pulse Oximeter Temp 97.2 F Pulse Oximetry (%) 97 Intake Visit Reasons: knee trauma Intake Note: no other issues Allergies penicillin Allergy (Severe, Uncoded 07/07/24 10:52) Hives succinylcholine Allergy (Severe, Uncoded 07/07/24 10:52) pseudocholinesterase deficiency Medication List - Last Reconciled 07/07/24 by Stacie De La Rosa PA-C alprazolam 0.5 mg PO DAILY PRN atorvastatin 40 mg PO BEDTIME calcium carbonate 500 mg PO DAILY cholecalciferol (vitamin D3) (Vitamin D3) 25 mcg PO DAILY cyanocobalamin (vitamin B-12) 3,000 mcg PO DAILY ferrous sulfate 325 mg PO BID hydrocortisone 2.5% 1 appl topical BID-TID PRN mesalamine (Lialda) 2.4 grams PO BID multivitamin 1 tab PO DAILY Saccharomyces boulardii (Probiotic (S.boulardii)) 250 mg PO DAILY tramadol 50 mg PO BID PRN vitamins A,C,R-quaf-csghyp 4,296 mcg-226 mg-90 mg (PreserVision AREDS) 1 cap PO DAILY PFSH Medical History (Updated 07/07/24 @ 10:59 by Stacie De La Rosa PA-C) Degenerative arthritis of knee Effusion of knee joint right Right patella fracture Ulcerative colitis Hypothyroidism Tubular adenoma Thyroid nodule Iron deficiency anemia Osteoarthritis IBD (inflammatory bowel disease) Crohn's colitis Pseudocholinesterase deficiency Hypercholesteremia Surgical History Hx of colonoscopy (~09/13/21) History of esophagogastroduodenoscopy (EGD) Hx of oral surgery Hx of partial thyroidectomy History of tonsillectomy Family History Father Lung disease Mother Bone disease Diverticular disease Family/Other Thyroid condition Stomach cancer Social History Alcohol intake: never Patient Tobacco Use Status: Never used Tobacco Physical exam (Primary Care) Vital Signs: Last Vital Signs Temp 97.2 F 07/07/24 10:36 Pulse 86 07/07/24 10:36 BP 100/58 L 07/07/24 10:36 Pulse Ox 97 07/07/24 10:36 Care Plan Goal for BP management: <130/80 at Goal BMI result Body Mass Index 20.2 normal bmi Tobacco/Smoking Status: Tobacco use Status Patient Tobacco Use Status Never used Tobacco 07/07/24 10:30 Coding Level of Care Code Est Pt Level 4 (04473) Diagnoses Right patella fracture S82.001A Effusion of knee joint right M25.461 Degenerative arthritis of knee M17.9 Assessment & Plan Assessment & Plan (1) Right patella fracture: Code(s): S82.001A - Unspecified fracture of right patella, initial encounter for closed fracture Category: Medical (2) Effusion of knee joint right: Code(s): M25.461 - Effusion, right knee Category: Medical (3) Degenerative arthritis of knee: Code(s): M17.9 - Osteoarthritis of knee, unspecified Category: Medical Plan Plan Patient was informed and verbally consented to the use of an ambient scribe for clinic note documentation during this visit. 1. Arthritis With Degenerative Changes, Right Knee The arthritis accompanying the fracture is under conservative treatment, focusing on pain management and potential activity alteration. Noted the absence of urgency for aggressive arthritis treatment until the fracture heals, preserving joint function post-immobilizer. 2. Large Suprapatellar Joint Effusion, Right Knee The effusion management includes immobilization with a removable brace, ice application, and monitoring of symptoms. The orthopedics consultation will address any persistent effusion undecided by conservative care. 3. Acute Intraarticular Fracture Of The Patella, Right The fracture is being treated with a knee immobilizer and limited weight- bearing. Acetaminophen supports pain management, and follow-up with orthopedics is critical to assess healing and plan further treatment, including the potential need for surgical intervention. Discussion Notes During the visit, I explained to the patient that the current conservative m anagement approach is appropriate given the patella fracture's presentation and confirmed the ongoing monitoring schedule with orthopedics. We discussed the arthritis' presence, likely contributing to the fracture, and I emphasized that further decisions on surgical interventions will depend on the recovery trajectory and orthopedic evaluation. Pain is currently managed with acetaminophen due to limitations on stronger analgesics. I advised on mobility considerations, resorption expectations of the joint effusion, and potential longer-term arthritis management post-fracture healing. The patient's desire to continue travel plans to [place] was discussed, ensuring an appointment post- return. Patient Instructions: Patient Instructions - Continue to wear the knee immobilizer as directed. - Use ice packs to help reduce pain and manage effusion. - Take acetaminophen as needed for pain relief. - Attend the scheduled orthopedic follow-up for reassessment. - If visiting [place], carry the knee immobilizer and consult orthopedics beforehand. - Monitor for increased pain, redness, or swelling, and seek care if these occur. Scribe Plan - Not visible on output: History of Present Illness The patient is a 79-year-old female presenting with a right intraarticular patella fracture and related joint effusion. The injury resulted from a fall on a Sunday night while the patient was in a hurry during a shopping trip, resulting in a painful right knee. The fracture was confirmed at [facility] the following day, with imaging revealing a large suprapatellar effusion and degenerative joint changes. Pain is being managed with Tylenol, and a knee immobilizer is in use, though crutches provided are not regularly used. An orthopedic follow-up is scheduled. Social History - The patient was preparing to travel to [place] with her but postponed her trip due to the fall. - The patient's is indicated to have traveled ahead of her. Review of Systems - Musculoskeletal: Reports significant right knee pain secondary to a fracture. - Neurological: Denies further falls since the initial incident. - General: Reports improvement in symptoms with the use of a knee immobilizer. Physical Exam Appearance: Alert. Oriented X3. No acute distress. Head: Normal external exam. Normocephalic. Atraumatic. Eyes: Pupils are equal, round, and reactive to light. Extraocular movements intact. Conjunctiva and sclera normal. Eyelids normal. Throat: Pharynx normal. Uvula midline. Moist mucous membranes. Neck: Normal inspection. Neck supple. Full range of motion. Cardiovascular: Normal heart rate and rhythm. Heart sound normal. No murmurs noted. Pulses normal throughout. Respiratory: No respiratory distress. Painless inspiration. Back: Full range of motion noted. Skin: Skin warm and dry. Normal skin color. Normal skin turgor. Bruising noted on the shoulder. Extremities: Right knee with acute and intraarticular fracture of the patella. Associated large supraventricular joint effusion with arthritis. Degenerative changes noted in the right knee. Patient has knee immobilizer in place. Upon removal of knee immobilizer patient has joint effusion that is noted with limited range of motion due to pain and swelling and ecchymosis extending to the ankle joint. There is no hematoma noted, lesions, signs of infection. There is no lower extremity edema or calf tenderness noted. All others extremities exhibit normal range of motion nontender. Neuro: Oriented X 3. No motor deficit. No sensory deficit. Reflexes normal. Results - Imaging from [facility] indicated an acute and intraarticular fracture of the right patella with a large suprapatellar joint effusion and arthritis with degenerative changes in the right knee. Plan Patient was informed and verbally consented to the use of an ambient scribe for clinic note documentation during this visit. 1. Arthritis With Degenerative Changes, Right Knee The arthritis accompanying the fracture is under conservative treatment, focusing on pain management and potential activity alteration. Noted the absence of urgency for aggressive arthritis treatment until the fracture heals, preserving joint function post-immobilizer. 2. Large Suprapatellar Joint Effusion, Right Knee The effusion management includes immobilization with a removable brace, ice application, and monitoring of symptoms. The orthopedics consultation will address any persistent effusion undecided by conservative care. 3. Acute Intraarticular Fracture Of The Patella, Right The fracture is being treated with a knee immobilizer and limited weight- bearing. Acetaminophen supports pain management, and follow-up with orthopedics is critical to assess healing and plan further treatment, including the potential need for surgical intervention. Discussion Notes During the visit, I explained to the patient that the current conservative management approach is appropriate given the patella fracture's presentation and confirmed the ongoing monitoring schedule with orthopedics. We discussed the arthritis' presence, likely contributing to the fracture, and I emphasized that further decisions on surgical interventions will depend on the recovery trajectory and orthopedic evaluation. Pain is currently managed with acetaminoph en due to limitations on stronger analgesics. I advised on mobility considerations, resorption expectations of the joint effusion, and potential longer-term arthritis management post-fracture healing. The patient's desire to continue travel plans to [place] was discussed, ensuring an appointment post- return. Patient Instructions - Continue to wear the knee immobilizer as directed. - Use ice packs to help reduce pain and manage effusion. - Take acetaminophen as needed for pain relief. - Attend the scheduled orthopedic follow-up for reassessment. - If visiting [place], carry the knee immobilizer and consult orthopedics beforehand. - Monitor for increased pain, redness, or swelling, and seek care if these occur.
[2024-07-07 10:36] VITALS: BP 100/58; PULSE 86; TEMP 36.2; O2SAT 97; BMI 20.2
--- OUTSIDE RECORDS SUMMARY | 2024-07-07 11:47 | XMS_ITS | Patient Health Record ---
Author Organization [facility] Address [address] [place] [address] Care Team Providers Care Psychological Operations Name Role Phone Tracey (RETIRED) Hans PRICE Primary Care Provid er Unavailable Hans Tyler Unavailable [phone] Allergies Allergen (clinical drug ingredient) Drug/Non Drug Allergy documented on EMR Reaction Allergy Type Onset Date Status penicillin G Penicillin G Sodium Unknown Drug Allergy Active azathioprine Azathioprine (uncoded) hepatitis Allergy Active Reason For Referral No Information Medications Medication SIG (Take, Route, Frequency, Duration) Notes Start Date End Date Status Multi Vitamin/Minerals - 1 Orally QD Active Bxmblhmw-Ljnbv-Wzxzwalwr c Acid 10-5-3.3 MG as directed Orally Act magali Canasa 1000 MG _insert 1 SUPPOSITOR Y RECTALLY AT BEDTIME NEEDED Rectal prn Not-Taking Immunizations Vaccine Route Administration Date Status Comme nts Influenza Unknown 04/03/2018 Refused Problems Problem Type SNOMED Code ICD Code Onset Dates Problem Status W/U Status Risk Notes Problem Esophageal reflux (277830994) Esophageal reflux (K21.9) Active confirmed Problem Epigastric pain (39728620) Epigastric abdominal pain (R10.13) Active confirmed Problem 244148130 Encounter for screening for malignant neoplasm of colon (Z12.11) Active confirmed Problem 378761104 History of adenomatous polyp of colon (Z86.010) Active confirmed Problem 59748905 Weight loss (R63.4) Active confirmed Problem Crohn's disease of colon (52279432) Crohn's disease of colon (K50.10) Active confirmed Problem 915880960 Colon adenomas (D12.6) Active confirmed Problem Hiatal hernia (22058946) Hiatal hernia (K44.9) Active confirmed Problem 70549569 Crohns colitis, without complications (K50.10) Active confirmed Problem 490668675 Exposure to hepatitis C (Z20.5) Active confirmed Problem 06844798 Constipation, unspecified constipation type (K59.00) Active confirmed Problem 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 Problem 1310069 Crohn's disease of large intestine without complication (K50.10) Active confirmed Problem 59970453 Fatigue, unspecified type (R53.83) Active confirmed Problem Gastric ulcer (025519463) Gastric ulcer (K25.9) Active confirmed Problem Diverticulosis of colon (048426313) Diverticulosis of colon (K57.30) Active confirmed Plan [...] Insured Coverage Start Date Coverage End Date [facility] [address] [place] [address] [phone] [id number] [place] Self - patient is the insured [...] did have a colonoscopy in 2008 at [facility] with Dr. Carlos, which raised a [...] 01/2011 in the distal ascending colon Denies [place],DM,CVA,Lung disease,renal dise ase Hypothroidism--thyroid nodules--Dr. Petra obando Hyperlipidemia Colonoscopy in 08/2012--no ac tive colitis-1 small tubular adenoma--no dysplasia Had a neg. U/S of the abdomen and normal CBC and LFT's in 03/2014 in [place] Colonoscopy in 07/2014--no active colitis , no [...]
--- OUTSIDE RECORDS SUMMARY | 2024-07-07 11:47 | XMS_ITS | Continuity of Care Document ---
Author Organization [facility] [address] [place] [address] Phone [phone] Care Team Providers Care Bilingual Sales Assistant Name Role Phone Hans Webb M.D. Care Team Information Recei brooke [phone] Problems Active Problems Provider Date Hypercholesterolemia SHARON [...] Medications SIG Qnty Indications Ordering Provider Date Afelon75vm/ml Soln Prefill Syringe Inject 60mg every 6 months 1ml M81.0 Rica Hickman M.D. 04/26/2023 Ferrous Roefinq360(65Fe) mg Tablets Take 1 Tablet By Mouth Twice A Day Hans Webb M.D. Atorvastatin Aniwtxi40ws Tablets Take 1 Tablet By Mouth AT [...] 20 pg/mL 15-65 Laboratory test finding 04/24/2023 [facility] TSH With Reflex To FT4 <pending> Calcium <pending> 25Oh Vitamin D <pending> PTH, Intact <pending> 1 Vitamin D deficiency has been defined by the [place] [employer] and an Endocrine Society practice guideline as a level of serum 25-OH vitamin D less than 20 ng/mL (1,2). The Endocrine Society went on to further define vitamin D insufficiency as a level between 21 and 29 ng/mL (2). 1. IOM ([place] [employer]). 2010. Dietary reference intakes for [...]
== END 2024-07-07 11:16 | disposition home or self-care (01) ==
LOC: HO.HMCSH 10:27
PROVIDERS: PCP Internal Medicine; Visit Provider Physician Assistant Medical
DX: S82.001A Unspecified fracture of right patella, initial encounter for closed fracture (principal); M25.461 Effusion, right knee; M17.9 Osteoarthritis of knee, unspecified

== ENCOUNTER → 2024-07-07 10:27 | Outpatient (BNVA) | payer MEDICARE, SELFPAY | PROVIDERS: PCP Internal Medicine; Visit Provider Physician Assistant Medical | DX: S82.001D Unspecified fracture of right patella, subsequent encounter for closed fracture with routine healing (principal); M25.461 Effusion, right knee; M17.9 Osteoarthritis of knee, unspecified | CPT/HCPCS: 99212 ==

== ENCOUNTER 2024-07-09 08:32 | Outpatient (REF) | payer MEDICARE, SELFPAY ==
--- NOTE | ~2024-07-09 | XR_ITS ---
EXAMINATION: XR KNEE, RIGHT CLINICAL INFORMATION: M25.569 - Pain in unspecified knee COMPARISON: 07/02/2024. TECHNIQUE: Two views of the right knee. FINDINGS: There is an transverse nondisplaced patellar fracture, unchanged. Fracture lines are still well seen although there is minimal blunting of the fracture margins in comparison with the prior. No additional fracture or malalignment. Moderate tricompartmental joint space narrowing, most significant in the lateral compartment. Associated marginal osteophytic spurs. Chondrocalcinosis in the medial and lateral compartments. Significantly smaller joint effusion. No soft tissue abnormalities. XR/XR knee RT 2V IMPRESSION: 1. Oblique patellar fracture, essentially nondisplaced, without significant changes. 2. Chondrocalcinosis with moderate tricompartmental arthritis, worst in the lateral compartment. 3. Significantly smaller joint effusion. Electronically signed by: Kwasi Napoles MD 07/09/2024 12:41 PM EDT
--- OUTSIDE RECORDS SUMMARY | 2024-07-10 09:08 | XMS_ITS | Continuity of Care Document ---
Author Organization [facility] [address] [place] [address] Phone [phone] Care Team Providers Care Supervisor [employer] Name Role Phone Hans Webb M.D. Care Team Information Recei brooke [phone] Problems Active Problems Provider Date Hypercholesterolemia SHARON [...] Medications SIG Qnty Indications Ordering Provider Date Hklpzi61ju/ml Soln Prefill Syringe Inject 60mg every 6 months 1ml M81.0 Rica Hickman M.D. 04/26/2023 Ferrous Qcqhavq760(65Fe) mg Tablets Take 1 Tablet By Mouth Twice A Day Hans Webb M.D. Atorvastatin Xbdonps35jq Tablets Take 1 Tablet By Mouth AT [...] 15-65 TSH With Reflex To FT4 04/24/2023 [facility] TSH With Reflex To FT4 <pending> Calcium 04/24/2023 [facility] Calcium <pending> 25Oh Vitamin D 04/24/2023 [facility] 25Oh Vitamin D <pending> PTH, Intact 04/24/2023 [facility] PTH, Intact <pending> 1 Vitamin D deficiency has been defined by the [place] of [employer] and an Endocrine Society practice guideline as a level of serum 25-OH vitamin D less than 20 ng/mL (1,2). The Endocrine Society went on to further define vitamin D insufficiency as a level between 21 and 29 ng/mL (2). 1. IOM ([place] of [employer]). 2010. Dietary reference intakes for [...]
--- OUTSIDE RECORDS SUMMARY | 2024-07-10 09:08 | XMS_ITS | Patient Health Record ---
Author Organization [facility] Address [address] [place] [address] Care Team Providers Care Chair Finisher Name Role Phone Tracey (RETIRED) Hans PRICE Primary Care Provid er Unavailable Hans Tyler Unavailable [phone] Allergies Allergen (clinical drug ingredient) Drug/Non Drug Allergy documented on EMR Reaction Allergy Type Onset Date Status penicillin G Penicillin G Sodium Unknown Drug Allergy Active azathioprine Azathioprine (uncoded) hepatitis Allergy Active Reason For Referral No Information Medications Medication SIG (Take, Route, Frequency, Duration) Notes Start Date End Date Status Multi Vitamin/Minerals - 1 Orally QD Active Xbixigzr-Yjcvt-Xcgcichxd c Acid 10-5-3.3 MG as directed Orally Act magali Canasa 1000 MG _insert 1 SUPPOSITOR Y RECTALLY AT BEDTIME NEEDED Rectal prn Not-Taking Immunizations Vaccine Route Administration Date Status Comme nts Influenza Unknown 04/03/2018 Refused Problems Problem Type SNOMED Code ICD Code Onset Dates Problem Status W/U Status Risk Notes Problem Esophageal reflux (858233794) Esophageal reflux (K21.9) Active confirmed Problem Epigastric pain (74756078) Epigastric abdominal pain (R10.13) Active confirmed Problem 229109506 Encounter for screening for malignant neoplasm of colon (Z12.11) Active confirmed Problem 995778086 History of adenomatous polyp of colon (Z86.010) Active confirmed Problem 86773456 Weight loss (R63.4) Active confirmed Problem Crohn's disease of colon (58115397) Crohn's disease of colon (K50.10) Active confirmed Problem 288719937 Colon adenomas (D12.6) Active confirmed Problem Hiatal hernia (55709596) Hiatal hernia (K44.9) Active confirmed Problem 28761451 Crohns colitis, without complications (K50.10) Active confirmed Problem 259330596 Exposure to hepatitis C (Z20.5) Active confirmed Problem 43108674 Constipation, unspecified constipation type (K59.00) Active confirmed Problem 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 Carlos, which raised a suspicion [...] 01/2011 in the distal ascending colon Denies [place],DM,CVA,Lung disease,renal dise ase Hypothroidism--thyroid nodules--Dr. Petra obando Hyperlipidemia Colonoscopy in 08/2012--no ac tive colitis-1 small tubular adenoma--no dysplasia Had a neg. U/S of the abdomen and normal CBC and LFT's in 03/2014 in [place] Colonoscopy in 07/2014--no active colitis , no adenomas, no dysplasia Negative laboratories for celiac disease in 2011 and in 2014 Osteoarthritis-right knee UTI's Negative Hepatitis C antibody Colonoscopy 05/2017--minimal colitis, 1 [address] tubular adenoma, no dysplasia Pseudocholinesterase deficie ncy--found during her 08/2018 thyroid surgery at [facility] Colonoscopy 06/2018--no activ e colitis, no [...]
== END 2024-07-09 08:33 | disposition home or self-care (01) ==
LOC: HO.HOSX 08:32
PROVIDERS: Visit Provider Physician Assistant
DX: M25.561 Pain in right knee (principal); S82.001A Unspecified fracture of right patella, initial encounter for closed fracture
CPT/HCPCS: 73560; 99202

== ENCOUNTER 2024-07-09 08:55 | Outpatient (AMB) | payer MEDICARE, SELFPAY ==
--- NOTE | 2024-07-09 09:07 | MHC.OFFVIS ---
Vital Signs 07/09/24 09:11 Height 5 ft Weight 106 lb BMI 20.7 Intake Visit Reasons: New Pt - right knee pain, DOI 07/01/24 Intake Note: Jade is a 79 year old female who presents today with daughter as a new patient for a evolution of her right knee, DOI 07/01/24. Patient states that she fell outside [facility] landing on her right knee. She reports she is feeling better, she has noticed that her swelling has gone down a little bit. Patient notices when she is bending her pain is a bit worse. Patient has tried Tylenol and icing which gave her relief. IMPRESSION: 1. Acute and intra-articular fracture of the patella, with an associated large suprapatellar joint effusion. 2. Degenerative changes are noted in the right knee. Allergies penicillin Allergy (Severe, Uncoded 07/07/24 10:52) Hives succinylcholine Allergy (Severe, Uncoded 07/07/24 10:52) pseudocholinesterase deficiency HPI HPI New Pt - right knee pain, DOI 07/01/24: Details: Mr. Barragan is a 79-year-old female who presents to the office today for evaluation of a right patellar fracture that occurred on 07/01/2024. She reports that she was walking in the parking lot at [facility] and she fell landing on the right knee. She felt immediate pain and had difficulty with bending her knee. She presented to the emergency department where x-rays were obtained and she was found to have a patellar fracture. She was placed into a knee immobilizer and instructed to follow up with orthopedics outpatient for further evaluation and treatment. [facility] Medical History (Updated 07/07/24 @ 10:59 by Stacie De La Rosa PA-C) Degenerative arthritis of knee Effusion of knee joint right Right patella fracture Ulcerative colitis Hypothyroidism Tubular adenoma Thyroid nodule Iron deficiency anemia Osteoarthritis IBD (inflammatory bowel disease) Crohn's colitis Pseudocholinesterase deficiency Hypercholesteremia Surgical History Hx of colonoscopy (~09/13/21) History of esophagogastroduodenoscopy (EGD) Hx of oral surgery Hx of partial thyroidectomy History of tonsillectomy Family History Father Lung disease Mother Bone disease Diverticular disease Family/Other Thyroid condition Stomach cancer Social History (Updated 07/09/24 @ 09:11 by Dipesh Flowers) Alcohol intake: never Patient Tobacco Use Status: Never used Tobacco Current occupational status: retired Review of Systems Const All systems reviewed & are unremarkable except as noted in HPI and below Physical Exam Vital Signs: BMI result Body Mass Index 20.7 Const General: cooperative, healthy appearing and no acute distress Resp Effort & Inspection: normal respiratory effort and able to speak in complete sentences Cardio Rate: regular rate Peripheral pulses: Peripheral pulses 2+ throughout Skin Lesions: no lesions Rashes: no rashes Extrem Other: Right knee mild effusion. Tenderness to palpation over the patella at the fracture site. No palpable defect of the quad tendon or patellar tendon. Is able to perform straight leg raise. NVI. Office Procedures AMB Fracture Care Fracture Billing Code: Fracture Billing Code Assessment & Plan Assessment & Plan (1) Right patella fracture: Code(s): S82.001A - Unspecified fracture of right patella, initial encounter for closed fracture Category: Medical Plan Mr. Barragan is a 79-year-old female who presents to the office today for evaluation of a right patellar fracture that occurred on 07/01/2024. She reports that she was walking in the parking lot at [facility] and she fell landing on the right knee. She felt immediate pain and had difficulty with bending her knee. She presented to the emergency department where x-rays were obtained and she was found to have a patellar fracture. She was placed into a knee immobilizer and instructed to follow up with orthopedics outpatient for further evaluation and treatment. While the office today, we discussed the importance of avoiding any knee flexion. At this time the patellar fracture is minimally displaced but could potentially displace with knee flexion. I have placed the patient into an ACL brace that was fit off the shelf. She can weightbear as tolerated with the ACL brace locked in extension. Patient will follow up in 4 weeks for repeat x-rays, sooner if needed. X-rays of the right knee which were obtained while in the office today and were reviewed by me, Brandi Parr PA-C, revealed redemonstration of minimally displaced patella fracture. Orders: Orders XR knee RT 2V Today M25.569 - Pain in unspecified knee Coding Level of Care Code New Pt Level 4 (17073) Diagnoses Right patella fracture S82.001A CPT Codes Fracture Care - Fracture Billing Code: Fracture Billing Code ([id number])
[2024-07-09 09:11] VITALS: BMI 20.7
--- OUTSIDE RECORDS SUMMARY | 2024-07-09 09:30 | XMS_ITS | Patient Health Record ---
Author Organization [facility] Address [address] [place] [address] Care Team Providers Care Automatic Cigar Wrapper Tender Name Role Phone Tracey (RETIRED) Hans PRICE Primary Care Provid er Unavailable Hans Tyler Unavailable [phone] Allergies Allergen (clinical drug ingredient) Drug/Non Drug Allergy documented on EMR Reaction Allergy Type Onset Date Status penicillin G Penicillin G Sodium Unknown Drug Allergy Active azathioprine Azathioprine (uncoded) hepatitis Allergy Active Reason For Referral No Information Medications Medication SIG (Take, Route, Frequency, Duration) Notes Start Date End Date Status Multi Vitamin/Minerals - 1 Orally QD Active Oxjhnbgi-Revnz-Csomwdhwz c Acid 10-5-3.3 MG as directed Orally Act magali Canasa 1000 MG _insert 1 SUPPOSITOR Y RECTALLY AT BEDTIME NEEDED Rectal prn Not-Taking Immunizations Vaccine Route Administration Date Status Comme nts Influenza Unknown 04/03/2018 Refused Problems Problem Type SNOMED Code ICD Code Onset Dates Problem Status W/U Status Risk Notes Problem Esophageal reflux (410450152) Esophageal reflux (K21.9) Active confirmed Problem Epigastric pain (15293219) Epigastric abdominal pain (R10.13) Active confirmed Problem 302747962 Encounter for screening for malignant neoplasm of colon (Z12.11) Active confirmed Problem 239877328 History of adenomatous polyp of colon (Z86.010) Active confirmed Problem 28169941 Weight loss (R63.4) Active confirmed Problem Crohn's disease of colon (33637420) Crohn's disease of colon (K50.10) Active confirmed Problem 130112249 Colon adenomas (D12.6) Active confirmed Problem Hiatal hernia (64382214) Hiatal hernia (K44.9) Active confirmed Problem 74535172 Crohns colitis, without complications (K50.10) Active confirmed Problem 478759349 Exposure to hepatitis C (Z20.5) Active confirmed Problem 77023486 Constipation, unspecified constipation type (K59.00) Active confirmed Problem Bentley esophagus (171752931) 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 Problem 9116202 Crohn's disease of large intestine without complication (K50.10) Active confirmed Problem 81480830 Fatigue, unspecified type (R53.83) Active confirmed Problem Gastric ulcer (603729456) Gastric ulcer (K25.9) Active confirmed Problem Diverticulosis of colon (461146608) Diverticulosis of colon (K57.30) Active confirmed Plan [...] Insured Coverage Start Date Coverage End Date [facility] [address] [place] [address] [id number] [place] Self - patient is the [...] 01/2011 in the distal ascending colon Denies [place],DM,CVA,Lung disease,renal dise ase Hypothroidism--thyroid nodules--Dr. Petra obando Hyperlipidemia Colonoscopy in 08/2012--no ac tive colitis-1 small tubular adenoma--no dysplasia Had a neg. U/S of the abdomen and normal CBC and LFT's in 03/2014 in [place] Colonoscopy in 07/2014--no active colitis , no adenomas, no dysplasia Negative laboratories for celiac disease in 2011 and in 2014 Osteoarthritis-right knee UTI's Negative Hepatitis C antibody Colonoscopy 05/2017--minimal colitis, [address] tubular adenoma, no dysplasia Pseudocholinesterase deficie ncy--found during her 08/2018 thyroid surgery at [facility] Colonoscopy 06/2018--no activ e colitis, no dysplasia [...]
--- OUTSIDE RECORDS SUMMARY | 2024-07-09 09:30 | XMS_ITS | Continuity of Care Document ---
Author Organization [facility] [address] [place] [address] Phone [phone] Care Team Providers Care Cw Operator Name Role Phone Hans Webb M.D. Care Team Information Recei brooke [phone] Problems Active Problems Provider Date Hypercholesterolemia SHARON [...] Medications SIG Qnty Indications Ordering Provider Date Ktrmiv19oq/ml Soln Prefill Syringe Inject 60mg every 6 months 1ml M81.0 Rica Hickman M.D. 04/26/2023 Ferrous Bjeommj572(65Fe) mg Tablets Take 1 Tablet By Mouth Twice A Day Hans Webb M.D. Atorvastatin Abzkcuy58zm Tablets Take 1 Tablet By Mouth AT [...] 0.450-4.5 00 T4,Free(Direct) 1.00 ng/dL 0.82- 1.77 Vitamin D, 25-Hydroxy 09/10/2023 [facility] Vitamin D, 25-Hydroxy 45.1 ng/mL 30.0-100. 0 1 Calcium 09/10/2023 [facility] Calcium 9.7 mg/dL 8.7-10.3 Albumin 09/10/2023 [facility] Albumin 4.4 g/dL 3.8-4.8 Thyroid Peroxidase (Tpo) Ab 09/10/2023 [facility] Thyroid Peroxidase (Tpo) Ab 14 IU/mL 0-34 PTH, Intact 09/10/2023 [facility] PTH, Intact 20 pg/mL 15-65 TSH With Reflex To FT4 04/24/2023 [facility] TSH With Reflex To FT4 <pending> Calcium 04/24/2023 [facility] Calcium <pending> 25Oh Vitamin D 04/24/2023 [facility] 25Oh Vitamin D <pending> PTH, Intact 04/24/2023 [facility] PTH, Intact <pending> 1 Vitamin D deficiency has been defined by the [place] of Medicine and an Endocrine Society practice guideline as a level of serum 25-OH vitamin D less than 20 ng/mL (1,2). The Endocrine Society went on to further define vitamin D insufficiency as a level between 21 and 29 ng/mL (2). 1. IOM ([place] of Medicine). 2010. Dietary reference intakes for calcium and D. [place]: The National Academies Press. 2. Newton RAMSEY, Sen SEYMOUR, Ceci BRYANT, et al. Evaluation, treatment, and [...]
== END 2024-07-09 09:36 | disposition home or self-care (01) ==
LOC: HO.HOS 08:55
PROVIDERS: PCP Internal Medicine; Visit Provider Physician Assistant
DX: S82.001A Unspecified fracture of right patella, initial encounter for closed fracture (principal)
CPT/HCPCS: 99204

== ENCOUNTER → 2024-07-09 09:01 | Outpatient (BNV) | payer MEDICARE, SELFPAY | PROVIDERS: Visit Provider Radiology Diagnostic Radiology | DX: M25.461 Effusion, right knee (principal); S82.001A Unspecified fracture of right patella, initial encounter for closed fracture; M11.261 Other chondrocalcinosis, right knee; M17.11 Unilateral primary osteoarthritis, right knee | CPT/HCPCS: 73560 ==

== ENCOUNTER 2024-07-15 15:46 | Outpatient (AMB) | payer MEDICARE, SELFPAY ==
--- NOTE | 2024-07-15 15:43 | A.OFFPC_ITS ---
Vital Signs 07/15/24 15:47 Height 5 ft Weight 107 lb BMI 20.9 BP 104/60 Blood Pressure Location Rt brachial Pulse 86 Pulse Source Pulse Oximeter Temp 97.3 F Pulse Oximetry (%) 98 Intake Visit Reasons: right shoulder pain Intake Note: no other issues Allergies penicillin Allergy (Severe, Uncoded 07/07/24 10:52) Hives succinylcholine Allergy (Severe, Uncoded 07/07/24 10:52) pseudocholinesterase deficiency Medication List - Last Reconciled 07/15/24 by Stacie De La Rosa PA-C alprazolam 0.5 mg PO DAILY PRN atorvastatin 40 mg PO BEDTIME calcium carbonate 500 mg PO DAILY cholecalciferol (vitamin D3) (Vitamin D3) 25 mcg PO DAILY cyanocobalamin (vitamin B-12) 3,000 mcg PO DAILY ferrous sulfate 325 mg PO BID hydrocortisone 2.5% 1 appl topical BID-TID PRN mesalamine (Lialda) 2.4 grams PO BID multivitamin 1 tab PO DAILY Saccharomyces boulardii (Probiotic (S.boulardii)) 250 mg PO DAILY vitamins A,C,S-ukzp-wkjmvb 4,296 mcg-226 mg-90 mg (PreserVision AREDS) 1 cap PO DAILY PFSH Medical History (Updated 07/15/24 @ 16:03 by Stacie De La Rosa PA-C) Right shoulder pain Fall Degenerative arthritis of knee Effusion of knee joint right Right patella fracture Ulcerative colitis Hypothyroidism Tubular adenoma Thyroid nodule Iron deficiency anemia Osteoarthritis IBD (inflammatory bowel disease) Crohn's colitis Pseudocholinesterase deficiency Hypercholesteremia Surgical History Hx of colonoscopy (~09/13/21) History of esophagogastroduodenoscopy (EGD) Hx of oral surgery Hx of partial thyroidectomy History of tonsillectomy Family History Father Lung disease Mother Bone disease Diverticular disease Family/Other Thyroid condition Stomach cancer Social History (Updated 07/09/24 @ 09:11 by Dipesh Flowers) Alcohol intake: never Patient Tobacco Use Status: Never used Tobacco Current occupational status: retired Physical exam (Primary Care) Vital Signs: Last Vital Signs Temp 97.3 F 07/15/24 15:47 Pulse 86 07/15/24 15:47 BP 104/60 07/15/24 15:47 Pulse Ox 98 07/15/24 15:47 Care Plan Goal for BP management: <130/80 BMI result Body Mass Index 20.9 normal bmi Tobacco/Smoking Status: Tobacco use Status Patient Tobacco Use Status Never used Tobacco 07/15/24 15:49 Coding Level of Care Code Est Pt Level 3 (73297) Diagnoses Fall W19.XXXA Right shoulder pain M25.511 Assessment & Plan Assessment & Plan (1) Fall: Code(s): W19.XXXA - Unspecified fall, initial encounter Category: Medical Plan: And had a mechanical fall on 07/02/2024 was seen at [facility] diagnosed with right patellar fracture. Reports since then she has been having right shoulder pain worse when she is trying to open up or carry items. Will order right shoulder x-ray. Patient currently being seen by orthopedics will send him a message to also evaluate her right shoulder in addition to the right knee. Patient to continue taking dnom-gzi-avbtpif Tylenol. Physical therapy evaluation ordered. Condition is stable will continue to monitor. (2) Right shoulder pain: Code(s): M25.511 - Pain in right shoulder Category: Medical Plan: Right shoulder x-ray ordered. Patient has good range of motion. Patient has good strength. Although has pain with range of motion and strength test. Patient to follow-up with orthopedic for this in addition to her right knee/patellar fracture. Condition is stable will continue to monitor. Plan Plan Patient was informed and verbally consented to the use of an ambient scribe for clinic note documentation during this visit. 1. Right Patellar Fracture The right patellar fracture is under observation with current use of a support magali brace to aid healing. No changes in intervention are necessary at this time. 2. Right Shoulder Pain Ordered X-rays of the right shoulder. Initiated referral to physical therapy to enhance shoulder strength and functionality. Current pain management with Tylenol continues, and follow-up with orthopedics is planned to assess treatment efficacy and adjust care if needed. Discussion Notes I discussed with the patient the symptoms and examination findings regarding her right shoulder pain. I explained that an X-ray is necessary to assess the structural integrity of the shoulder, particularly due to the history of recent trauma. We reviewed the benefits of conservative management through physical therapy to improve shoulder function without surgical intervention unless indicated otherwise by the imaging findings. I addressed the importance of follow-up with orthopedics, which is already scheduled, to revisit her management plan if her condition does not improve. We also reiterated the continuation of current pain management using Tylenol as needed, ensuring the dosage remains appropriate. Orders: Orders PT Evaluation and Treatment 07/15/24 M25.511 - Pain in right shoulder, W19.XXXA - Unspecified fall, initial encounter XR shoulder RT min 2V 07/15/24 M25.511 - Pain in right shoulder, W19.XXXA - Unspecified fall, initial encounter Patient Instructions: Patient Instructions - Obtain the X-rays of the right shoulder as soon as possible. - Begin physical therapy for the right shoulder based on the expected referral. - Continue taking Tylenol for pain management at your current dosage unless advised otherwise. - Attend the scheduled follow-up appointment with orthopedics for further evaluation. - Report any significant changes or worsening of symptoms immediately. - Ensure to use your brace consistently as advised for the patellar fracture. Scribe Plan - Not visible on output: History of Present Illness The patient is a 79-year-old female presenting with right shoulder pain following a fall onto her knees. Approximately two weeks before this visit, she sustained a right patellar fracture and sought care at the Emergency Room. Since that incident, she has persistently experienced right shoulder pain but did not seek medical attention for it initially due to the more pressing pain in her knee. Presently, her shoulder pain is aggravated by tasks such as carrying objects or lifting her arm above the chest, with noted weakness during these movements. She has not had any imaging done on her shoulder previously and denies experiencing pain in her neck, ribs, wrist, or elbow. This pain is mainly felt under the armpit and along the scapular area. The shoulder pain has limited her functional capability, particularly in terms of strength and range of motion. Review of Systems - Muskuloskeletal: Reports right shoulder pain with decreased strength particularly when pushing. - Neurologic: Denies weakness when pulling. - General: Denies neck, rib, wrist, and elbow pain. Physical Exam Appearance: Alert. Oriented X3. No acute distress. Head: Normal external exam. Normocephalic. Atraumatic. Eyes: Pupils are equal, round, and reactive to light. Extraocular movements intact. Conjunctiva and sclera normal. Eyelids normal. Throat: Moist mucous membranes. Neck: Normal inspection. Neck supple. Full range of motion. Cardiovascular: Normal heart rate and rhythm. Respiratory: No respiratory distress. Painless inspiration. Back: Full range of motion noted. Skin: Skin warm and dry. Normal skin color. Normal skin turgor. No rashes/lesions/lacerations noted. Extremities: No lower extremity edema. Right shoulder exhibits pain, especially when pushing against arms for strength test. Extremities exhibit normal range of motion other than the right knee. Patient with knee immobilizer in place. Extremities nontender except for right shoulder and Right knee. Neuro: Oriented X 3. No motor deficit. No sensory deficit. Reflexes normal.
[2024-07-15 15:47] VITALS: BP 104/60; PULSE 86; TEMP 36.3; O2SAT 98; BMI 20.9
== END 2024-07-15 16:06 | disposition home or self-care (01) ==
LOC: HO.HMCSH 15:46
PROVIDERS: PCP Internal Medicine; Visit Provider Physician Assistant Medical
DX: M25.511 Pain in right shoulder (principal); W19.XXXA Unspecified fall, initial encounter

== ENCOUNTER 2024-07-15 15:46 | Outpatient (REF) | payer MEDICARE, SELFPAY ==
--- NOTE | ~2024-07-15 | XR_ITS ---
EXAMINATION: XR SHOULDER 2 OR MORE VIEWS RIGHT HISTORY: M25.511 - Pain in right shoulder COMPARISON: There are no prior studies available for comparison. FINDINGS: Three views of the right shoulder are submitted. Osseous mineralization is normal. There is no fracture or dislocation. The glenohumeral and acromioclavicular joint spaces are preserved. The soft tissues are unremarkable. XR/XR shoulder RT min 2V IMPRESSION: Unremarkable examination of the right shoulder. Electronically signed by: Hans Roberts MD 07/16/2024 12:44 PM EDT
== END 2024-07-15 15:47 | disposition home or self-care (01) ==
LOC: HO.XRAY 15:46
PROVIDERS: PCP Internal Medicine; Visit Provider Physician Assistant Medical
DX: M25.511 Pain in right shoulder (principal); S82.001D Unspecified fracture of right patella, subsequent encounter for closed fracture with routine healing; W19.XXXD Unspecified fall, subsequent encounter
CPT/HCPCS: 73030; 99212

== ENCOUNTER → 2024-07-15 16:32 | Outpatient (BNV) | payer MEDICARE, SELFPAY | PROVIDERS: PCP Internal Medicine; Visit Provider Radiology Diagnostic Radiology | DX: M25.511 Pain in right shoulder (principal) | CPT/HCPCS: 73030 ==

== ENCOUNTER 2024-07-22 11:02 | Outpatient (AMB) | payer MEDICARE, SELFPAY ==
--- NOTE | 2024-07-22 11:07 | A.OFFVIS_ITS ---
Vital Signs 07/22/24 11:17 Height 5 ft Weight 107 lb BMI 20.9 Intake Visit Reasons: OV-right knee patellar fx-w/xrays DOI 07/01/24 Intake Note: Jade is a 79 year old female who presents today with her partner for a follow up of her right knee, DOI 07/01/24. Patient states she is having pain at night and would like to know what she can do to give her relief. Allergies penicillin Allergy (Severe, Uncoded 07/07/24 10:52) Hives succinylcholine Allergy (Severe, Uncoded 07/07/24 10:52) pseudocholinesterase deficiency HPI HPI OV-right knee patellar fx-w/xrays DOI 07/01/24: Details: Ms. Barragan is a 79 year old female who presents today with her partner for a follow up of her right knee, DOI 07/01/24. She is looking for readjustment of the ACL brace. She also reports that she has increased pain at night and is looking for recommendations in regards to pain management. [facility] Medical History (Updated 07/15/24 @ 16:03 by Stacie De La Rosa PA-C) Right shoulder pain Fall Degenerative arthritis of knee Effusion of knee joint right Right patella fracture Ulcerative colitis Hypothyroidism Tubular adenoma Thyroid nodule Iron deficiency anemia Osteoarthritis IBD (inflammatory bowel disease) Crohn's colitis Pseudocholinesterase deficiency Hypercholesteremia Surgical History Hx of colonoscopy (~09/13/21) History of esophagogastroduodenoscopy (EGD) Hx of oral surgery Hx of partial thyroidectomy History of tonsillectomy Family History Father Lung disease Mother Bone disease Diverticular disease Family/Other Thyroid condition Stomach cancer Social History Alcohol intake: never Patient Tobacco Use Status: Never used Tobacco Current occupational status: retired Review of Systems Const All systems reviewed & are unremarkable except as noted in HPI and below Physical Exam Vital Signs: BMI result Body Mass Index 20.9 Const General: cooperative, healthy appearing and no acute distress Resp Effort & Inspection: normal respiratory effort and able to speak in complete sentences Cardio Rate: regular rate Peripheral pulses: Peripheral pulses 2+ throughout Skin Lesions: no lesions Rashes: no rashes Extrem Other: Right knee mild effusion. Tenderness to palpation over the patella at the fracture site. No palpable defect of the quad tendon or patellar tendon. Is able to perform straight leg raise. NVI. Assessment & Plan Assessment & Plan (1) Right patella fracture: Code(s): S82.001A - Unspecified fracture of right patella, initial encounter for closed fracture Category: Medical Plan Ms. Barragan is a 79 year old female who presents today with her partner for a follow up of her right knee, DOI 07/01/24. She is looking for readjustment of the ACL brace. She also reports that she has increased pain at night and is looking for recommendations in regards to pain management. Phone the office today the brace was adjusted appropriately. Patient can also ice, elevate, take NSAIDs/Tylenol if she is able to take these medications for pain relief. She will follow up at her normally scheduled follow up appointment, sooner if needed. Coding Level of Care Code Global (12378) Diagnoses Right patella fracture S82.001A
[2024-07-22 11:17] VITALS: BMI 20.9
== END 2024-07-22 11:22 | disposition home or self-care (01) ==
LOC: HO.HOS 11:02
PROVIDERS: PCP Internal Medicine; Visit Provider Physician Assistant
DX: S82.001A Unspecified fracture of right patella, initial encounter for closed fracture (principal)
CPT/HCPCS: 99213

== ENCOUNTER → 2024-07-22 11:02 | Outpatient (BNVA) | payer MEDICARE, SELFPAY | PROVIDERS: PCP Internal Medicine; Visit Provider Physician Assistant | DX: S82.001D Unspecified fracture of right patella, subsequent encounter for closed fracture with routine healing (principal); X58.XXXD Exposure to other specified factors, subsequent encounter | CPT/HCPCS: 99212 ==

== ENCOUNTER 2024-08-07 11:07 | Outpatient (AMB) | payer MEDICARE, SELFPAY ==
--- NOTE | 2024-08-07 11:16 | MHC.OFFVIS ---
Intake Visit Reasons: OV - right patella fx, DOI 07/01/24 Intake Note: Jade is a 79 year old female who presents today with her partner for a follow up of her right patella fracture, DOI 07/01/24. Patient states she is wearing the brace appropriately. She said the pain has improved. She continues to have pain in her right shoulder. Allergies penicillin Allergy (Severe, Uncoded 08/07/24 11:18) Hives succinylcholine Allergy (Severe, Uncoded 08/07/24 11:18) pseudocholinesterase deficiency Medication List - Last Reconciled 08/07/24 by Taina Schwartz RN alprazolam 0.5 mg PO DAILY PRN atorvastatin 40 mg PO BEDTIME calcium carbonate 500 mg PO DAILY cholecalciferol (vitamin D3) (Vitamin D3) 25 mcg PO DAILY cyanocobalamin (vitamin B-12) 3,000 mcg PO DAILY ferrous sulfate 325 mg PO BID hydrocortisone 2.5% 1 appl topical BID-TID PRN mesalamine (Lialda) 2.4 grams PO BID multivitamin 1 tab PO DAILY Saccharomyces boulardii (Probiotic (S.boulardii)) 250 mg PO DAILY vitamins A,C,K-sjhz-zsksoh 4,296 mcg-226 mg-90 mg (PreserVision AREDS) 1 cap PO DAILY HPI HPI OV - right patella fx, DOI 07/01/24: Details: Ms. Barragan is 79-year-old female who presents the office today accompanied by her for routine follow-up status post right patellar fracture that occurred on 07/01/2024. She has been in the ACL brace weight-bearing as tolerated in extension as directed. Repeat x-rays were obtained in the office today. She reports minimal pain or discomfort. [facility] Medical History (Updated 07/15/24 @ 16:03 by Stacie De La Rosa PA-C) Right shoulder pain Fall Degenerative arthritis of knee Effusion of knee joint right Right patella fracture Ulcerative colitis Hypothyroidism Tubular adenoma Thyroid nodule Iron deficiency anemia Osteoarthritis IBD (inflammatory bowel disease) Crohn's colitis Pseudocholinesterase deficiency Hypercholesteremia Surgical History Hx of colonoscopy (~09/13/21) History of esophagogastroduodenoscopy (EGD) Hx of oral surgery Hx of partial thyroidectomy History of tonsillectomy Family History Father Lung disease Mother Bone disease Diverticular disease Family/Other Thyroid condition Stomach cancer Social History Alcohol intake: never Patient Tobacco Use Status: Never used Tobacco Current occupational status: retired Review of Systems Const All systems reviewed & are unremarkable except as noted in HPI and below Physical Exam Const General: cooperative, healthy appearing and no acute distress Resp Effort & Inspection: normal respiratory effort and able to speak in complete sentences Cardio Rate: regular rate Peripheral pulses: Peripheral pulses 2+ throughout Skin Lesions: no lesions Rashes: no rashes Extrem Other: Right knee: Minimal tenderness to palpation over the patella at the fracture site. No palpable defect of the quad tendon or patellar tendon. Is able to perform straight leg raise. Range of motion 0-45 degrees. NVI. Assessment & Plan Assessment & Plan (1) Right patella fracture: Code(s): S82.001A - Unspecified fracture of right patella, initial encounter for closed fracture Category: Medical Plan Ms. Barragan is 79-year-old female who presents the office today accompanied by her for routine follow-up status post right patellar fracture that occurred on 07/01/2024. She has been in the ACL brace weight-bearing as tolerated in extension as directed. Repeat x-rays were obtained in the office today. She reports minimal pain or discomfort. While in the office today, we discussed role of physical therapy. I placed an order in the office today with instruction to perform gentle range of motion with the cologne locking the ACL brace by 10 degrees each week until full range of motion is achieved. She may continue weight bear as tolerated. I would like to see her back in 6 weeks with repeat x-rays, sooner if needed. X-rays of the right knee which were obtained while in the office today and were reviewed by me, Brandi Parr PA-C, revealed routine healing of the right patellar fracture. Orders: Orders XR knee RT 2V Today M25.569 - Pain in unspecified knee PT Evaluation and Treatment Today S82.001A - Unspecified fracture of right patella, initial encounter for closed fracture Coding Level of Care Code Est Pt Level 3 (77443) Diagnoses Right patella fracture S82.001A
--- OUTSIDE RECORDS SUMMARY | 2024-08-07 13:28 | XMS_ITS | Continuity of Care Document ---
Author Organization [facility] [address] [place] [address] Phone [phone] Care Team Providers Care Sound Recordist Name Role Phone Hans Webb M.D. Care Team Information Recei brooke [phone] Problems Active Problems Provider Date Hypercholesterolemia SHARON [...] Medications SIG Qnty Indications Ordering Provider Date Qprrgh40de/ml Soln Prefill Syringe Inject 60mg every 6 months 1ml M81.0 Rica Hickman M.D. 04/26/2023 Ferrous Koferot470(65Fe) mg Tablets Take 1 Tablet By Mouth Twice A Day Hans Webb M.D. Atorvastatin Pwmzzqy66ex Tablets Take 1 Tablet By Mouth AT [...] 15-65 TSH With Reflex To FT4 04/24/2023 [facility] TSH With Reflex To FT4 <pending> Calcium 04/24/2023 [facility] Calcium <pending> 25Oh Vitamin D 04/24/2023 [facility] 25Oh Vitamin D <pending> PTH, Intact 04/24/2023 [facility] PTH, Intact <pending> 1 Vitamin D deficiency has been defined by the [place] of Medicine and an Endocrine Society practice guideline as a level of serum 25-OH vitamin D less than 20 ng/mL (1,2). The Endocrine Society went on to further define vitamin D insufficiency as a level between 21 and 29 ng/mL (2). 1. IOM ([place] of Medicine). 2010. Dietary reference intakes for [...]
== END 2024-08-07 12:21 | disposition home or self-care (01) ==
LOC: HO.HOS 11:08
PROVIDERS: PCP Internal Medicine; Visit Provider Physician Assistant
DX: S82.001A Unspecified fracture of right patella, initial encounter for closed fracture (principal)
CPT/HCPCS: 99213

== ENCOUNTER → 2024-08-07 11:09 | Outpatient (BNV) | payer MEDICARE, SELFPAY | PROVIDERS: Visit Provider Radiology Diagnostic Radiology | DX: M17.11 Unilateral primary osteoarthritis, right knee (principal); S82.001D Unspecified fracture of right patella, subsequent encounter for closed fracture with routine healing | CPT/HCPCS: 73560 ==

== ENCOUNTER 2024-08-07 13:42 | Outpatient (REF) | payer MEDICARE, SELFPAY ==
--- NOTE | ~2024-08-07 | XR_ITS ---
CLINICAL HISTORY: M25.569 - Pain in unspecified knee 2 view right knee Comparison: DX/AL/SR - XR KNEE RT 2V - 07/09/24 09:01 EDT Findings: There is a healing patellar fracture relatively unchanged from the prior exam There are severe osteoarthritic changes with lateral joint space narrowing similar to the prior exam. No joint effusion. No radiopaque foreign body. IMPRESSION: 1. There are severe osteoarthritic changes with lateral joint space narrowing similar to the prior exam. 2. There is a healing patellar fracture relatively unchanged from the prior exam This document has been electronically signed by: Julian Worthington MD on 08/08/2024 09:46:08
--- OUTSIDE RECORDS SUMMARY | 2024-08-08 14:02 | XMS_ITS | Continuity of Care Document ---
Author Organization [facility] [address] [place] [address] Phone [phone] Care Team Providers Care Recovery Manager Name Role Phone Hans Webb M.D. Care Team Information Recei brooke [phone] Problems Active Problems Provider Date Hypercholesterolemia SHARON [...] Medications SIG Qnty Indications Ordering Provider Date Qvsnhh17fv/ml Soln Prefill Syringe Inject 60mg every 6 months 1ml M81.0 Rica Hickman M.D. 04/26/2023 Ferrous Hfvlzus768(65Fe) mg Tablets Take 1 Tablet By Mouth Twice A Day Hans Webb M.D. Atorvastatin Anecwaq57ze Tablets Take 1 Tablet By Mouth AT [...] 15-65 TSH With Reflex To FT4 04/24/2023 [facility] TSH With Reflex To FT4 <pending> Calcium 04/24/2023 [facility] Calcium <pending> 25Oh Vitamin D 04/24/2023 [facility] 25Oh Vitamin D <pending> PTH, Intact 04/24/2023 [facility] PTH, Intact <pending> 1 Vitamin D deficiency has been defined by the [place] of Medicine and an Endocrine Society practice guideline as a level of serum 25-OH vitamin D less than 20 ng/mL (1,2). The Endocrine Society went on to further define vitamin D insufficiency as a level between 21 and 29 ng/mL (2). 1. IOM ([place] of Medicine). 2010. Dietary reference intakes for [...]
== END 2024-08-07 13:43 | disposition home or self-care (01) ==
LOC: HO.HOSX 13:42
PROVIDERS: Visit Provider Physician Assistant
DX: M25.561 Pain in right knee (principal); S82.001A Unspecified fracture of right patella, initial encounter for closed fracture
CPT/HCPCS: 73560; 99212

== ENCOUNTER 2024-08-12 12:49 | Outpatient (AMB) | payer MEDICARE, SELFPAY ==
--- NOTE | 2024-08-12 12:53 | MHC.OFFVIS ---
Vital Signs 08/12/24 13:05 Height 5 ft Weight 107 lb BMI 20.9 Handedness Right Intake Visit Reasons: New problem right shoulder pain Intake Note: Jade is a 79 year old right hand dominant female who presents today for a evaluation of her right shoulder pain. Patient reports ongoing pain for about a month. She notices that her pain is worse on the posterior aspect of the shoulder. Patient informed me that her pain is worse when she is doing overhead reaching, reaching for her back, laying down on her side. Patient notices discomfort with pronation and supination. She has tried resting, icing and Tylenol with relief. IMPRESSION: Unremarkable examination of the right shoulder Allergies penicillin Allergy (Severe, Uncoded 08/07/24 11:18) Hives succinylcholine Allergy (Severe, Uncoded 08/07/24 11:18) pseudocholinesterase deficiency HPI HPI New problem right shoulder pain: Details: Ms. Yung waters is a 79-year-old right-hand dominant female who presents to the office today for evaluation of right shoulder pain. Of note, the patient is actively being treated for a right patellar fracture. She reports that at the time of the patellar fracture on 07/01/2024 when she fell outside of [facility] she landed on her right knee but also braced herself with an outstretched hand. Ever since then she has had some achiness about the right shoulder. She was taking medication to assist with her knee pain which helped with her shoulder pain. But as she has been weaning off of this she has noticed an increase in right shoulder. [facility] Medical History (Updated 08/12/24 @ 13:19 by Brandi Parr PA-C) Right shoulder pain Fall Degenerative arthritis of knee Effusion of knee joint right Right patella fracture Ulcerative colitis Hypothyroidism Tubular adenoma Thyroid nodule Iron deficiency anemia Osteoarthritis IBD (inflammatory bowel disease) Crohn's colitis Pseudocholinesterase deficiency Hypercholesteremia Surgical History Hx of colonoscopy (~09/13/21) History of esophagogastroduodenoscopy (EGD) Hx of oral surgery Hx of partial thyroidectomy History of tonsillectomy Family History Father Lung disease Mother Bone disease Diverticular disease Family/Other Thyroid condition Stomach cancer Social History Alcohol intake: never Patient Tobacco Use Status: Never used Tobacco Current occupational status: retired Review of Systems Const All systems reviewed & are unremarkable except as noted in HPI and below Physical Exam Const General: cooperative, healthy appearing and no acute distress Resp Effort & Inspection: normal respiratory effort and able to speak in complete sentences Cardio Rate: regular rate Peripheral pulses: Peripheral pulses 2+ throughout Skin Lesions: no lesions Rashes: no rashes Extrem Other: Right shoulder: Full shoulder ROM in all planes. Positive cross-body reach. Pain along the impingement arc. Negative empty can. Negative drop arm. NVI. Office Procedures AMB Joint Injection/Aspiration Joint Injection/Aspiration Primary Site: right shoulder Prep: site was prepped using aseptic technique, ethochloride spray was applied and injection warnings given Injected: 80 mg of, DepoMedrol, with 8 mL of (2% plain lido ) and in the subcromial space Approach Used: posterolateral Procedure: The patient tolerated the procedure well, but had some pain with the injection and there was some relief with the local anesthesia Coding 56891 - Large joint Procedure code (CPT) selection complete Assessment & Plan Assessment & Plan (1) Painful arc syndrome of right shoulder: Code(s): M75.101 - Unspecified rotator cuff tear or rupture of right shoulder, not specified as traumatic Category: Medical Plan Ms. Barragan this is a 79-year-old right-hand dominant female who presents to the office today for evaluation of right shoulder pain. Of note, the patient is actively being treated for a right patellar fracture. She reports that at the time of the patellar fracture on 07/01/2024 when she fell outside of [facility] she landed on her right knee but also braced herself with an outstretched hand. Ever since then she has had some achiness about the right shoulder. She was taking medication to assist with her knee pain which helped with her shoulder pain. But as she has been weaning off of this she has noticed an increase in right shoulder. While in the office today, the patient was offered a cortisone injection in the right shoulder with 80 mg of DepoMedrol. The patient was explained the risks, benefits, and alternatives to receiving this injection. After receiving consent for the injection, the patient had the procedure done while in the office today. The patient tolerated the procedure well with no complications. Follow-up will be p.r.n., or sooner if needed. X-rays of the right shoulder which were obtained on 07/15/2024 were reviewed by Brandi betancur PA-C, revealed no acute fracture dislocation. Coding Level of Care Code Est Pt Level 3 (85273) Diagnoses Painful arc syndrome of right shoulder M75.101 CPT Codes Coding - 85668 Large joint: 96364 - Large joint ([id number])
[2024-08-12 13:05] VITALS: BMI 20.9
--- OUTSIDE RECORDS SUMMARY | 2024-08-12 15:40 | XMS_ITS | Continuity of Care Document ---
Author Organization [facility] [address] [place] [address] Phone [phone] Care Team Providers Care Prizer Hand Name Role Phone Hans Webb M.D. Care Team Information Recei brooke [phone] Problems Active Problems Provider Date Hypercholesterolemia SHARON [...] Medications SIG Qnty Indications Ordering Provider Date Tiqdpk10ll/ml Soln Prefill Syringe Inject 60mg every 6 months 1ml M81.0 Rica Hickman M.D. 04/26/2023 Ferrous Uhycsxr519(65Fe) mg Tablets Take 1 Tablet By Mouth Twice A Day Hans Webb M.D. Atorvastatin Bnpqlkh21mk Tablets Take 1 Tablet By Mouth AT [...] 15-65 TSH With Reflex To FT4 04/24/2023 [facility] TSH With Reflex To FT4 <pending> Calcium 04/24/2023 [facility] Calcium <pending> 25Oh Vitamin D 04/24/2023 [facility] 25Oh Vitamin D <pending> PTH, Intact 04/24/2023 [facility] PTH, Intact <pending> 1 Vitamin D deficiency has been defined by the [place] of Medicine and an Endocrine Society practice guideline as a level of serum 25-OH vitamin D less than 20 ng/mL (1,2). The Endocrine Society went on to further define vitamin D insufficiency as a level between 21 and 29 ng/mL (2). 1. IOM ([place] of Medicine). 2010. Dietary reference intakes for [...]
== END 2024-08-12 13:25 | disposition home or self-care (01) ==
LOC: HO.HOS 12:49
PROVIDERS: Visit Provider Physician Assistant
DX: M75.101 Unspecified rotator cuff tear or rupture of right shoulder, not specified as traumatic (principal)
CPT/HCPCS: 20610; 99213

== ENCOUNTER → 2024-08-12 12:49 | Outpatient (BNVA) | payer MEDICARE, SELFPAY | PROVIDERS: Visit Provider Physician Assistant | DX: M75.101 Unspecified rotator cuff tear or rupture of right shoulder, not specified as traumatic (principal) | CPT/HCPCS: 20610; 99212; J1010; J2003 ==

== ENCOUNTER 2024-08-14 13:31 | Outpatient (REF) | payer MEDICARE, SELFPAY ==
[2024-08-14 15:10] LABS: Thyroid Stimulating Hormone 1.98 uIU/mL (0.32-4.0)
--- OUTSIDE RECORDS SUMMARY | 2024-08-14 16:35 | XMS_ITS | Continuity of Care Document ---
Author Organization [facility] [address] [place] [address] Phone [phone] Care Team Providers Care Optical Glass Inspector Name Role Phone Hans Webb M.D. Care Team Information Recei brooke [phone] Problems Active Problems Provider Date Hypercholesterolemia SHARON [...] Medications SIG Qnty Indications Ordering Provider Date Yowlji75op/ml Soln Prefill Syringe Inject 60mg every 6 months 1ml M81.0 Rica Hickman M.D. 04/26/2023 Ferrous Bwiilem250(65Fe) mg Tablets Take 1 Tablet By Mouth Twice A Day Hans Webb M.D. Atorvastatin Ufagwad77kk Tablets Take 1 Tablet By Mouth AT [...] 15-65 TSH With Reflex To FT4 04/24/2023 [facility] TSH With Reflex To FT4 <pending> Calcium 04/24/2023 [facility] Calcium <pending> 25Oh Vitamin D 04/24/2023 [facility] 25Oh Vitamin D <pending> PTH, Intact 04/24/2023 [facility] PTH, Intact <pending> 1 Vitamin D deficiency has been defined by the [place] of Medicine and an Endocrine Society practice guideline as a level of serum 25-OH vitamin D less than 20 ng/mL (1,2). The Endocrine Society went on to further define vitamin D insufficiency as a level between 21 and 29 ng/mL (2). 1. IOM ([place] of Medicine). 2010. Dietary reference intakes for [...] SHARON Munoz 12/13/2023 E03.9 Hypothyroidism, unspecified SHARON Munzo 12/13/2023 M81.0 Age-related oste oporosis without current pathological fracture SHARON Munoz Plan of Treatment 09/10/2023 - SHARON Munoz* E03.9 Hypothyroidism, unspecified * E04.2 Multinodular (cystic) goiter NOS * M81.0 Age-related osteoporosis without current pathological fracture Functional Status Description No Information Available Mental Status Description No Information Available Referrals Description No Information Available
== END 2024-08-14 13:32 | disposition home or self-care (01) ==
LOC: HO.LAB 13:31
PROVIDERS: PCP Physician Assistant Medical; Visit Provider Psychiatry & Neurology Neurology
DX: G30.9 Alzheimer's disease, unspecified (principal)
CPT/HCPCS: 36415; 84443

== ENCOUNTER 2024-09-18 09:31 | Outpatient (REF) | payer MEDICARE, SELFPAY ==
--- OUTSIDE RECORDS SUMMARY | 2024-09-19 09:44 | XMS_ITS | Continuity of Care Document ---
Author Organization [facility] [address] [place] [address] Phone [phone] Care Team Providers Care Coordinator Of Library Services Name Role Phone Hans Webb M.D. Care Team Information Recei brooke [phone] Problems Active Problems Provider Date Hypercholesterolemia SHARON Munoz Onset: 1 06/25/2022 Osteoporosis SHARON Munoz Onset: 2022 Thyroid nodule SHARON Munoz Onset: 2022 Tubular adenoma SHARON Munoz Onset: 2022 Iron deficiency anemia SAHRON Munoz Onset: 04/24/2023 Anxiety SHARON Munoz Onset: [...] Medications SIG Qnty Indications Ordering Provider Date Ylhard80uz/ml Soln Prefill Syringe Inject 60mg every 6 months 1ml M81.0 Rica Hickman M.D. 04/26/2023 Ferrous Nxwtbqk196(65Fe) mg Tablets Take 1 Tablet By Mouth Twice A Day Hans Webb M.D. Atorvastatin Ggzplzc29vy Tablets Take 1 Tablet By Mouth AT [...] 15-65 TSH With Reflex To FT4 04/24/2023 [facility] TSH With Reflex To FT4 <pending> Calcium 04/24/2023 [facility] Calcium <pending> 25Oh Vitamin D 04/24/2023 [facility] 25Oh Vitamin D <pending> PTH, Intact 04/24/2023 [facility] PTH, Intact <pending> 1 Vitamin D deficiency has been defined by the [place] of Medicine and an Endocrine Society practice guideline as a level of serum 25-OH vitamin D less than 20 ng/mL (1,2). The Endocrine Society went on to further define vitamin D insufficiency as a level between 21 and 29 ng/mL (2). 1. IOM ([place] of Medicine). 2010. Dietary reference intakes for [...]
== END 2024-09-18 09:32 | disposition home or self-care (01) ==
LOC: HO.HOSX 09:31
PROVIDERS: Visit Provider Physician Assistant
DX: Z13.89 Encounter for screening for other disorder (principal)

== ENCOUNTER 2024-10-09 11:00 | Outpatient (RCR) | payer MEDICARE, SELFPAY ==
--- NOTE | 2024-08-12 09:15 | MHC.PT.EP ---
[facility] [place] [facility] [place] [facility] [place] Office [address] Alanna Brush [address] [phone] F: [phone] F: [phone] F: [phone] F: [phone] Physical Therapy Plan of Care Date of Evaluation: 08/12/24 Date of Surgery: Diagnosis: This is a 79 yo female presenting to skilled PT with a script for R closed patella fracture. Assessment: This is a 79 yo female presenting to skilled PT with a script for R closed patella fracture. The reports that she was walking in the parking lot at [facility] on 07/01/24 when she fell landing on her right knee. She felt immediate pain and had difficulty with bending her knee. She presented to the emergency department on 07/02/24 where x-rays were obtained and she was found to have a patellar fracture. She was placed into a knee immobilizer and instructed to follow up with orthopedics outpatient for further evaluation and treatment. At her initial eval with ortho she was placed into an ACL brace that was fit off the shelf, educated to WBAT with the ACL brace locked in extension and ice, elevate, take NSAIDs/Tylenol if she is able to take these medications for pain relief. She had a follow up with ortho again on 08/07 where PT was ordered. Note states: I placed an order in the office today with instruction to perform gentle range of motion with the cologne locking the ACL brace by 10 degrees each week until full range of motion is achieved. She may continue weight bear as tolerated. I would like to see her back in 6 weeks with repeat x-rays, sooner if needed. I will clarify if that means to continue to ambulate locked in extension still. She will follow up with ortho on 09/18/24. Patient is here today reporting occasional pain up to a 6/10, achy in nature and located around and at the patella. I with ADLs currently. She does endorse some R shoulder pain still from the fall. Assessment reveals pain that ranges from up to a 6/10 at the worst. Patient demos decreased knee ROM, strength of B LE's, TTP at patella, patella tendon and quads, impaired gait and balance due to brace and impaired posture with forward head and rounded shoulders. Based on functional limitations, impaired QOL and pain tolerance patient is a good candidate for skilled PT 2x/wk for 4wks. Frequency and Duration: The patient will be seen 2x/wk for 5 wks Short Term Goals: Patient will demo proper quad set without cues from PT in 2 wks Patient will demo at least 20 degs of knee flexion in 2wks Patient will demo good understanding of knee brace fit, healing times and conservative pain management Assisted Goals: Patient will demo at least 50 degs of knee flexion in 5 wks Patient will demo less than 3/10 pain with appropriate knee flexion in 5 wks Patient will demo improve functional movements and tolerance per subjective report by at least 50% in 5 wks Patient will progress ROM per ortho at follow up in 5 wks Treatment Plan: Modalities to reduce pain, spasms and effusion. Manual therapy to restore motion and function. Therapeutic exercise to improve strength and flexibility. Neuromuscular re-education for posture and balance. Therapeutic activities to return to functional activities of daily living. Electronically signed by: Maggie Santos PT Please sign and return to therapist. Thank you for your referral.
--- NOTE | 2024-11-05 09:04 | MHC.PT.DC ---
[facility] [place] [facility] [place] [facility] [place] [facility] [address] Alanna Brush [address] [phone] F: [phone] F: [phone] F: [phone] F: [phone] Physical Therapy Discharge Report Diagnosis: This is a 79 yo female presenting to skilled PT with a script for R closed patella fracture. Date of Surgery: Date of Evaluation: 08/12/24 Date of Discharge: 11/05/24 Treatments to Date: 9 Cancellations to Date: 0 No Shows to Date: 0 Discharge Status: Achieved Goals Improved Function Independent with HEP Discharge Summary: Patient came to 9 sessions of PT. She demonstrated no pain, good ROM and strength. She continued to have some quad atrophy on this side. She was to see the ortho but did not return to PT for 30 days so chart was DC'd. She was very compliant and I in her program, was no longer needing her brace and had no pain. DC to [facility]. Electronically signed by: Maggie Santos, PT Please sign and return to therapist. Thank you for your referral.
== END 2024-11-05 09:05 | disposition home or self-care (01) ==
LOC: HO.PTCHIC 11:00
PROVIDERS: PCP Physician Assistant Medical; Visit Provider Physician Assistant
DX: S82.001A Unspecified fracture of right patella, initial encounter for closed fracture (principal)
CPT/HCPCS: 97110; 97162

== ENCOUNTER 2024-10-10 08:00 | Outpatient (REF) | payer MEDICARE, SELFPAY ==
--- NOTE | ~2024-10-10 | XR_ITS ---
EXAMINATION: XR KNEE 1-2 VIEWS RIGHT HISTORY: M25.569 - Pain in unspecified knee COMPARISON: Comparison is made with the prior examination dated 08/07/2024. FINDINGS: AP and lateral views of the right knee are submitted. Osseous mineralization is normal. Again seen is a transverse fracture of the patella. The fracture line is less well visualized, consistent with healing. There is severe osteoarthritis of the lateral compartment with joint space narrowing and osteophyte formation. The soft tissues are unremarkable. XR/XR knee RT 2V IMPRESSION: Healing fracture of the patella. Severe osteoarthritis of the lateral compartment. Electronically signed by: Hans Roberts MD 10/10/2024 01:03 PM EDT
--- OUTSIDE RECORDS SUMMARY | 2024-10-11 08:03 | XMS_ITS | Continuity of Care Document ---
Author Organization [facility] [address] [place] [address] Phone [phone] Care Team Providers Care Behavioral Modification Assistant Name Role Phone Hans Webb M.D. Care Team Information Recei brooke [phone] Problems Active Problems Provider Date Hypercholesterolemia SHARON [...] Medications SIG Qnty Indications Ordering Provider Date Kpcunq36dn/ml Soln Prefill Syringe Inject 60mg every 6 months 1ml M81.0 Rica Hickman M.D. 04/26/2023 Ferrous Ychcfsm172(65Fe) mg Tablets Take 1 Tablet By Mouth Twice A Day Hans Webb M.D. Atorvastatin [id number] Tablets Take 1 Tablet By Mouth AT [...] 15-65 TSH With Reflex To FT4 04/24/2023 [facility] TSH With Reflex To FT4 <pending> Calcium 04/24/2023 [facility] Calcium <pending> 25Oh Vitamin D 04/24/2023 [facility] 25Oh Vitamin D <pending> PTH, Intact 04/24/2023 [facility] PTH, Intact <pending> 1 Vitamin D deficiency has been defined by the [place] of Medicine and an Endocrine Society practice guideline as a level of serum 25-OH vitamin D less than 20 ng/mL (1,2). The Endocrine Society went on to further define vitamin D insufficiency as a level between 21 and 29 ng/mL (2). 1. IOM ([place] of Medicine). 2010. Dietary reference intakes for [...]
== END 2024-10-10 08:01 | disposition home or self-care (01) ==
LOC: HO.HOSX 08:00
PROVIDERS: Visit Provider Physician Assistant
DX: M25.561 Pain in right knee (principal); S82.001A Unspecified fracture of right patella, initial encounter for closed fracture; W18.30XA Fall on same level, unspecified, initial encounter; Y93.01 Activity, walking, marching and hiking; Y92.512 Supermarket, store or market as the place of occurrence of the external cause; Y99.9 Unspecified external cause status; M17.11 Unilateral primary osteoarthritis, right knee
CPT/HCPCS: 73560; 99212

== ENCOUNTER 2024-10-10 11:34 | Outpatient (AMB) | payer MEDICARE, SELFPAY ==
--- NOTE | 2024-10-10 11:51 | MHC.OFFVIS ---
Vital Signs 10/10/24 11:56 Height 5 ft Weight 107 lb BMI 20.9 Intake Visit Reasons: OV-RT patella fx, DOI 07/01/24-6 WK-w/xray Intake Note: Jade is a 79 year old female who presents today with her partner for a follow up of her right patella fracture, DOI 07/01/24. Patient states she is doing better. She is not wearing her ACL brace today. Patient is wearing a knee sleeve. Patient finds it difficult going down the stairs. Allergies penicillin Allergy (Severe, Uncoded 08/07/24 11:18) Hives succinylcholine Allergy (Severe, Uncoded 08/07/24 11:18) pseudocholinesterase deficiency HPI HPI OV-RT patella fx, DOI 07/01/24-6 WK-w/xray: Details: Ms. Barragan is a 79-year-old female who presents to the office today for routine follow up of a left patellar fracture that occurred on 07/01/2024. Patient states that she is overall doing very well. She is attending physical therapy. She has been weaned out of the brace with physical therapy and is happy with her range of motion. No additional complaints. [facility] Medical History (Updated 08/12/24 @ 13:19 by Brandi Parr PA-C) Right shoulder pain Fall Degenerative arthritis of knee Effusion of knee joint right Right patella fracture Ulcerative colitis Hypothyroidism Tubular adenoma Thyroid nodule Iron deficiency anemia Osteoarthritis IBD (inflammatory bowel disease) Crohn's colitis Pseudocholinesterase deficiency Hypercholesteremia Surgical History Hx of colonoscopy (~09/13/21) History of esophagogastroduodenoscopy (EGD) Hx of oral surgery Hx of partial thyroidectomy History of tonsillectomy Family History Father Lung disease Mother Bone disease Diverticular disease Family/Other Thyroid condition Stomach cancer Social History Alcohol intake: never Patient Tobacco Use Status: Never used Tobacco Current occupational status: retired Review of Systems Const All systems reviewed & are unremarkable except as noted in HPI and below Physical Exam Vital Signs: BMI result Body Mass Index 20.9 Const General: cooperative, healthy appearing and no acute distress Resp Effort & Inspection: normal respiratory effort and able to speak in complete sentences Cardio Rate: regular rate Peripheral pulses: Peripheral pulses 2+ throughout Skin Lesions: no lesions Rashes: no rashes Extrem Other: Right knee: No tenderness to palpation over the patella at the fracture site. No palpable defect of the quad tendon or patellar tendon. Able to perform straight leg raise. Range of motion 0-110 degrees. NVI. Assessment & Plan Assessment & Plan (1) Right patella fracture: Code(s): S82.001A - Unspecified fracture of right patella, initial encounter for closed fracture Category: Medical Plan Ms. Barragan is a 79-year-old female who presents to the office today for routine follow up of a left patellar fracture that occurred on 07/01/2024. Patient states that she is overall doing very well. She is attending physical therapy. She has been weaned out of the brace with physical therapy and is happy with her range of motion. No additional complaints. While the office today, the patient states that she is doing very well overall. She will continue attending physical therapy until all sessions have been completed for her left knee and resume back to normal activities as tolerated. I do see the patient in the past for her right shoulder and ordered physical therapy at that time. Unfortunately, the insurance was unable to pay for both the knee and the shoulder physical therapy at the same time. Therefore, I have reordered right shoulder physical therapy. Patient will follow up PRN, sooner if needed for the right knee. X-rays of the right knee which were obtained while in the office today and were reviewed by me, Brandi Parr PA-C, revealed lateral compartment osteoarthritis and healing fracture of the patella. Orders: Orders XR knee RT 2V 10/10/24 M25.569 - Pain in unspecified knee PT Evaluation and Treatment 10/10/24 M75.101 - Unspecified rotator cuff tear or rupture of right shoulder, not specified as traumatic Coding Level of Care Code Est Pt Level 3 (45057) Diagnoses Right patella fracture S82.001A
[2024-10-10 11:56] VITALS: BMI 20.9
--- OUTSIDE RECORDS SUMMARY | 2024-10-10 12:32 | XMS_ITS | Continuity of Care Document ---
Author Organization [facility] [address] [place] [address] Phone [phone] Care Team Providers Care Jogger Operator Name Role Phone Hans Webb M.D. Care Team Information Recei brooke [phone] Problems Active Problems Provider Date Hypercholesterolemia SHARON Munoz Onset: 1 06/25/2022 Osteoporosis SHARON Munoz Onset: 2022 Thyroid nodule SHARON Munoz Onset: 2022 Tubular adenoma SHARON Munoz Onset: 2022 Iron deficiency anemia SHARON Munoz Onset: 04/24/2023 Anxiety SHARON Munoz Onset: 2022 Social History Type Date Description Comments Sex Female Sex Unknown Marital Status Has been 1 [...] Medications SIG Qnty Indications Ordering Provider Date Pxvjed23rb/ml Soln Prefill Syringe Inject 60mg every 6 months 1ml M81.0 Rica Hickman M.D. 04/26/2023 Ferrous Kzztplb822(65Fe) mg Tablets Take 1 Tablet By Mouth Twice A Day Hans Webb M.D. Atorvastatin Gbmzdqz04ha Tablets Take 1 Tablet By Mouth AT [...] 15-65 TSH With Reflex To FT4 04/24/2023 [facility] TSH With Reflex To FT4 <pending> Calcium 04/24/2023 [facility] Calcium <pending> 25Oh Vitamin D 04/24/2023 [facility] 25Oh Vitamin D <pending> PTH, Intact 04/24/2023 [facility] PTH, Intact <pending> 1 Vitamin D deficiency has been defined by the [place] of Medicine and an Endocrine Society practice guideline as a level of serum 25-OH vitamin D less than 20 ng/mL (1,2). The Endocrine Society went on to further define vitamin D insufficiency as a level between 21 and 29 ng/mL (2). 1. IOM ([place] of Medicine). 2010. Dietary reference intakes for [...]
== END 2024-10-10 12:19 | disposition home or self-care (01) ==
LOC: HO.HOS 11:35
PROVIDERS: PCP Physician Assistant Medical; Visit Provider Physician Assistant
DX: S82.001A Unspecified fracture of right patella, initial encounter for closed fracture (principal)
CPT/HCPCS: 99213

== ENCOUNTER → 2024-10-10 11:37 | Outpatient (BNV) | payer MEDICARE, SELFPAY | PROVIDERS: Visit Provider Radiology Diagnostic Radiology | DX: M17.11 Unilateral primary osteoarthritis, right knee (principal) | CPT/HCPCS: 73560 ==

== ENCOUNTER 2024-12-09 10:20 | Outpatient (REF) | payer MEDICARE, SELFPAY ==
--- NOTE | ~2024-12-09 | MM_ITS ---
EXAMINATION: DXA BONE DENSITY AXIAL HISTORY: M81.0 - Age-related osteoporosis without current pathological fracture TECHNIQUE: Subarctic Limited Dual energy absorptiometry (DEXA) of the lumbar spine, total left hip, and femoral neck was performed. COMPARISON: Comparison is made with the prior examination dated 01/26/2015. FINDINGS: The bone mineral density of the lumbar spine is 0.846 g/cm2, corresponding to a T-score of -2.8, and a Z-score of -0.6. This is indicative of osteoporosis. This represents a BMD change of -9.6% compared to the prior exam. This is statistically significant. The bone mineral density of the left total hip is 0.825 g/cm2, corresponding to a T-score of -1.4, and a Z-score of 0.7. This is indicative of osteopenia. This represents a BMD change of -10.1% compared to the prior exam. This is statistically significant. The bone mineral density of the left femoral neck is 0.757 g/cm2, corresponding to a T-score of -2.0, and a Z-score of 0.3. This is indicative of osteopenia. This represents a BMD change of -12.3% compared to the prior exam. FRACTURE RISK: The FRAX index suggests a ten year probability of major osteoporotic fracture of 17.9%, and of hip fracture 5.4%. MM/XR DEXA axial skeleton IMPRESSION: Based on bone mineral density, and according to World Health Organization (WHO) criteria, the diagnosis is consistent with osteoporosis. Statistically, 68% of repeat scans fall within 1 SD (+/- 0.010 g/cm2 for AP spine L1-L4) and 1 SD (+/- 0.012 g/cm2 for femur total) FRAX is a trademark of the [employer] [place] [employer] Metabolic Bone Disease, a World Health Organization (WHO) Collaborating Center. Electronically signed by: Hans Roberts MD 12/09/2024 11:02 AM EDT
--- OUTSIDE RECORDS SUMMARY | 2024-12-09 11:23 | XMS_ITS | Clinical Summary ---
Author Organization [facility] Address [address] [place] [phone] Phone Care Team Providers Care Engineer Design [employer] Construction Name Role Phone Hans Webb Primary Care Provider Allergies Active Allergy Reactions Criticality Noted Date Comments Penicillin 10/01/2023 Other Reaction(s): ULCERATIVE COLITIS Succinylcholine 10/01/2023 Other Reaction(s): penicillin Patient has butylcholinesterase deficiency and cannot metabolize succhinylcholine, she will have a profound and prolonged neuromuscular block with minimal doses of succinylcholine. Medications ID-vitamin D (13-593) 1000 units tablet 1 tablet Orally Once a day Active calcium carbonate 1,250 mg (500 mg elemental) capsule Take 1,250 mg by mouth 2 (two) times a day with meals. Active Family History Relation Status Comments Father Mother Social History Tobacco Use Types Packs/Day Years Used Date Smoking Tobacco: Never Smokeless Tobacco: Never Tobacco Cessation:Counseling Given: Not Answered Alcohol Use Standard Drinks/Week Comments Not Currently 0 (1 standard drink = 0.6 oz pur e alcohol) Education Answer Date Recorded Are you interested in more education? Not on luana e 09/25/2023 Are you concerned about learning? Not on file 09/25/2023 No 09/25/2023 No 09/25/2023 Digital Access Answer Date Recorded No 09/25/2023 No 09/25/2023 Reliable internet access at home? Not on file 09/25/2023 Device with a working camera? Not on file Comments Unknown Sex and Gender Information Value Date Recorded Sex Assigned at Not on file Legal Sex Female 10:06 PM EDT Gender Identity Not on file Sexual Orientation Not on file Last Filed Vital Signs Vital Sign Reading Time Taken Comments Blood Pressure 127/59 10/01/2023 3:40 PM EDT Pulse 70 10/01/2023 3:40 PM EDT Temperature - - Respiratory Rate - - Oxygen Saturation - - Inhaled Oxygen Concentration - - Weight 50.5 kg (111 lb 6.4 oz) 10/01/2023 3:40 P M EDT Height 157.5 cm (5' 2 ) 10/01/2023 3:40 PM EDT Body Mass Index 20.38 10/01/2023 3:40 PM EDT Plan of Treatment Health Maintenance Due Date Last Done Comments Adult Td,Tdap Booster 1945 LIPID PANEL 1945 DEPRESSION SCREENING 1959 HEPATITIS C SCREENING 06/28/1965 PNEUMOCOCCAL VACCINES (50+ y ears) (1 of 1 - PCV) 06/28/1997 ZOSTER VACCINES (1 of 2) 06/28/1997 OSTEOPOROSIS SCREENING INITI AL (ONE-TIME) 06/28/2012 RSV VACCINE (1 - 1-dose 75+ series) 06/28/2022 COVID-19 VACCINE ( - 2023-2 5 season) 2023 SMOKING STATUS SCREENING (On ce After 26 Yrs) Completed 10/01/2023 HEPATITIS A VACCINES Aged Out No long er eligible based on patient's age to complete this topic HIB VACCINES Aged Out No longer eligi ble based on patient's age to complete this topic MENINGOCOCCAL VACCINES (ACWY) Aged Out No longer eligible based on patient's age to complete this topic MENINGOCOCCAL VACCINES (B) Aged Out N o longer eligible based on patient's age to complete this topic Medical Devices Not on file Insurance [place] [place] MED[place] BLUE REPLACEMENT MEDICARE [place] [address] [place] [address] [address] [address] [place] [address] MEDICARE PPO BLUE REPLACEMENT [facility] MEDICARE PPO BLUE REPLACEMENT [facility] MEDICARE PPO BLUE REPLACEMENT Care Teams Engineer Design And Construction Relationship Specialty Start Date End Date Hans Webb DO [address] [place] [phone] PCP - General Internal Medicine 09/25/23 Additional Source Comments The information contained in this document represents components of the legal health record. It is not the complete legal health record.[facility]
--- OUTSIDE RECORDS SUMMARY | 2024-12-09 11:23 | XMS_ITS | Continuity of Care Document ---
Author Organization [facility] [address] [place] [address] Phone [phone] Care Team Providers Care Corrections Caseworker Name Role Phone Hans Webb M.D. Care Team Information Recei brooke [phone] Problems Active Problems Provider Date Hypercholesterolemia SHARON [...] Medications SIG Qnty Indications Ordering Provider Date Cwwerx96nt/ml Soln Prefill Syringe Inject 60mg every 6 months 1ml M81.0 Rica Hickman M.D. 04/26/2023 Ferrous Ruyiwae818(65Fe) mg Tablets Take 1 Tablet By Mouth Twice A Day Hans Webb M.D. Atorvastatin Joclatu85mz Tablets Take 1 Tablet By Mouth AT [...] 15-65 TSH With Reflex To FT4 04/24/2023 [facility] TSH With Reflex To FT4 <pending> Calcium 04/24/2023 [facility] Calcium <pending> 25Oh Vitamin D 04/24/2023 [facility] 25Oh Vitamin D <pending> PTH, Intact 04/24/2023 [facility] PTH, Intact <pending> 1 Vitamin D deficiency has been defined by the [place] of Medicine and an Endocrine Society practice guideline as a level of serum 25-OH vitamin D less than 20 ng/mL (1,2). The Endocrine Society went on to further define vitamin D insufficiency as a level between 21 and 29 ng/mL (2). 1. IOM ([place] of Medicine). 2010. Dietary reference intakes for [...]
== END 2024-12-09 10:21 | disposition home or self-care (01) ==
LOC: HO.MAMMO 10:20
PROVIDERS: PCP Physician Assistant Medical; Visit Provider Physician Assistant Medical
DX: M81.0 Age-related osteoporosis without current pathological fracture (principal)
CPT/HCPCS: 77080

== ENCOUNTER → 2024-12-09 10:30 | Outpatient (BNV) | payer MEDICARE, SELFPAY | PROVIDERS: PCP Physician Assistant Medical; Visit Provider Radiology Diagnostic Radiology | DX: E28.39 Other primary ovarian failure (principal) | CPT/HCPCS: 77080 ==